=== PATIENT | female | born 1935 | race Caucasian/White ===

== ENCOUNTER 2016-11-24 22:56 | Inpatient (IN) | payer MEDICARE, MEDICAID ==
--- NOTE | 2016-11-24 23:28 | ED Physician Chart ---
Chief Complaint/HPI - Patient Information Date Seen:: 11/24/16 Time Seen:: 23:10 Chief Complaint:: agitation History of Present Illness:: reportedly yelling at staff at SNF. Allergies:: Allergies Allergy/AdvReac Type Severity Reaction Status Date / Time No Known Allergies Allergy Verified 11/24/16 23:14 Historian:: Patient Review:: Nurse's Note Reviewed Review of Systems - Review of Systems General/Constitutional: No fever, No chills Skin: No skin lesions Head: No headache Eyes: No loss of vision ENT: No earache Neck: No neck pain, No thyromegaly Cardio Vascular: No chest pain, No palpitations Pulmonary: No SOB GI: No nausea, No vomiting G/U: No dysuria Musculoskeletal: No bone or joint pain Endocrine: No polyuria, No polydipsia Psychiatric: Prior psych history Hematopoietic: No bruising Allergic/Immuno: No urticaria Neurological: No syncope Past Medical History - Past Medical History Past Medical History: HTN, Dyslipidemia, Dementia, Other (hyperlipidemia; psychosis; hearin impaired) Family History: Heart disease, HTN Social History: No Alcohol, Other (former smoker) Surgical History: other (tonsillectomy) Psychiatricy History: Dementia Medication: Reviewed Family Medical History - Family Member Mother History Unknown: Yes Physical Exam - Physical Examination General/Constitutional: Well-developed, well-nourished, Alert, No distress Other Gen/Cons comments:: know the correct month but not the correct year. Head: Atraumatic Eyes: Lids, conjuctiva normal, PERRL Skin: Nl inspection, No rash, No skin lesions, No ecchymosis ENMT: External ears, nose nl, TM canals nl, Nasal exam nl, Lips, teeth, gums nl , Oropharynx nl, Tonsils nl Neck: No nuchal rigidity Respiratory: Nl effort/Exclusion, Clear to Auscultation, No Wheeze/Rhonchi/Rales Cardio Vascular: RRR Other Cardio Vascular comments:: 4/6 systolic murmur GI: No tenderness/rebounding/guarding, No organomegaly : No CVA tenderness Extremities: Normal digits & nails Other Extremities comments:: 1/4 pretibial edema; varicose veins Neuro/Psych: No focal deficits Labs/Radiology/EKG Results - Lab Results Results: Laboratory Results - last 24 hr 11/24/16 11/24/16 11/24/16 23:29 23:29 23:29 WBC 5.9 RBC 3.84 Hgb 11.4 L Hct 33.3 L MCV 86.9 MCH 29.7 MCHC Differential 34.2 RDW 12.2 Plt Count 174 MPV 8.5 Neutrophils % 66.2 Lymphocytes % 24.4 Monocytes % 6.0 Eosinophils % 3.4 Basophils % 0.0 Sodium 136 Potassium 4.1 Chloride 111 H Carbon Dioxide 25.9 Anion Gap 3.2 L BUN 38 H Creatinine 1.0 Est GFR ( Amer) TNP Est GFR (Non-Af Amer) TNP BUN/Creatinine Ratio 38.0 Glucose 86 Calcium 9.3 Total Bilirubin 0.4 AST 14 ALT 9 Alkaline Phosphatase 59 Total Protein 6.5 Albumin 3.6 L Globulin 2.9 Albumin/Globulin Ratio 1.2 TSH 2.11 Urine Source Urine Color Urine Clarity Urine pH Ur Specific [place] Urine Protein Urine Glucose (UA) Urine Ketones Urine Blood Urine Nitrate Urine Bilirubin Urine Urobilinogen Ur Leukocyte Esterase Urine RBC Urine WBC Ur Epithelial Cells Urine Bacteria 11/24/16 23:45 WBC RBC Hgb Hct MCV MCH MCHC Differential RDW Plt Count MPV Neutrophils % Lymphocytes % Monocytes % Eosinophils % Basophils % Sodium Potassium Chloride Carbon Dioxide Anion Gap BUN Creatinine Est GFR ( Amer) Est GFR (Non-Af Amer) BUN/Creatinine Ratio Glucose Calcium Total Bilirubin AST ALT Alkaline Phosphatase Total Protein Albumin Globulin Albumin/Globulin Ratio TSH Urine Source CLEAN C Urine Color YELLOW Urine Clarity SLIGHT HAZY Urine pH 5.5 Ur Specific [place] 1.020 Urine Protein NEGATIVE Urine Glucose (UA) NEGATIVE Urine Ketones NEGATIVE Urine Blood TRACE Urine Nitrate NEGATIVE Urine Bilirubin NEGATIVE Urine Urobilinogen 0.2 Ur Leukocyte Esterase SMALL H Urine RBC 0-2 Urine WBC 10-25 H Ur Epithelial Cells FEW Urine Bacteria 1+ H - EKG Interpretations Rate & Rhythm: NSR; rate 56 [place]: normal Intervals: normal Comments:: borderline first degree AV block; old septal WI Assessment - Assessment General Assessment: oral rehydration should be sufficient. ED Septic Shock - . Is Septic Shock (SBP<90, OR Lactate>4 mmol\L) present?: No Reassessment (Disposition) - Reassessment Reassessment Condition:: Unchanged - Diagnosis Diagnosis:: anemia; dehydration; UTI; agitation - Patient Disposition Admitted to:: [facility] Admitting Medical Physician:: Ayan Hunter Admitting Psych Physician:: Gasper Jimenez Condition at Disposition:: Unchanged
[2016-11-24 23:42] LABS: % EOSINOPHILS 3.4 % (0.0-5.0); % LYMPHOCYTES 24.4 % (20.0-50.0); % NEUTROPHILS 66.2 % (40.0-80.0); HEMATOCRIT 33.3 % (35.0-45.0); HEMOGLOBIN 11.4 gm/dL (11.7-16.1); MEAN CELL VOLUME 86.9 fl (81-100); MEAN CORPUSCULAR HEMOGLOBIN 29.7 pg (27.0-31.0); MEAN CORPUSCULAR HGB CONC 34.2 pg (28.0-36.0); MEAN PLATELET VOLUME 8.5 fl; NEUTROPHILE ABSOLUTE 3.9 Th/cmm (1.8-8.0); PLATELET COUNT 174 Th/cmm (150-400); RED BLOOD COUNT 3.84 Mil/cmm (3.80-5.20); RED CELL DISTRIBUTION WIDTH 12.2 % (11.5-20.0); WHITE BLOOD COUNT 5.9 Th/cmm (4.8-10.8)
[2016-11-24 23:50] LABS: ALB/GLOB RATIO 1.2 (1.0-1.8); ALKALINE PHOSPHATASE 59 U/L (34-104); ANION GAP 3.2 (7.0-16.0); BILIRUBIN,TOTAL 0.4 mg/dL (0.3-1.0); BUN - UREA NITROGEN 38 mg/dL (7-25); CALCIUM SERUM 9.3 mg/dL (8.6-10.3); CARBON DIOXIDE 25.9 mEq/L (21.0-31.0); CHLORIDE 111 mEq/L (98-107); GLUCOSE 86 mg/dL (70-105); POTASSIUM SERUM 4.1 mEq/L (3.5-5.1); SGOT 14 U/L (13-39); SGPT/ALT 9 U/L (7-52); SODIUM SERUM 136 mEq/L (136-145)
[2016-11-25 00:05] LABS: URINE BILIRUBIN NEGATIVE (NEGATIVE); URINE BLOOD TRACE (NEGATIVE); URINE COLOR YELLOW; URINE GLUCOSE (UA) NEGATIVE (NEGATIVE); URINE KETONE NEGATIVE (NEGATIVE); URINE PH 5.5; URINE PROTEIN NEGATIVE (NEGATIVE); URINE UROBILINOGEN 0.2 E.U./dL (0.2 - 1.0)
[2016-11-25 00:06] LABS: URINE BACTERIA 1+ /hpf (NONE SEEN); URINE EPITHELIAL CELLS FEW /lpf (FEW); URINE RBC 0-2 /hpf (0-5)
[2016-11-25] MEDS ORDERED: Magnesium Hydroxide (MOM) 30 mL UDC PO PRN (01:07)
[2016-11-25] MEDS ORDERED: Acetaminophen 500 MG TAB PO PRN (01:20)
[2016-11-25 01:27] VITALS: BP 134/76
[2016-11-25] MEDS: Atorvastatin Calcium 10 MG TAB PO SCH (08:24)
[2016-11-25] MEDS: Aspirin 81mg Chewable Tab PO SCH (08:25)
[2016-11-25] MEDS: Lactobacillus Rhamnosus 10 Billion CFU Capsule PO SCH (08:25)
--- NOTE | 2016-11-25 21:38 | Admit Criteria Form ---
Admit Criteria Forms - Admit Criteria Diagnosis: PSYCHIATRIC DISORDERS Clinical Indications for Inpatient Care (Place 'X' for any and all applicable criteria): Ongoing inpatient care may be needed for ANY ONE of the following(1)(2)(3)(4)(6) (7)(8): [ ]I. Danger to self or others not manageable at lower level of care. [ ]II. Grave disability (eg, inability to perform self care necessary at lower level of care) [X]III. Agitation or inappropriate behavior interfering with care for primary condition (eg, attempting to discontinue lines or drains prematurely, unable to cooperate with respiratory care) [ ]IV. Severe disability or disorder indicated by ALL of the following: [ ]a) Severe behavioral health disorder-related symptoms or condition indicated by ANY ONE of the following: [ ]i) Severe problem with cognition, memory, judgment, or impulse control [ ]ii) Severe clinical manifestations (eg, hallucinations, delusions, other acute psychotic symptoms, brayan, extreme agitation or anxiety) [ ]b) Patient management at lower level of care is not feasible until acute intervention or modification is initiated. Extended stay beyond goal length of stay for the primary condition may be indicated when ANY ONE of the following is present: (1)(2)(3)(4): [ ]a) Patient is a danger to self or others and not manageable at lower level of care. [ ]b) Behavior crisis management, including physical or chemical restraints, is required and is not available at a lower level of care. [ ]c) Behavioral symptoms (e.g., agitation, somnolence, inappropriate behavior) are present, and are not manageable at a lower level of care. [ ]d) Patient cannot understand follow-up treatment and crisis plan. [ ]e) Provider and supports are not sufficiently available at lower level of care. [ ]f) Patient cannot participate (e.g., verify absence of plan for harm) and is in needed of monitoring. The original [facility] [employer] content created by [facility] [employer] has been revised. The portions of the content which have been revised are identified through the use of italic text or in bold, and [facility] [employer] has neither reviewed nor approved the modified material. All other unmodified content is copyright [facility] [employer]. Please see references footnoted in the original [facility] edition 2016 Admit Criteria Met?: Yes
--- NOTE | 2016-11-25 23:48 | Psychosocial Evaluation ---
FACILITY: [facility] PATIENT NAME: CASANDRA VALDEZ MR#: [id number] CLINICIAN: Gasper Jimenez M.D. DATE OF ADMISSION: 11/25/2016 DATE OF VISIT: JUSTIFICATION FOR HOSPITALIZATION: Aggressive, yelling at [facility], screaming uncontrollably, unable to be cared for at a lower level of care. CHIEF COMPLAINT: "I do not know why I am here." HISTORY OF PRESENT ILLNESS: An 81-year-old female, unclear psychiatric history, apparently was agitated at the [facility], yelling, yelling uncontrollably, screaming at nursing staff, alert and oriented to name. She knows she is in the hospital. She has no idea why she is in the hospital. She does not know the state that she is in, attesting to depression, feeling upset, overwhelmed, fair sleep, fair appetite. PAST PSYCHIATRIC HISTORY: Denies. "I do not think so." FAMILY HISTORY: Unknown. SOCIAL HISTORY: The patient born in [place], not , one son who she states lives in [place]. Denies drugs. Denies alcohol. Denies tobacco. MEDICATIONS: Reviewed. Under medical, please see full H and P by Dr. Hunter. MENTAL STATUS EXAMINATION: Stated age, fair eye contact. Speech was within normal limits. Mood clinically bad. Affect angry. Thought processes were fragmented. No SI, no HI. No overt evidence of psychosis, but she is somewhat confused as to why and how she got here. Poor insight, poor judgment, questionable impulsivity. PROVISIONAL DIAGNOSES: Mood unspecified, psychosis unspecified, anxiety unspecified. Under medical, please see full H and P. ESTIMATED LENGTH OF STAY: 7-10 days. ASSESSMENT: The patient is requiring inpatient hospitalization, yelling, screaming uncontrollably, unable to be cared for at a lower level of care, aggressive, agitated. PLAN: We will restart medications. TREATMENT PLAN: Includes group as well as milieu therapy. CONDITIONS FOR DISCHARGE: Improved mood, improved affect, cessation of any SI or HI, better control of any psychotic or mood symptoms. JOB# [id number] ASIYA
[2016-11-26] MEDS: Atorvastatin Calcium 10 MG TAB PO SCH (08:45)
[2016-11-26] MEDS: Lactobacillus Rhamnosus 10 Billion CFU Capsule PO SCH (08:45)
[2016-11-26] MEDS: Aspirin 81mg Chewable Tab PO SCH (08:45)
--- NOTE | 2016-11-27 02:32 | Progress Notes ---
SUBJECTIVE: The patient was seen, chart reviewed, and discussed with staff. The patient remains aggressive, verbally aggressive, confused, disorganized, screaming, yelling, stating, "Did you tell the staff that I'm a criminal." The patient is paranoid, stating that I am not a doctor. "___What?_ you think I 'm crazy." Very difficult to interview. Staff concerned because of her disorganized and manic appearing behaviors. ASSESSMENT: The patient remains symptomatic, paranoid, confused, screaming, yelling episodes, angry, irritable, verbally ___abusive__ towards staff. PLAN: We will continue to monitor. The patient is not safe for a lower level of care. We will increase Seroquel dosing JOB# [id number] MTDD
[2016-11-27] MEDS: Atorvastatin Calcium 10 MG TAB PO SCH ×2 (09:28→09:36)
[2016-11-27] MEDS: Lactobacillus Rhamnosus 10 Billion CFU Capsule PO SCH ×2 (09:29→09:36)
[2016-11-27] MEDS: Aspirin 81mg Chewable Tab PO SCH ×2 (09:29→09:36)
--- NOTE | 2016-11-27 23:59 | Progress Notes ---
SUBJECTIVE: The patient is seen, chart reviewed, discussed with staff. The patient remains aggressive, yelling at me, screaming at me, claiming I came into the room in a middle of the night and changed her. The patient is essentially belligerent, screaming, I am not able to get any questions in, still remains symptomatic, resistive to care. ASSESSMENT: The patient remains symptomatic, paranoid, screaming, yelling, verbally accosting staff. PLAN: We will continue to monitor. The patient is not safe for a lower level of care. We will continue to titrate Seroquel. JOB# [id number]
[2016-11-28] MEDS: Atorvastatin Calcium 10 MG TAB PO SCH (09:47)
[2016-11-28] MEDS: Aspirin 81mg Chewable Tab PO SCH (09:47)
[2016-11-28] MEDS: Lactobacillus Rhamnosus 10 Billion CFU Capsule PO SCH (09:48)
--- NOTE | 2016-11-28 17:37 | History & Physical ---
ADMIT DATE: 11/25/2016 REASON FOR CONSULTATION: Medical management. HISTORY OF PRESENT ILLNESS: This is an 81-year-old female with underlying history of hypertension, hyperlipidemia, psychiatric disorder, was admitted to [facility] by Dr. Jimenez. Dr. Jimenez requested medical H and P on this patient. The patient states she is doing fine. C/o right hip pain. No recent fall or injury. Denies any lower extremity weakness or numbness. No chest pain, no shortness of breath, dizziness, palpitations or other complaints. PAST MEDICAL HISTORY: Hypertension, hyperlipidemia. PAST SURGICAL HISTORY: No reports of any past surgery. FAMILY HISTORY: Noncontributory. SOCIAL HISTORY: Lives at nursing facility. No reported alcohol, tobacco or street drug use. CURRENT MEDICATIONS: The patient is currently on Tylenol, aspirin, atorvastatin, vitamin D3, ciprofloxacin, Celexa, Vistaril, Ativan, and Colace. ALLERGIES: No known drug allergies. REVIEW OF SYSTEMS: As per HPI, 12-point system appears negative. PHYSICAL EXAMINATION: VITAL SIGNS: Temperature 98.1, pulse 60, respirations 20, blood pressure 130/94, oxygen 96% on room air, pain 0/10. GENERAL APPEARANCE: The patient does not seem in acute distress. CARDIOVASCULAR: S1, S2 normal. LUNGS: Clear to auscultation bilaterally. ABDOMEN: Soft, nontender, no guarding and no rigidity. NEUROLOGIC: The patient is awake, but little confused. Follows commands. Neurological exam grossly nonfocal. AVAILABLE LABORATORY DATA: Reviewed ASSESSMENT: 1. Urinary tract infection, improving. 2. Right hip pain, possibly secondary to degenerative joint disease. 3. Hypertension. 4. Hyperlipidemia. 5. Generalized weakness. 6. Psychiatric disorder. PLAN: The patient will continue ciprofloxacin. NSAIDs as needed for pain. Continue Lipitor and aspirin. Monitor blood pressures. Continue Cozaar. Psych management per Dr. Jimenez. The patient's condition and plan of care discussed with nursing staff. JOB# [id number] [facility]
--- NOTE | 2016-11-29 02:23 | Progress Notes ---
DATE: 11/28/2016 SUBJECTIVE: The patient was seen, chart reviewed, and discussed with staff. The patient remains aggressive, yelling, screaming, forgetful, states she came from home, remains belligerent, symptomatic, labile, impulsive, resistive to care at times, still paranoid. She, on a positive note, is taking her medications, no side effects. Needs prompting for ADLs and prompting to eat. ASSESSMENT: The patient remains symptomatic, paranoid, still yelling, screaming, aggressive, and labile. PLAN: Continue to monitor. Continue to adjust her medications. Monitor for any overt side effects. [facility]# [id number]
--- NOTE | 2016-11-30 04:30 | Progress Notes ---
DATE: 11/29/2016 SUBJECTIVE: The patient seen, chart reviewed, and discussed with staff. The patient remains upset, still yelling, screaming episodes, rude, labile, irritable, and resistive to care. Still somewhat paranoid. However, she is taking medications. She seems somewhat calmer on exam. No side effects. Needing prompting for ADLs, prompting to eat. ASSESSMENT: The patient remains symptomatic, still yelling, screaming, aggressive, and labile. PLAN: We will continue to monitor. Continue to titrate medications. The patient is not safe for a lower level of care due to the severity of her symptoms. JOB# [id number]
[2016-11-30] MEDS: Atorvastatin Calcium 10 MG TAB PO SCH (09:39)
[2016-11-30] MEDS: Lactobacillus Rhamnosus 10 Billion CFU Capsule PO SCH (09:39)
[2016-11-30] MEDS: Aspirin 81mg Chewable Tab PO SCH (09:39)
--- NOTE | 2016-11-30 22:12 | Progress Notes ---
DATE: 11/30/2016 SUBJECTIVE: The patient seen, chart reviewed, discussed with staff. The patient still remains upset, still with some yelling episodes, screaming episodes, intrusive, demanding. At times, resistive to care; however, she does seem to be calmer, less paranoid, less suspicion, no longer making bizarre allegations, taking her medications, no side effects, seems to be tolerating medications, no EPS noted. No oversedation. Her discharge plan is unclear at this time. The patient remains symptomatic, not safe for a lower level of care. The patient is coming from [facility] ____ we are not quite certain whether she can go back there or not. The patient currently considered gravely disabled; therefore, cannot care for basic needs. ASSESSMENT: The patient is gravely disabled, unclear discharge planning, still symptomatic as noted. PLAN: Continue to monitor, encourage med compliance, we will continue to titrate medications as tolerated. [facility]# [id number]
[2016-12-01] MEDS: Aspirin 81mg Chewable Tab PO SCH (09:52)
[2016-12-01] MEDS: Atorvastatin Calcium 10 MG TAB PO SCH (09:53)
[2016-12-01] MEDS: Lactobacillus Rhamnosus 10 Billion CFU Capsule PO SCH (09:53)
--- NOTE | 2016-12-02 00:43 | Progress Notes ---
DATE: 12/01/2016 SUBJECTIVE: The patient was seen, chart reviewed, and discussed with staff. The patient is still screaming, yelling, asks for help, screams for help, and when help comes, she does not want it, bizarre, odd, demanding to leave, but unable to be cared for at a lower level of care given the severity of her current symptoms. The patient is eating fairly well and sleeping well. She is very isolative and withdrawn. No EPS noted. No overt sedation. ASSESSMENT AND PLAN: The patient remains symptomatic, yelling, screaming, still intrusive, verbally aggressive towards staff. PLAN: Continue to titrate medications. We will monitor closely for any undue side effects. The patient does have a pretty poor memory as well, claiming that she is able to live at home by herself, but she was coming from a nursing facility. JOB# [id number]
[2016-12-02] MEDS: Aspirin 81mg Chewable Tab PO SCH (09:56)
[2016-12-02] MEDS: Atorvastatin Calcium 10 MG TAB PO SCH (09:56)
[2016-12-02] MEDS: Lactobacillus Rhamnosus 10 Billion CFU Capsule PO SCH (09:56)
--- NOTE | 2016-12-02 13:10 | General Progress Note ---
Subjective - Review of Systems Service Date: 12/02/16 Subjective: patient doing ok nurse reported patient has been refusing her meds Objective - Results Result Diagrams: 11/24/16 23:29 11/24/16 23: Recent Labs: Laboratory Last Values WBC 5.9 Th/cmm (4.8-10.8) 11/24/16 23: RBC 3.84 Mil/cmm (3.80-5.20) 11/24/16 23: Hgb 11.4 gm/dL (11.7-16.1) L 11/24/16 23: Hct 33.3 % (35.0-45.0) L 11/24/16: MCV 86.9 fl (81-100) 11/24/16 23: MCH 29.7 pg (27.0-31.0) 11/24/16: MCHC Differential 34.2 pg (28.0-36.0) 11/24/16: RDW 12.2 % (11.5-20.0) 11/24/16: Plt Count 174 Th/cmm (150-400) 11/24/16 23: MPV 8.5 fl 11/24/16 23: Neutrophils % 66.2 % (40.0-80.0) 11/24/16: Lymphocytes % 24.4 % (20.0-50.0) 11/24/16: Monocytes % 6.0 % (2.0-10.0) 11/24/16: Eosinophils % 3.4 % (0.0-5.0) 11/24/16: Basophils % 0.0 % (0.0-2.0) 11/24/16 23: Sodium 136 mEq/L (136-145) 11/24/16 23: Potassium 4.1 mEq/L (3.5-5.1) 11/24/16 23: Chloride 111 mEq/L (98-107) H 11/24/16 23: Carbon Dioxide 25.9 mEq/L (21.0-31.0) 11/24/16 23: Anion Gap 3.2 (7.0-16.0) L 11/24/16 23: BUN 38 mg/dL (7-25) H 11/24/16 23:29 Creatinine 1.0 mg/dL (0.6-1.2) 11/24/16 23:29 Est GFR ( Amer) TNP 11/24/16 23:29 Est GFR (Non-Af Amer) TNP 11/24/16 23:29 BUN/Creatinine Ratio 38.0 11/24/16 23:29 Glucose 86 mg/dL (70-105) 11/24/16 23:29 Calcium 9.3 mg/dL (8.6-10.3) 11/24/16 23:29 Total Bilirubin 0.4 mg/dL (0.3-1.0) 11/24/16 23:29 AST 14 U/L (13-39) 11/24/16 23:29 ALT 9 U/L (7-52) 11/24/16 23:29 Alkaline Phosphatase 59 U/L (34-104) 11/24/16 23:29 Total Protein 6.5 gm/dL (6.0-8.3) 11/24/16 23:29 Albumin 3.6 gm/dL (3.7-5.3) L 11/24/16 23:29 Globulin 2.9 gm/dL 11/24/16 23:29 Albumin/Globulin Ratio 1.2 (1.0-1.8) 11/24/16 23: TSH 2.11 uIU/ml (0.34-5.60) 11/24/16 23:29 Urine Source CLEAN C 11/24/16 23:45 Urine Color YELLOW 11/24/16 23:45 Urine Clarity SLIGHT HAZY (CLEAR) 11/24/16 23:45 Urine pH 5.5 11/24/16 23:45 Ur Specific [place] 1.020 (1.005-1.030) 11/24/16 23:45 Urine Protein NEGATIVE mg/dL (NEGATIVE) 11/24/16 23:45 Urine Glucose (UA) NEGATIVE mg/dL (NEGATIVE) 11/24/16 23:45 Urine Ketones NEGATIVE mg/dL (NEGATIVE) 11/24/16 23:45 Urine Blood TRACE (NEGATIVE) 11/24/16 23:45 Urine Nitrate NEGATIVE (NEGATIVE) 11/24/16 23:45 Urine Bilirubin NEGATIVE (NEGATIVE) 11/24/16 23:45 Urine Urobilinogen 0.2 E.U./dL (0.2 - 1.0) 11/24/16 23:45 Ur Leukocyte Esterase SMALL (NEGATIVE) H 11/24/16 23:45 Urine RBC 0-2 /hpf (0-5) 11/24/16 23:45 Urine WBC 10-25 /hpf (0-5) H 11/24/16 23:45 Ur Epithelial Cells FEW /lpf (FEW) 11/24/16 23:45 Urine Bacteria 1+ /hpf (NONE SEEN) H 11/24/16 23:45 RPR NONREACTIVE (NONREACTIVE) 11/24/16 23:29 - Physical Exam Vitals and I&O: Vital Signs Temp 97.8 F 12/02/16 06:36 Pulse 60 12/02/16 06:36 Resp 19 12/02/16 06:36 BP 119/60 12/02/16 06:36 Pulse Ox 98 12/02/16 06:36 Intake & Output 12/01/16 12/02/16 12/02/16 18:59 06:59 18:59 Intake Total 1800 120 Balance 1800 120 Intake: Oral 1800 120 Other: # Voids 4 3 # Bowel Movements 0 Active Medications: Current Medications Acetaminophen (Tylenol Extra Strength) 1,000 mg PO Q4H PRN PRN Reason: Pain (Moderate) Stop: 01/24/17 01:19 Acetaminophen (Tylenol) 650 mg PO Q4HR PRN PRN Reason: Fever > 101 Stop: 01/24/17 01:06 Aspirin (Aspirin Chewable) 81 mg PO DAILY [facility] Stop: 01/24/17 08:59 Last Admin: 12/02/16 09:56 Dose: Not Given Atorvastatin Calcium (Lipitor) 5 mg PO DAILY [facility] PRN Reason: Protocol Stop: 01/24/17 08:59 Last Admin: 12/02/16 09:56 Dose: Not Given Cholecalciferol (Vitamin D3) 5,000 iu PO DAILY [facility] Stop: 01/24/17 08:59 Last Admin: 12/02/16 09:56 Dose: Not Given Citalopram Hydrobromide (Celexa) 20 mg PO DAILY [facility] PRN Reason: Protocol Stop: 01/24/17 08:59 Last Admin: 12/02/16 09:56 Dose: Not Given Docusate Sodium (Colace) 100 mg PO DAILY [facility] Stop: 01/24/17 08:59 Last Admin: 12/02/16 09:56 Dose: Not Given Hydroxyzine Pamoate (Vistaril) 25 mg PO DAILY PRN; Protocol PRN Reason: Anxiety Stop: 01/24/17 01:06 Lactobacillus Rhamnosus (Culturelle) 1 each PO DAILY [place] Stop: 01/24/17 08:59 Last Admin: 12/02/16 09:56 Dose: Not Given Lorazepam (Ativan) 0.5 mg PO Q4HR PRN; Protocol PRN Reason: Anxiety Stop: 12/25/16 01:02 Losartan Potassium (Cozaar) 100 mg PO DAILY [place] Stop: 01/24/17 08:59 Last Admin: 12/02/16 09:56 Dose: Not Given Magnesium Hydroxide (Milk Of Magnesia) 30 ml PO HS PRN PRN Reason: Constipation Stop: 01/24/17 01:06 Quetiapine Fumarate (Seroquel) 50 mg PO HS [place] PRN Reason: Protocol Stop: 01/25/17 06:59 Last Admin: 12/01/16 21:05 Dose: 50 mg Zolpidem Tartrate (Ambien) 5 mg PO HS PRN PRN Reason: Insomnia Stop: 01/24/17 01:02 Cardiovascular: Normal S1, Normal S2 Lungs: Clear to auscultation Assessment/Plan - Assessment Assessment: HTN HYPERLIPIDEMIA PSYCH DISORDER NON COMPLIANCE - Plan Plan: Medication compliance advised Continue current meds Psych follow up Nutritional Asmnt/Malnutr-PDOC - Dietary Evaluation Malnutrition Findings (Please click <Entered> for more info): Nutritional Asmnt/Malnutrition Start: 11/29/16 14: 07 Text: Status: Complete Freq: Document 11/29/16 14:07 [facility] (Rec: 11/29/16 14:17 [id number]) Nutritional Asmnt/Malnutrition Patient General Information Nutritional Screening Moderate Risk Screening Diagnosis UTI (improving), agitation Pertinent Medical Hx/Surgical Hx HTN, hyperlipidemia, Subjective Information 81 year old female from SNF. Pt was pleasant, sitting upright in bed eating lunch, no difficulties noted. Pt denied nutritional concerns at this time. Pt stated does not know UBW, but has not gained/ lost weight recently. Pt refused few meals, avg PO intake 75-100% of meals, meeting nutritional needs. Unable to obtain CBW via bedscale due to heavy blankets . Current Diet Order/ Nutrition Support [facility] chopped, low fat, ERIC Pertinent Medications Lipitor, Vitamin D3, Colace, MOM, Seroquel Pertinent Labs Reviewed. Nutritional Hx/Data Height 1.6 m Height (Calculated Centimeters) 160.0 Current Weight (lbs) 72.575 kg Weight (Calculated Kilograms) 72.6 Weight (Calculated Grams) 41287.8 [place] Body Weight 115 Recent Weight Change No Weight Status Overweight GI Symptoms Usual diet at home Madelaine Segura: regular, low fat, ERIC Skin Integrity/Comment: Wilman Wallis. Skin intact. Current %PO Good (75-100%) Estimated Nutritional Goals BEE in Kcals: Adj wt of IBW Calories/Kcals/Kg AdjBW 126.3lb/57.4kg Kcals Calculated 1435-1722kcal (25-30kcal/kg) Protein: Adj wt of IBW Protein Calculated 57g (1g/kg) Fluid: ml 1435-1722ml (1ml/kcal) Nutritional Problem 1. Problem Problem No nutritional problems at this time. Intervention/Recommendation Comments 1. Continue with [facility] chopped low fat ERIC diet. Avg PO intake is adequate. Encourage no skipping meals. Expected Outcomes/Goals Expected Outcomes/Goals 1. PO intake continue to meet at least 75% of estimated nutritional needs.
[2016-12-03] MEDS: Aspirin 81mg Chewable Tab PO SCH (08:55)
[2016-12-03] MEDS: Atorvastatin Calcium 10 MG TAB PO SCH (08:56)
[2016-12-03] MEDS: Lactobacillus Rhamnosus 10 Billion CFU Capsule PO SCH (08:58)
--- NOTE | 2016-12-04 00:02 | Progress Notes ---
DATE: 12/02/2016 SUBJECTIVE: The patient was seen, chart reviewed, discussed with staff. The patient is still symptomatic, still yelling with screaming episodes, still resistive to care; however, she does appear to be calmer, more engaged, more oriented, a little bit friendlier, asking about her disposition. We have found a place for her to go, but as of right now she remains resistive to care, impulsive, unpredictable, still lashing out at staff. ASSESSMENT: The patient remains symptomatic, still lashing out, verbally aggressive, still tangential at times, still forgetful. PLAN: Continue to monitor and titrate medications. Given the severity of the patient's current symptoms, she is not safe for discharge at this time, but does seem to be improving. [facility]# [id number]
--- NOTE | 2016-12-04 03:37 | Progress Notes ---
DATE: 12/03/2016 Case was discussed with staff of the patient, reviewed records. This is an 81-year-old female who was admitted on the 11/25/2016, because of agitation, aggressive behavior, yelling at the assisted, screaming uncontrollably, unable to be cared for at a lower level of care, very agitated and hard to redirect. She is oriented to name only. She knew she was in the hospital. She has no idea why she was in the hospital. She so far has been compliant with the medication with no side effects, no sedation, no nausea and has been on Seroquel 50 mg at bedtime with no side effects, no sedation and no nausea. Also, she is on Celexa 20 mg daily. We will continue to work with the patient in group therapy, milieu therapy and adjust medication as needed. JOB# [id number]
[2016-12-04] MEDS: Atorvastatin Calcium 10 MG TAB PO SCH (09:57)
[2016-12-04] MEDS: Aspirin 81mg Chewable Tab PO SCH (09:57)
[2016-12-04] MEDS: Lactobacillus Rhamnosus 10 Billion CFU Capsule PO SCH (10:00)
--- NOTE | 2016-12-05 05:07 | Progress Notes ---
DATE: 12/04/[address] Jimenez. Case was discussed with staff of the patient, reviewed records. The patient continues to have episodes of agitation, irritability, yelling at staff. At times screaming uncontrollably. Continues to be demented, confused, unable to make safe plan for self-care. She continues to have poor insight. She has been compliant with medication with no side effects, no sedation, no nausea and no extrapyramidal symptoms. We will continue to work with the patient in group therapy, milieu therapy and adjust medication as needed. JOB# [id number]
[2016-12-05] MEDS: Atorvastatin Calcium 10 MG TAB PO SCH (08:33)
[2016-12-05] MEDS: Lactobacillus Rhamnosus 10 Billion CFU Capsule PO SCH (08:34)
[2016-12-05] MEDS: Aspirin 81mg Chewable Tab PO SCH (08:34)
--- NOTE | 2016-12-06 08:06 | Progress Notes ---
DATE: 12/05/2016 SUBJECTIVE: The patient was seen, chart reviewed, and discussed with staff. The patient remains symptomatic, still escalates at times, argumentative, requiring a lot of redirection, confusion noted, difficulty with memory, decline at times, because of poor memory difficulty coping, still escalates agitates, noted to be taking her medications, more redirectable. ASSESSMENT: The patient remains symptomatic, still confused at times, still escalates, still can be dangerous. PLAN: Continue to monitor. We will titrate medications. There are continued safety concerns. JOB# [id number]
[2016-12-06] MEDS: Aspirin 81mg Chewable Tab PO SCH (08:39)
[2016-12-06] MEDS: Atorvastatin Calcium 10 MG TAB PO SCH (08:40)
[2016-12-06] MEDS: Lactobacillus Rhamnosus 10 Billion CFU Capsule PO SCH (08:42)
--- NOTE | 2016-12-07 05:39 | Progress Notes ---
DATE: 12/06/2016 SUBJECTIVE: The patient was seen, chart reviewed, and discussed with staff. The patient seems to be improving, calmer, more cooperative, taking her medications, not escalating less agitated, more redirectable, still somewhat confused, sleeping well, and eating well. No overt SI or HI. Placement confirmed. ASSESSMENT: The patient does seem to be improving, confusion noted, but more redirectable. PLAN: Continue to monitor and titrate medications. We will coordinate care with social work regarding safe discharge plan and good psychiatric followup. JOB# [id number]
[2016-12-07] MEDS: Atorvastatin Calcium 10 MG TAB PO SCH (09:04)
[2016-12-07] MEDS: Aspirin 81mg Chewable Tab PO SCH (09:05)
[2016-12-07] MEDS: Lactobacillus Rhamnosus 10 Billion CFU Capsule PO SCH (09:05)
--- NOTE | 2016-12-08 07:15 | Progress Notes ---
DATE: 12/07/2016 COVERING FOR: Dr. Jimenez. This is a well known case to me. I have seen her before covering for Dr. Jimenez. The patient was reportedly doing better. However, apparently she did not agree to take her medication today. She was supposed to have been discharged. We will try to talk to the patient to take her medications. So the patient will be need to be able to take her medications, so we can discharge her. She is going to [facility] and so far no side effects with the medication, no sedation, no nausea and we will continue to work with the patient in group therapy, milieu therapy and adjust the medication as needed. The patient will be able to go home once she starts being compliant with her medication. JOB# [id number]
[2016-12-08] MEDS: Atorvastatin Calcium 10 MG TAB PO SCH (09:08)
[2016-12-08] MEDS: Aspirin 81mg Chewable Tab PO SCH (09:09)
[2016-12-08] MEDS: Lactobacillus Rhamnosus 10 Billion CFU Capsule PO SCH (09:09)
--- NOTE | 2016-12-09 05:28 | Progress Notes ---
DATE: 12/08/2016 Case was discussed with staff of the patient, reviewed records. The patient was ____ to be discharged yesterday, but we held on her discharge because she refused to take her medications yesterday. Later on she took it with a lot of prompting. Today, she was able to take her medications, so I do have plan to discharge her tomorrow if she continues to take her medications. The patient is impulsive, unpredictable and depressed. She however will be going to a prison, so it would be a good discharge plan for her and she could be cared for at that level assuming she will continue to take her medication and no side effects with the medication, no sedation, no nausea and no extrapyramidal symptoms. We will continue to work with the patient in group therapy, milieu therapy and adjust medications. JOB# [id number]
[2016-12-09] MEDS: Lactobacillus Rhamnosus 10 Billion CFU Capsule PO SCH (09:54)
[2016-12-09] MEDS: Aspirin 81mg Chewable Tab PO SCH (09:57)
[2016-12-09] MEDS: Atorvastatin Calcium 10 MG TAB PO SCH (10:01)
--- NOTE | 2016-12-09 20:59 | Discharge Summary ---
DATE OF DISCHARGE: 12/09/[address] Jimenez. IDENTIFYING INFORMATION: The patient is an 81-year-old female. CHIEF COMPLAINT: The patient has been aggressive, yelling at the correction, screaming, uncontrolled and unable to care for at lower level of care. The patient did not know why she was here. HISTORY OF PRESENT ILLNESS: The patient has unclear psychiatric history: She was agitated at the correction, yelling uncontrollably and oriented to ____ she knows she is in the hospital. She has no idea why she is in the hospital. Does not know the state that she is ____ to depression, feeling upset, overwhelmed, sleeping well and eating well. COURSE IN THE HOSPITAL: The patient was continued on medications. She was on aspirin, atorvastatin and citalopram was added. Continue 20 mg a day and she was on losartan. Seroquel was added and the dose was increased to 75 mg at bedtime. She was also on hydroxyzine as needed and Ambien. The patient progressively got better. Dr. Jimenez recommended that the patient get discharged; however, for the day that she recommended. She refused to take medication, so I kept 2 days extra and she was taking her medications, so as she improved, she was no longer acting out. She is no longer refusing medication. She was sleeping well, eating well. No longer acting in anyway dangerous. We felt she could be going back to the correction. FINAL DIAGNOSES: AXIS I: Psychosis, NOS, dementia. The patient will be discharged today with followup with the psychiatrist, primary care physician and a therapist. The patient will be going to [facility]. EXPECTED OUTCOME: Stable if the patient complies with the above. JOB# [id number]
== END 2016-12-09 14:30 | DRG 884 ==
LOC: ER 22:56 → GERO 11-25 00:45
PROVIDERS: ADMIT Psychiatry & Neurology Psychiatry; ATTEND Psychiatry & Neurology Psychiatry
PROC: GZHZZZZ Group Psychotherapy (ICD-10-PCS; principal; 2016-11-25)
DX: F03.90 Unspecified dementia, unspecified severity, without behavioral disturbance, psychotic disturbance, mood disturbance, and anxiety (principal); E86.0 Dehydration; N39.0 Urinary tract infection, site not specified; I10 Essential (primary) hypertension; E78.5 Hyperlipidemia, unspecified; F29 Unspecified psychosis not due to a substance or known physiological condition; D64.9 Anemia, unspecified; F39 Unspecified mood [affective] disorder; F41.9 Anxiety disorder, unspecified; M25.551 Pain in right hip; R53.1 Weakness; Z91.14 Patient's other noncompliance with medication regimen; Z82.49 Family history of ischemic heart disease and other diseases of the circulatory system; Z87.891 Personal history of nicotine dependence
CPT/HCPCS: 36415-UA; 80053-TC; 81001-TC; 81003-TC; 84443-TC; 85025-TC; 86592-TC; 87086-90; 90899; 93005; 97530; G0410; Q0177; X3904; Z7610

== ENCOUNTER 2018-07-06 15:36 | Inpatient (IN) | payer MEDICARE, MEDICAID ==
[2018-07-06 16:12] LABS: % BASOPHILS 0.3 % (0.0-2.0); % EOSINOPHILS 4.2 % (0.0-5.0); % LYMPHOCYTES 14.3 % (20.0-50.0); % NEUTROPHILS 74.2 % (40.0-80.0); EOSINOPHILE ABSOLUTE 0.3 Th/cmm (0.1-0.4); HEMATOCRIT 38.1 % (41.0-60); HEMOGLOBIN 12.7 gm/dL (12-16); MEAN CELL VOLUME 87.7 fl (81-100); MEAN CORPUSCULAR HEMOGLOBIN 29.2 pg (27.0-31.0); MEAN CORPUSCULAR HGB CONC 33.3 pg (28.0-36.0); MEAN PLATELET VOLUME 8.2 fl; MONOCYTE ABSOLUTE 0.5 Th/cmm (0.3-1.0); NEUTROPHILE ABSOLUTE 4.9 Th/cmm (1.8-8.0); PLATELET COUNT 236 Th/cmm (150-400); RED BLOOD COUNT 4.34 Mil/cmm (3.80-5.20); RED CELL DISTRIBUTION WIDTH 12.5 % (11.5-20.0); WHITE BLOOD COUNT 6.7 Th/cmm (4.8-10.8)
[2018-07-06 16:15] LABS: URINE SOURCE CLEAN C
[2018-07-06 16:19] LABS: URINE BILIRUBIN NEGATIVE (NEGATIVE); URINE BLOOD TRACE (NEGATIVE); URINE GLUCOSE (UA) NEGATIVE (NEGATIVE); URINE KETONE NEGATIVE (NEGATIVE); URINE LEUKOCYTE ESTERASE NEGATIVE (NEGATIVE); URINE MICROSCOPIC INDICATED? YES; URINE NITRATE NEGATIVE (NEGATIVE); URINE PROTEIN TRACE mg/dL (NEGATIVE); URINE UROBILINOGEN 0.2 E.U./dL (0.2 - 1.0)
[2018-07-06 16:35] LABS: ALB/GLOB RATIO 1.2 (1.0-1.8); ALBUMIN 3.8 gm/dL (3.7-5.3); ALKALINE PHOSPHATASE 81 U/L (34-104); ANION GAP 13.7 (7.0-16.0); BILIRUBIN,TOTAL 0.4 mg/dL (0.3-1.0); BUN - UREA NITROGEN 26 mg/dL (7-25); CALCIUM SERUM 9.5 mg/dL (8.6-10.3); CARBON DIOXIDE 25.4 mEq/L (21.0-31.0); CHLORIDE 106 mEq/L (98-107); CREATININE - SERUM 0.8 mg/dL (0.6-1.2); GLUCOSE 104 mg/dL (70-105); PHOSPHOROUS 3.2 mg/dL (2.5-5.0); POTASSIUM SERUM 4.1 mEq/L (3.5-5.1); SGOT 17 U/L (13-39); SGPT/ALT 13 U/L (7-52); SODIUM SERUM 141 mEq/L (136-145); TOTAL PROTEIN,SERUM 7.1 gm/dL (6.0-8.3)
[2018-07-06 17:39] LABS: URINE CLARITY CLEAR (CLEAR); URINE COLOR YELLOW
[2018-07-06 17:41] LABS: URINE BACTERIA FEW /hpf (NONE SEEN); URINE EPITHELIAL CELLS FEW /lpf (FEW); URINE WBC 0-2 /hpf (0-5)
--- NOTE | 2018-07-06 18:06 | ED Physician Chart ---
ED Chief Complaint/HPI - Patient Information Date Seen:: 07/06/18 Time Seen:: 15:41 Chief Complaint:: UTI and weakness History of Present Illness:: UTI and weakness Allergies:: Allergies Allergy/AdvReac Type Severity Reaction Status Date / Time No Known Allergies Allergy Verified 11/24/16 23:14 Vitals:: Vital Signs - 8 hr 07/06/18 15:41 Temp 98.4 F HR 71 RR 18 BP 182/65 O2 Sat % 95 Historian:: Medical Records Review:: Transfer documents Reviewed ED Review of Systems - Review of Systems General/Constitutional: No fever, No chills, No weight loss, Weakness, No diaphoresis, No edema, No loss of appetite Skin: No skin lesions, No rash, No bruising Head: No headache, No light-headedness Eyes: No loss of vision, No pain, No diplopia ENT: No earache, No nasal drainage, No sore throat, No tinnitus Neck: No neck pain, No swelling, No thyromegaly, No stiffness, No mass noted Cardio Vascular: No chest pain, No palpitations, No PND, No orthopnea, No edema Pulmonary: No SOB, No cough, No sputum, No wheezing GI: No nausea, No vomiting, No diarrhea, No pain, No melena, No hematochezia, No constipation, No hematemesis G/U: No dysuria, No frequency, No hematuria Musculoskeletal: No bone or joint pain, No back pain, No muscle pain ED Past Medical History - Past Medical History Past Medical History: HTN, Dyslipidemia, Dementia Psychiatricy History: Dementia, Other (anxiety) Family Medical History - Family Member Mother History Unknown: Yes ED Physical Exam - Physical Examination General/Constitutional: Awake, Well-developed, well-nourished, Alert, No distress, Non-toxic appearing, Ambulatory Head: Atraumatic Eyes: Lids, conjuctiva normal, PERRL, EOMI Skin: Nl inspection, No rash, No skin lesions, No ecchymosis, Well hydrated, No lymphadenopathy ENMT: External ears, nose nl Neck: Nontender, No nuchal rigidity, No stridor Respiratory: Nl effort/Exclusion, Clear to Auscultation, No Wheeze/Rhonchi/Rales Cardio Vascular: RRR, No murmur, gallop, rubs, NL S1 S2 GI: No tenderness/rebounding/guarding, No organomegaly, No hernia, Normal BS's, Nondistended, No mass/bruits, No McBurney tenderness : No CVA tenderness Extremities: No tenderness or effusion, Full ROM, normal strength in all extremities Other Neuro/Psych comments:: yells out loud occasionally (very hard of hearing---reason she gave for yelling out loud). Misc: Normal back ED Labs/Radiology/EKG Results - Lab Results Results: Laboratory Tests 07/06/18 07/06/18 07/06/18 16:04 16:04 16:04 WBC 6.7 RBC 4.34 Hgb 12.7 Hct 38.1 L MCV 87.7 MCH 29.2 MCHC Differential 33.3 RDW 12.5 Plt Count 236 MPV 8.2 Neutrophils % 74.2 Lymphocytes % 14.3 L Monocytes % 7.0 Eosinophils % 4.2 Basophils % 0.3 Sodium 141 Potassium 4.1 Chloride 106 Carbon Dioxide 25.4 Anion Gap 13.7 BUN 26 H Creatinine 0.8 Est GFR ( Amer) TNP Est GFR (Non-Af Amer) TNP BUN/Creatinine Ratio 32.5 Glucose 104 Calcium 9.5 Phosphorus 3.2 Magnesium 2.0 Total Bilirubin 0.4 AST 17 ALT 13 Alkaline Phosphatase 81 Total Protein 7.1 Albumin 3.8 Globulin 3.3 Albumin/Globulin Ratio 1.2 TSH 2.23 Urine Source Urine Color Urine Clarity Urine pH Ur Specific [place] Urine Protein Urine Glucose (UA) Urine Ketones Urine Blood Urine Nitrate Urine Bilirubin Urine Urobilinogen Ur Leukocyte Esterase Urine RBC Urine WBC Ur Epithelial Cells Urine Bacteria Urine Mucus 07/06/18 16:10 WBC RBC Hgb Hct MCV MCH MCHC Differential RDW Plt Count MPV Neutrophils % Lymphocytes % Monocytes % Eosinophils % Basophils % Sodium Potassium Chloride Carbon Dioxide Anion Gap BUN Creatinine Est GFR ( Amer) Est GFR (Non-Af Amer) BUN/Creatinine Ratio Glucose Calcium Phosphorus Magnesium Total Bilirubin AST ALT Alkaline Phosphatase Total Protein Albumin Globulin Albumin/Globulin Ratio TSH Urine Source CLEAN C Urine Color YELLOW Urine Clarity CLEAR Urine pH 6.0 Ur Specific [place] 1.025 Urine Protein TRACE Urine Glucose (UA) NEGATIVE Urine Ketones NEGATIVE Urine Blood TRACE Urine Nitrate NEGATIVE Urine Bilirubin NEGATIVE Urine Urobilinogen 0.2 Ur Leukocyte Esterase NEGATIVE Urine RBC 2-5 Urine WBC 0-2 Ur Epithelial Cells FEW Urine Bacteria FEW Urine Mucus FEW ED Assessment - Assessment General Assessment: called Dr. Wilson to tell him that the UA is negative. He said that he would call us back. T.C. at [address] Wilson again on his cell phone at 7 p.m. went to voice mail which is full. Assessment/Comments:: sign out given to Dr. Allen re need to get back in touch with Dr. Wilson. ED Septic Shock - . Is Septic Shock (SBP<90, OR Lactate>4 mmol\L) present?: No - <6hrs of presentation: Vital Signs: Vital Signs - 8 hr //18 15:41 Temp 98.4 F HR 71 RR 18 BP 182/65 O2 Sat % 95 ED Reassessment (Disposition) - Reassessment Reassessment Condition:: Unchanged - Diagnosis Diagnosis:: diagnosis to be filled out on this chart by Dr. Allen. - Patient Disposition Condition at Disposition:: Stable, Unchanged
[2018-07-06] MEDS ORDERED: Haloperidol Lactate 5 mg/mL 1mL Vial IM ONE (20:17)
[2018-07-07] MEDS: D5-0.45NS 1,000 ML IV SCH (00:09)
[2018-07-07 00:50] VITALS: BP 156/84
[2018-07-07] MEDS ORDERED: Influenza Vaccine (65 yr & older) 0.5 ml Syr IM ONE (00:51)
[2018-07-07 07:01] LABS: % BASOPHILS 0.9 % (0.0-2.0); % EOSINOPHILS 6.2 % (0.0-5.0); % LYMPHOCYTES 18.5 % (20.0-50.0); % MONOCYTES 8.9 % (2.0-10.0); % NEUTROPHILS 65.5 % (40.0-80.0); BASOPHILE ABSOLUTE 0.1 Th/cumm (0-0.2); EOSINOPHILE ABSOLUTE 0.3 Th/cmm (0.1-0.4); HEMATOCRIT 35.9 % (41.0-60); HEMOGLOBIN 12.1 gm/dL (12-16); MEAN CELL VOLUME 87.3 fl (81-100); MEAN CORPUSCULAR HEMOGLOBIN 29.4 pg (27.0-31.0); MEAN CORPUSCULAR HGB CONC 33.7 pg (28.0-36.0); MEAN PLATELET VOLUME 8.1 fl; MONOCYTE ABSOLUTE 0.5 Th/cmm (0.3-1.0); NEUTROPHILE ABSOLUTE 3.7 Th/cmm (1.8-8.0); PLATELET COUNT 201 Th/cmm (150-400); RED BLOOD COUNT 4.11 Mil/cmm (3.80-5.20); RED CELL DISTRIBUTION WIDTH 12.4 % (11.5-20.0); WHITE BLOOD COUNT 5.6 Th/cmm (4.8-10.8)
[2018-07-07 07:19] LABS: ALB/GLOB RATIO 1.1 (1.0-1.8); ALBUMIN 3.3 gm/dL (3.7-5.3); ALKALINE PHOSPHATASE 66 U/L (34-104); ANION GAP 12.3 (7.0-16.0); BILIRUBIN,TOTAL 0.4 mg/dL (0.3-1.0); BUN - UREA NITROGEN 25 mg/dL (7-25); CARBON DIOXIDE 24.5 mEq/L (21.0-31.0); CHLORIDE 108 mEq/L (98-107); CREATININE - SERUM 0.7 mg/dL (0.6-1.2); GLUCOSE 89 mg/dL (70-105); POTASSIUM SERUM 3.8 mEq/L (3.5-5.1); SGOT 15 U/L (13-39); SGPT/ALT 12 U/L (7-52); SODIUM SERUM 141 mEq/L (136-145); TOTAL PROTEIN,SERUM 6.3 gm/dL (6.0-8.3)
[2018-07-07] MEDS ORDERED: Magnesium Hydroxide (MOM) 30 mL UDC PO PRN (09:19)
[2018-07-07] MEDS ORDERED: AL HYDROX PO PRN (09:19)
[2018-07-07] MEDS ORDERED: MAG HYDROX PO PRN (09:19)
[2018-07-07] MEDS ORDERED: SIMETH PO PRN (09:19)
[2018-07-07] MEDS ORDERED: Acetaminophen 500 MG TAB PO PRN (09:19)
[2018-07-07] MEDS ORDERED: [UNRECOGNIZED DRUG - OTHER] PO SCH (09:30)
[2018-07-07] MEDS ORDERED: CHOLECALCIFEROL 50000 UNIT PO SCH (09:30)
[2018-07-07] MEDS ORDERED: Non-Formulary Item 1 EA (Multivitamin [Multivitamins] 1 CAP) PO SCH (09:30)
[2018-07-07] MEDS ORDERED: PSYLLIUM HUSK 3.4 GM PO SCH (09:30)
[2018-07-07] MEDS ORDERED: Maalox 30 mL Cup PO PRN (09:35)
[2018-07-07] MEDS: Aspirin 81mg Chewable Tab PO SCH (09:58)
[2018-07-07] MEDS: Atorvastatin Calcium 10 MG TAB PO SCH (20:52)
--- NOTE | 2018-07-07 23:52 | Consultation ---
DATE OF CONSULTATION: 07/07/2018 IDENTIFYING INFORMATION: The patient is an 82-year-old female. CHIEF COMPLAINT: "I don't know." HISTORY OF PRESENT ILLNESS: The patient was admitted here because of agitation, dizziness, generalized weakness. The patient was a poor historian, diagnosed with UTI and weakness. The patient herself did not know why she was here, she said she needs to do some tests; however, she was smiling when I was talking to her, did not appear to be in any distress or depression. The patient also apparently was to altered level of consciousness. However, she was alert when I talked to her. She has been supposed to be on Lexapro [address] Wilson gave her Haldol once because apparently she was agitated upon admission. She also is on Namenda 10 mg twice a day because of psychosis, Seroquel 125 mg at bedtime. PAST PSYCHIATRIC HISTORY: Unclear, the patient does not believe she has been on any psychotic condition. She was in good mood when I talked to her, she denies prior suicide attempt; however, she is a poor historian, ____. PAST MEDICAL HISTORY AND ALLERGIES: No known drug allergy and admitted with altered level of consciousness, UTI, weakness. FAMILY AND SOCIAL HISTORY: The patient is unable to participate in meaningful conversation, hard of hearing. She denies family psychotic disorder. MENTAL STATUS EXAMINATION: The patient is appropriately dressed, not very well groomed. She was in bed. She was alert, unable to tell me her age. She says she was born in 1936 and ____ out, unable to tell me the date, where she is, why she is here. Long-term memory is poor, cannot tell me her age. Recent memory is poor, does not know exactly why she is here. She denies any auditory, hallucinations, or paranoia. Denies any intent to harm herself or anybody. She reported that she sleeps well, eats well. However, she is a poor historian. Insight and judgment is impaired. IMPRESSION: AXIS I: Major depression with psychosis, dementia. MEDICAL DIAGNOSES: As per medical doctor recommend to continue her medication. The patient needs follow up with the psychiatrist upon discharge. However, if she is agitated, may need to go to [facility]. Thank you very much for allowing me to participate in the care of this patient. BÁRBARA: 07/07/2018 13:43 JOB# [id number]
--- NOTE | 2018-07-08 09:58 | Diagnostic Imaging Report ---
Bilateral carotid Doppler ultrasound exam HISTORY: Stroke, CVA Sonographic sector images obtained through the carotid bifurcation regions bilaterally. Associated Doppler data obtained. The exam is is limited due to patient combativeness and motion. The exam of the right side demonstrates severe atherosclerotic plaque within the common carotid artery and carotid bulb region resulting in greater than 80% narrowing. Additional mild to moderate atherosclerotic changes seen through the right internal and external carotid artery regions. Elevated velocity noted within the internal carotid artery. Marked increase in velocity noted within the right external carotid artery. Mildly elevated velocity seen within the common carotid artery region on the right side. The ICA/CCA flow ratio equals 1.6. The left side also demonstrates severe atherosclerotic plaque particularly within the carotid bulb and internal carotid artery region resulting in greater than 80% narrowing. Elevated velocities noted through these areas. The ICA/CCA flow ratio equals 1.8. Antegrade vertebral artery flow. IMPRESSION: 1. Limited exam due to patient motion 2. Severe (greater than 80%) narrowing within the carotid bulb region on the right side. Severe narrowing within the left carotid bulb region and left internal carotid artery regions (greater than 80%). A CT angiographic study would provide additional detail. Radiology notified of the abnormal findings on 07/08/2018 (9:56 AM).
[2018-07-08] MEDS: Aspirin 81mg Chewable Tab PO SCH ×2 (10:06→12:14)
[2018-07-08] MEDS: Multivitamin Tab PO SCH (10:07)
--- NOTE | 2018-07-08 10:11 | Diagnostic Imaging Report ---
CT scan of the brain without intravenous contrast HISTORY: Stroke, CVA Total DLP equals 640 CTDI equals 37.2 Axial sections were obtained from the base of the skull to the vertex. There is enlargement of the ventricular system along with enlargement of cerebral sulci and subarachnoid cisterns reflecting cerebral atrophy. More pronounced dilatation of the left occipital horn is seen with volume loss. Adjacent hypodensity noted through the left occipital area. 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 No acute parenchymal abnormalities noted. No acute cerebral hemorrhage. Generalized hypodensity noted throughout the supratentorial white matter regions. The findings may be associated with chronic small vessel ischemic disease. No extra-axial masses or abnormal fluid collections. Atherosclerotic calcification seen in the region of the vertebral and basilar arteries at the base of the skull. IMPRESSION: 1. 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 Marked generalized cerebral atrophy 3. Extensive supratentorial white matter changes. The findings may be associated with chronic small vessel ischemic disease 4. Atherosclerotic vascular changes 5. No definite acute abnormalities
[2018-07-08] MEDS: Enoxaparin 40 mg/0.4 mL 0.4mL Syr SUBQ SCH (12:15)
--- NOTE | 2018-07-08 13:49 | General Progress Note ---
Subjective - Review of Systems Service Date: 07/08/18 Objective - Results Result Diagrams: 07/07/18 06:19 07/07/18 06:19 Recent Labs: Laboratory Last Values WBC 5.6 Th/cmm (4.8-10.8) 07/07/18 06:19 RBC 4.11 Mil/cmm (3.80-5.20) 07/07/18 06:19 Hgb 12.1 gm/dL (12-16) 07/07/18 06:19 Hct 35.9 % (41.0-60) L 07/07/18 06:19 MCV 87.3 fl (81-100) 07/07/18 06:19 MCH 29.4 pg (27.0-31.0) 07/07/18 06:19 MCHC Differential 33.7 pg (28.0-36.0) 07/07/18 06:19 RDW 12.4 % (11.5-20.0) 07/07/18 06:19 Plt Count 201 Th/cmm (150-400) 07/07/18 06:19 MPV 8.1 fl 07/07/18 06:19 Neutrophils % 65.5 % (40.0-80.0) 07/07/18 06:19 Lymphocytes % 18.5 % (20.0-50.0) L 07/07/18 06:19 Monocytes % 8.9 % (2.0-10.0) 07/07/18 06:19 Eosinophils % 6.2 % (0.0-5.0) H 07/07/18 06:19 Basophils % 0.9 % (0.0-2.0) 07/07/18 06:19 Sodium 141 mEq/L (136-145) 07/07/18 06:19 Potassium 3.8 mEq/L (3.5-5.1) 07/07/18 06:19 Chloride 108 mEq/L (98-107) H 07/07/18 06:19 Carbon Dioxide 24.5 mEq/L (21.0-31.0) 07/07/18 06:19 Anion Gap 12.3 (7.0-16.0) 07/07/18 06:19 BUN 25 mg/dL (7-25) 07/07/18 06:19 Creatinine 0.7 mg/dL (0.6-1.2) 07/07/18 06:19 Est GFR ( Amer) TNP 07/07/18 06:19 Est GFR (Non-Af Amer) TNP 07/07/18 06:19 BUN/Creatinine Ratio 35.7 07/07/18 06:19 Glucose 89 mg/dL (70-105) 07/07/18 06:19 Calcium 9.0 mg/dL (8.6-10.3) 07/07/18 06:19 Phosphorus 3.2 mg/dL (2.5-5.0) 07/06/18 16:04 Magnesium 2.0 mg/dL (1.9-2.7) 07/06/18 16:04 Total Bilirubin 0.4 mg/dL (0.3-1.0) 07/07/18 06:19 AST 15 U/L (13-39) 07/07/18 06:19 ALT 12 U/L (7-52) 07/07/18 06:19 Alkaline Phosphatase 66 U/L (34-104) 07/07/18 06:19 Total Protein 6.3 gm/dL (6.0-8.3) 07/07/18 06:19 Albumin 3.3 gm/dL (3.7-5.3) L 07/07/18 06:19 Globulin 3.0 gm/dL 07/07/18 06:19 Albumin/Globulin Ratio 1.1 (1.0-1.8) 07/07/18 06:19 TSH 3.66 uIU/ml (0.34-5.60) 07/07/18 06:19 Urine Source CLEAN C 07/06/18 16:10 Urine Color YELLOW 07/06/18 16:10 Urine Clarity CLEAR (CLEAR) 07/06/18 16:10 Urine pH 6.0 (4.6 - 8.0) 07/06/18 16:10 Ur Specific [place] 1.025 (1.005-1.030) 07/06/18 16:10 Urine Protein TRACE mg/dL (NEGATIVE) 07/06/18 16:10 Urine Glucose (UA) NEGATIVE mg/dL (NEGATIVE) 07/06/18 16:10 Urine Ketones NEGATIVE mg/dL (NEGATIVE) 07/06/18 16:10 Urine Blood TRACE (NEGATIVE) 07/06/18 16:10 Urine Nitrate NEGATIVE (NEGATIVE) 07/06/18 16:10 Urine Bilirubin NEGATIVE (NEGATIVE) 07/06/18 16:10 Urine Urobilinogen 0.2 E.U./dL (0.2 - 1.0) 07/06/18 16:10 Ur Leukocyte Esterase NEGATIVE (NEGATIVE) 07/06/18 16:10 Urine RBC 2-5 /hpf (0-5) 07/06/18 16:10 Urine WBC 0-2 /hpf (0-5) 07/06/18 16:10 Ur Epithelial Cells FEW /lpf (FEW) 07/06/18 16:10 Urine Bacteria FEW /hpf (NONE SEEN) 07/06/18 16:10 Urine Mucus FEW /lpf (FEW) 07/06/18 16:10 - Physical Exam Vitals and I&O: Vital Signs Temp 97.9 F 07/08/18 04:00 Pulse 73 07/08/18 04:00 Resp 18 07/08/18 08:00 BP 182/90 07/08/18 04:00 Pulse Ox 97 07/08/18 04:00 Intake & Output 07/07/18 07/08/18 07/08/18 18:59 06:59 18:59 Intake Total 700 120 Balance 700 120 Weight (lbs) 76.657 kg 81.193 kg Intake: Oral 700 120 Other: # Voids 3 3 # Bowel Movements 1 Weight Source Bedscale Bedscale Active Medications: Current Medications Acetaminophen (Tylenol) 650 mg PO Q4HR PRN PRN Reason: Fever > 101 OR MILD PAIN Stop: 09/05/18 09:25 Al Hydrox/Mg Hydrox/Simethicone (Maalox) 30 ml PO Q4HR PRN PRN Reason: GI DISTRESS Stop: 09/05/18 09:34 Aspirin (Aspirin Chewable) 81 mg PO DAILY [facility] Stop: 09/05/18 09:29 Last Admin: 07/08/18 12:14 Dose: 81 mg Atorvastatin Calcium (Lipitor) 10 mg PO HS [facility]; Protocol Stop: 09/05/18 20:59 Last Admin: 07/07/18 20:52 Dose: 10 mg Calcium Carbonate (Os-Vern) 500 mg PO DAILY [facility] Stop: 09/05/18 09:29 Last Admin: 07/08/18 10:06 Dose: Not Given Citalopram Hydrobromide (Celexa) 20 mg PO HS [facility]; Protocol Stop: 09/05/18 20:59 Docusate Sodium (Colace) 250 mg PO DAILY [facility] Stop: 09/05/18 09:29 Last Admin: 07/08/18 10:07 Dose: Not Given Enoxaparin Sodium (Lovenox) 40 mg SUBQ Q12H [facility] Stop: 09/06/18 12:14 Last Admin: 07/08/18 12:15 Dose: 40 mg Ergocalciferol (Vitamin D2) 50,000 iu PO QSUN [facility] Stop: 09/06/18 08:59 Last Admin: 07/08/18 10:07 Dose: Not Given Dextrose/Sodium Chloride (D5-0.45ns) 1,000 mls @ 50 mls/hr IV .Q20H [facility] Stop: 09/04/18 23:29 Last Admin: 07/07/18 00:09 Dose: 50 mls/hr Lorazepam (Ativan) 1 mg IVP Q4HR PRN; Protocol PRN Reason: Agitation Stop: 09/05/18 18:12 Magnesium Hydroxide (Milk Of Magnesia) 30 ml PO HS PRN PRN Reason: Constipation Stop: 09/05/18 09:18 Memantine (Namenda) 10 mg PO BID [facility] Stop: 09/05/18 09:29 Last Admin: 07/08/18 12:15 Dose: 10 mg Multivitamins/Vitamin C (Theragran) 1 tab PO DAILY [facility] Stop: 09/06/18 08:59 Last Admin: 07/08/18 10:07 Dose: Not Given Quetiapine Fumarate (Seroquel) 25 mg PO HS [facility]; Protocol Stop: 09/05/18 20:59 - Procedures Procedures: Procedures Procedure Code Date GROUP PSYCHOTHERAPY [id number] 11/25/16 Assessment/Plan - Problem List Patient Problems: All Active Problems DYSURIA WITH FEVER AND WEAKNESS (Acute)
[2018-07-08] MEDS: D5-0.45NS 1,000 ML IV SCH (16:18)
--- NOTE | 2018-07-08 21:27 | Progress Notes ---
DATE: 07/08/2018 FOLLOWUP CONSULT NOTE SUBJECTIVE: Case was discussed with staff of the patient, reviewed records. The patient is demented and confused. She continues to be unable to make safe plan for self-care. She continues to be inappropriate. She is a poor historian, unable to tell me her age, date, where she is, and why she is here; however, she seems to be a little bit calmer today. She has been compliant with the medication with no side effects, no sedation, no nausea, and no extrapyramidal symptoms. She is on Celexa 20 mg at bedtime, Namenda 10 mg twice a day, and Seroquel 25 mg at bedtime with no side effects. The patient needs follow up with the psychiatrist upon discharge. Thank you very much for allowing me to participate in the care of this most interesting lady. JOB# [id number]
[2018-07-08] MEDS: Atorvastatin Calcium 10 MG TAB PO SCH (21:35)
[2018-07-09] MEDS: Enoxaparin 40 mg/0.4 mL 0.4mL Syr SUBQ SCH ×2 (02:00→19:22)
--- NOTE | 2018-07-09 08:36 | General Progress Note ---
Subjective - Review of Systems Service Date: 07/09/18 Events since last encounter: only information available is from chart, patient unable to give good history has severe stenosis bilateral carotids BUN/creatinine ok for CTA awaiting consent from conservator to proceed Objective - Results Result Diagrams: 07/07/18 06:19 07/07/18 06:19 Recent Labs: Laboratory Last Values WBC 5.6 Th/cmm (4.8-10.8) 07/07/18 06:19 RBC 4.11 Mil/cmm (3.80-5.20) 07/07/18 06:19 Hgb 12.1 gm/dL (12-16) 07/07/18 06:19 Hct 35.9 % (41.0-60) L 07/07/18 06:19 MCV 87.3 fl (81-100) 07/07/18 06:19 MCH 29.4 pg (27.0-31.0) 07/07/18 06:19 MCHC Differential 33.7 pg (28.0-36.0) 07/07/18 06:19 RDW 12.4 % (11.5-20.0) 07/07/18 06:19 Plt Count 201 Th/cmm (150-400) 07/07/18 06:19 MPV 8.1 fl 07/07/18 06:19 Neutrophils % 65.5 % (40.0-80.0) 07/07/18 06:19 Lymphocytes % 18.5 % (20.0-50.0) L 07/07/18 06:19 Monocytes % 8.9 % (2.0-10.0) 07/07/18 06:19 Eosinophils % 6.2 % (0.0-5.0) H 07/07/18 06:19 Basophils % 0.9 % (0.0-2.0) 07/07/18 06:19 Sodium 141 mEq/L (136-145) 07/07/18 06:19 Potassium 3.8 mEq/L (3.5-5.1) 07/07/18 06:19 Chloride 108 mEq/L (98-107) H 07/07/18 06:19 Carbon Dioxide 24.5 mEq/L (21.0-31.0) 07/07/18 06:19 Anion Gap 12.3 (7.0-16.0) 07/07/18 06:19 BUN 25 mg/dL (7-25) 07/07/18 06:19 Creatinine 0.7 mg/dL (0.6-1.2) 07/07/18 06:19 Est GFR ( Amer) TNP 07/07/18 06:19 Est GFR (Non-Af Amer) TNP 07/07/18 06:19 BUN/Creatinine Ratio 35.7 07/07/18 06:19 Glucose 89 mg/dL (70-105) 07/07/18 06:19 Calcium 9.0 mg/dL (8.6-10.3) 07/07/18 06:19 Phosphorus 3.2 mg/dL (2.5-5.0) 07/06/18 16:04 Magnesium 2.0 mg/dL (1.9-2.7) 07/06/18 16:04 Total Bilirubin 0.4 mg/dL (0.3-1.0) 07/07/18 06:19 AST 15 U/L (13-39) 07/07/18 06:19 ALT 12 U/L (7-52) 07/07/18 06:19 Alkaline Phosphatase 66 U/L (34-104) 07/07/18 06:19 Total Protein 6.3 gm/dL (6.0-8.3) 07/07/18 06:19 Albumin 3.3 gm/dL (3.7-5.3) L 07/07/18 06:19 Globulin 3.0 gm/dL 07/07/18 06:19 Albumin/Globulin Ratio 1.1 (1.0-1.8) 07/07/18 06:19 TSH 3.66 uIU/ml (0.34-5.60) 07/07/18 06:19 Urine Source CLEAN C 07/06/18 16:10 Urine Color YELLOW 07/06/18 16:10 Urine Clarity CLEAR (CLEAR) 07/06/18 16:10 Urine pH 6.0 (4.6 - 8.0) 07/06/18 16:10 Ur Specific [place] 1.025 (1.005-1.030) 07/06/18 16:10 Urine Protein TRACE mg/dL (NEGATIVE) 07/06/18 16:10 Urine Glucose (UA) NEGATIVE mg/dL (NEGATIVE) 07/06/18 16:10 Urine Ketones NEGATIVE mg/dL (NEGATIVE) 07/06/18 16:10 Urine Blood TRACE (NEGATIVE) 07/06/18 16:10 Urine Nitrate NEGATIVE (NEGATIVE) 07/06/18 16:10 Urine Bilirubin NEGATIVE (NEGATIVE) 07/06/18 16:10 Urine Urobilinogen 0.2 E.U./dL (0.2 - 1.0) 07/06/18 16:10 Ur Leukocyte Esterase NEGATIVE (NEGATIVE) 07/06/18 16:10 Urine RBC 2-5 /hpf (0-5) 07/06/18 16:10 Urine WBC 0-2 /hpf (0-5) 07/06/18 16:10 Ur Epithelial Cells FEW /lpf (FEW) 07/06/18 16:10 Urine Bacteria FEW /hpf (NONE SEEN) 07/06/18 16:10 Urine Mucus FEW /lpf (FEW) 07/06/18 16:10 - Physical Exam Vitals and I&O: Vital Signs Temp 97.9 F 07/09/18 00:00 Pulse 83 07/09/18 00:00 Resp 18 07/09/18 00:00 BP 160/70 07/09/18 00:00 Pulse Ox 94 07/09/18 00:00 Intake & Output 07/08/18 07/09/18 07/09/18 18:59 06:59 18:59 Intake Total 750 250 Balance 750 250 Weight (lbs) 81.193 kg 81.193 kg Intake: Oral 750 250 Other: # Voids 4 2 Weight Source Bedscale Bedscale Active Medications: Current Medications Acetaminophen (Tylenol) 650 mg PO Q4HR PRN PRN Reason: Fever > 101 OR MILD PAIN Stop: 09/05/18 09:25 Al Hydrox/Mg Hydrox/Simethicone (Maalox) 30 ml PO Q4HR PRN PRN Reason: GI DISTRESS Stop: 09/05/18 09:34 Aspirin (Aspirin Chewable) 81 mg PO DAILY [facility] Stop: 09/05/18 09:29 Last Admin: 07/08/18 12:14 Dose: 81 mg Atorvastatin Calcium (Lipitor) 10 mg PO HS [facility]; Protocol Stop: 09/05/18 20:59 Last Admin: 07/08/18 21:35 Dose: 10 mg Calcium Carbonate (Os-Vern) 500 mg PO DAILY [facility] Stop: 09/05/18 09:29 Last Admin: 07/08/18 10:06 Dose: Not Given Citalopram Hydrobromide (Celexa) 20 mg PO [facility]; Protocol Stop: 09/05/18 20:59 Last Admin: 07/08/18 21:35 Dose: 20 mg Docusate Sodium (Colace) 250 mg PO DAILY [facility] Stop: 09/05/18 09:29 Last Admin: 07/08/18 10:07 Dose: Not Given Enoxaparin Sodium (Lovenox) 40 mg SUBQ Q12H [facility] Stop: 09/06/18 12:14 Last Admin: 07/09/18 02:00 Dose: Not Given Ergocalciferol (Vitamin D2) 50,000 iu PO QSUN [facility] Stop: 09/06/18 08:59 Last Admin: 07/08/18 10:07 Dose: Not Given Dextrose/Sodium Chloride (D5-0.45ns) 1,000 mls @ 50 mls/hr IV .Q20H [facility] Stop: 09/04/18 23:29 Last Admin: 07/08/18 16:18 Dose: 50 mls/hr Lorazepam (Ativan) 1 mg IVP Q4HR PRN; Protocol PRN Reason: Agitation Stop: 09/05/18 18:12 Last Admin: 07/08/18 14:54 Dose: 1 mg Magnesium Hydroxide (Milk Of Magnesia) 30 ml PO HS PRN PRN Reason: Constipation Stop: 09/05/18 09:18 Memantine (Namenda) 10 mg PO BID [facility] Stop: 09/05/18 09:29 Last Admin: 07/08/18 16:18 Dose: 10 mg Multivitamins/Vitamin C (Theragran) 1 tab PO DAILY [facility] Stop: 09/06/18 08:59 Last Admin: 07/08/18 10:07 Dose: Not Given Mupirocin (Bactroban Oint) 1 appl NS BID [facility] Stop: 07/13/18 09:01 Last Admin: 07/08/18 16:18 Dose: 1 appl Quetiapine Fumarate (Seroquel) 25 mg PO HS [facility]; Protocol Stop: 09/05/18 20:59 Last Admin: 07/08/18 21:35 Dose: 25 mg - Procedures Procedures: Procedures Procedure Code Date GROUP PSYCHOTHERAPY GZHZZZZ 11/25/16 Assessment/Plan - Problem List Patient Problems: All Active Problems DYSURIA WITH FEVER AND WEAKNESS (Acute)
[2018-07-09] MEDS: Multivitamin Tab PO SCH (10:22)
[2018-07-09] MEDS: Aspirin 81mg Chewable Tab PO SCH (10:23)
--- NOTE | 2018-07-09 10:36 | Internal Medicine Prog Note ---
Internal Medicine Subjective - Subjective Patient seen and examined:: chart reviewed Patient is:: awake, confused, other (patient is weak) Internal Medicine Objective - Results Result Diagrams: 07/07/18 06:19 07/07/18 06:19 Recent Labs: Laboratory Last Values WBC 5.6 Th/cmm (4.8-10.8) 07/07/18 06:19 RBC 4.11 Mil/cmm (3.80-5.20) 07/07/18 06:19 Hgb 12.1 gm/dL (12-16) 07/07/18 06:19 Hct 35.9 % (41.0-60) L 07/07/18 06:19 MCV 87.3 fl (81-100) 07/07/18 06:19 MCH 29.4 pg (27.0-31.0) 07/07/18 06:19 MCHC Differential 33.7 pg (28.0-36.0) 07/07/18 06:19 RDW 12.4 % (11.5-20.0) 07/07/18 06:19 Plt Count 201 Th/cmm (150-400) 07/07/18 06:19 MPV 8.1 fl 07/07/18 06:19 Neutrophils % 65.5 % (40.0-80.0) 07/07/18 06:19 Lymphocytes % 18.5 % (20.0-50.0) L 07/07/18 06:19 Monocytes % 8.9 % (2.0-10.0) 07/07/18 06:19 Eosinophils % 6.2 % (0.0-5.0) H 07/07/18 06:19 Basophils % 0.9 % (0.0-2.0) 07/07/18 06:19 Sodium 141 mEq/L (136-145) 07/07/18 06:19 Potassium 3.8 mEq/L (3.5-5.1) 07/07/18 06:19 Chloride 108 mEq/L (98-107) H 07/07/18 06:19 Carbon Dioxide 24.5 mEq/L (21.0-31.0) 07/07/18 06:19 Anion Gap 12.3 (7.0-16.0) 07/07/18 06:19 BUN 25 mg/dL (7-25) 07/07/18 06:19 Creatinine 0.7 mg/dL (0.6-1.2) 07/07/18 06:19 Est GFR ( Amer) TNP 07/07/18 06:19 Est GFR (Non-Af Amer) TNP 07/07/18 06:19 BUN/Creatinine Ratio 35.7 07/07/18 06:19 Glucose 89 mg/dL (70-105) 07/07/18 06:19 Calcium 9.0 mg/dL (8.6-10.3) 07/07/18 06:19 Phosphorus 3.2 mg/dL (2.5-5.0) 07/06/18 16:04 Magnesium 2.0 mg/dL (1.9-2.7) 07/06/18 16:04 Total Bilirubin 0.4 mg/dL (0.3-1.0) 07/07/18 06:19 AST 15 U/L (13-39) 07/07/18 06:19 ALT 12 U/L (7-52) 07/07/18 06:19 Alkaline Phosphatase 66 U/L (34-104) 07/07/18 06:19 Total Protein 6.3 gm/dL (6.0-8.3) 07/07/18 06:19 Albumin 3.3 gm/dL (3.7-5.3) L 07/07/18 06:19 Globulin 3.0 gm/dL 07/07/18 06:19 Albumin/Globulin Ratio 1.1 (1.0-1.8) 07/07/18 06:19 TSH 3.66 uIU/ml (0.34-5.60) 07/07/18 06:19 Urine Source CLEAN C 07/06/18 16:10 Urine Color YELLOW 07/06/18 16:10 Urine Clarity CLEAR (CLEAR) 07/06/18 16:10 Urine pH 6.0 (4.6 - 8.0) 07/06/18 16:10 Ur Specific [place] 1.025 (1.005-1.030) 07/06/18 16:10 Urine Protein TRACE mg/dL (NEGATIVE) 07/06/18 16:10 Urine Glucose (UA) NEGATIVE mg/dL (NEGATIVE) 07/06/18 16:10 Urine Ketones NEGATIVE mg/dL (NEGATIVE) 07/06/18 16:10 Urine Blood TRACE (NEGATIVE) 07/06/18 16:10 Urine Nitrate NEGATIVE (NEGATIVE) 07/06/18 16:10 Urine Bilirubin NEGATIVE (NEGATIVE) 07/06/18 16:10 Urine Urobilinogen 0.2 E.U./dL (0.2 - 1.0) 07/06/18 16:10 Ur Leukocyte Esterase NEGATIVE (NEGATIVE) 07/06/18 16:10 Urine RBC 2-5 /hpf (0-5) 07/06/18 16:10 Urine WBC 0-2 /hpf (0-5) 07/06/18 16:10 Ur Epithelial Cells FEW /lpf (FEW) 07/06/18 16:10 Urine Bacteria FEW /hpf (NONE SEEN) 07/06/18 16:10 Urine Mucus FEW /lpf (FEW) 07/06/18 16:10 - Physical Exam Vitals and I&O: Vital Signs Temp 97.6 F 07/09/18 08:00 Pulse 72 07/09/18 08:00 Resp 18 07/09/18 08:00 BP 162/81 07/09/18 08:00 Pulse Ox 96 07/09/18 08:00 Intake & Output 07/08/18 07/09/18 07/09/18 18:59 06:59 18:59 Intake Total 750 250 Balance 750 250 Weight (lbs) 81.193 kg 81.193 kg Intake: Oral 750 250 Other: # Voids 4 2 Weight Source Bedscale Bedscale Active Medications: Current Medications Acetaminophen (Tylenol) 650 mg PO Q4HR PRN PRN Reason: Fever > 101 OR MILD PAIN Stop: 09/05/18 09:25 Al Hydrox/Mg Hydrox/Simethicone (Maalox) 30 ml PO Q4HR PRN PRN Reason: GI DISTRESS Stop: 09/05/18 09:34 Aspirin (Aspirin Chewable) 81 mg PO DAILY [facility] Stop: 09/05/18 09:29 Last Admin: 07/09/18 10:23 Dose: Not Given Atorvastatin Calcium (Lipitor) 10 mg PO HS [facility]; Protocol Stop: 09/05/18 20:59 Last Admin: 07/08/18 21:35 Dose: 10 mg Calcium Carbonate (Os-Vern) 500 mg PO DAILY [facility] Stop: 09/05/18 09:29 Last Admin: 07/09/18 10:22 Dose: Not Given Citalopram Hydrobromide (Celexa) 20 mg PO HS [facility]; Protocol Stop: 09/05/18 20:59 Last Admin: 07/08/18 21:35 Dose: 20 mg Docusate Sodium (Colace) 250 mg PO DAILY [facility] Stop: 09/05/18 09:29 Last Admin: 07/09/18 10:22 Dose: Not Given Enoxaparin Sodium (Lovenox) 40 mg SUBQ Q12H [facility] Stop: 09/06/18 12:14 Last Admin: 07/09/18 02:00 Dose: Not Given Ergocalciferol (Vitamin D2) 50,000 iu PO QSUN [facility] Stop: 09/06/18 08:59 Last Admin: 07/08/18 10:07 Dose: Not Given Dextrose/Sodium Chloride (D5-0.45ns) 1,000 mls @ 50 mls/hr IV .Q20H [facility] Stop: 09/04/18 23:29 Last Admin: 07/08/18 16:18 Dose: 50 mls/hr Lorazepam (Ativan) 1 mg IVP Q4HR PRN; Protocol PRN Reason: Agitation Stop: 09/05/18 18:12 Last Admin: 07/08/18 14:54 Dose: 1 mg Magnesium Hydroxide (Milk Of Magnesia) 30 ml PO HS PRN PRN Reason: Constipation Stop: 09/05/18 09:18 Memantine (Namenda) 10 mg PO BID [facility] Stop: 09/05/18 09:29 Last Admin: 07/09/18 10:22 Dose: Not Given Multivitamins/Vitamin C (Theragran) 1 tab PO DAILY [facility] Stop: 09/06/18 08:59 Last Admin: 07/09/18 10:22 Dose: Not Given Mupirocin (Bactroban Oint) 1 appl NS BID [facility] Stop: 07/13/18 09:01 Last Admin: 07/09/18 10:23 Dose: 1 appl Quetiapine Fumarate (Seroquel) 25 mg PO HS [facility]; Protocol Stop: 09/05/18 20:59 Last Admin: 07/08/18 21:35 Dose: 25 mg General: weak HEENT: NC/AT Neck: Supple Lungs: CTAB Cardiovascular: Normal S1, Normal S2 Abdomen: soft Extremities: clear Neurological: muscle weakness - Procedures Procedures: Procedures Procedure Code Date GROUP PSYCHOTHERAPY GZHZZZZ 11/25/16 Internal Medicine Assmt/Plan - Assessment Assessment: dysuria fever gen weakness acute - Plan Plan: as per order sheet
--- NOTE | 2018-07-09 10:49 | History & Physical ---
ADMIT DATE: 07/07/2018 HISTORY OF PRESENT ILLNESS: This patient was admitted on 07/06/2018. The patient essentially came in for severe weakness, dizziness, history of fall, history of dementia, history of hypertension, also possible urinary infection. The patient was seen in the Emergency Room, was admitted. REVIEW OF SYSTEMS: Basically complains of dizziness, history of fall and history of severe weakness and slight shortness of breath, no chest pain, and no abdominal pain. System review is otherwise negative. PAST MEDICAL HISTORY: As noted above. The patient has a history of psychosis. PHYSICAL EXAMINATION: GENERAL: The patient is alert, oriented female. VITAL SIGNS: As noted in chart. HEENT: Head: Normal. ENT: Normal. NECK: Supple, nontender. LUNGS: Bilateral rales. CARDIOVASCULAR SYSTEM: S1, S2 heard. ABDOMEN: Soft. Bowel sounds are heard. CENTRAL NERVOUS SYSTEM: Decreased sensorium. Confusion. DIAGNOSES: History of fall, rule out transient ischemic attack, severe weakness, history of psychosis, hypertension, hyperlipidemia, dementia, transient ischemic attack. PLAN: The patient is being admitted and I am going to go ahead and do the neurological workup including carotid artery ultrasound and CAT scan of the head and also Neurology consultation and I will follow along. JOB# [id number]
--- NOTE | 2018-07-09 10:57 | General Progress Note ---
Subjective - Review of Systems Service Date: 07/09/18 Events since last encounter: consent discussed with instrument maintenance supervisor in absence of conservator to proceed with carotid surgery pending CTA results today Objective - Results Result Diagrams: 07/07/18 06:19 07/07/18 06:19 Recent Labs: Laboratory Last Values WBC 5.6 Th/cmm (4.8-10.8) 07/07/18 06:19 RBC 4.11 Mil/cmm (3.80-5.20) 07/07/18 06:19 Hgb 12.1 gm/dL (12-16) 07/07/18 06:19 Hct 35.9 % (41.0-60) L 07/07/18 06:19 MCV 87.3 fl (81-100) 07/07/18 06:19 MCH 29.4 pg (27.0-31.0) 07/07/18 06:19 MCHC Differential 33.7 pg (28.0-36.0) 07/07/18 06:19 RDW 12.4 % (11.5-20.0) 07/07/18 06:19 Plt Count 201 Th/cmm (150-400) 07/07/18 06:19 MPV 8.1 fl 07/07/18 06:19 Neutrophils % 65.5 % (40.0-80.0) 07/07/18 06:19 Lymphocytes % 18.5 % (20.0-50.0) L 07/07/18 06:19 Monocytes % 8.9 % (2.0-10.0) 07/07/18 06:19 Eosinophils % 6.2 % (0.0-5.0) H 07/07/18 06:19 Basophils % 0.9 % (0.0-2.0) 07/07/18 06:19 Sodium 141 mEq/L (136-145) 07/07/18 06:19 Potassium 3.8 mEq/L (3.5-5.1) 07/07/18 06:19 Chloride 108 mEq/L (98-107) H 07/07/18 06:19 Carbon Dioxide 24.5 mEq/L (21.0-31.0) 07/07/18 06:19 Anion Gap 12.3 (7.0-16.0) 11/17/18 06:19 BUN 25 mg/dL (7-25) 07/07/18 06:19 Creatinine 0.7 mg/dL (0.6-1.2) 07/07/18 06:19 Est GFR ( Amer) TNP 07/07/18 06:19 Est GFR (Non-Af Amer) TNP 07/07/18 06:19 BUN/Creatinine Ratio 35.7 07/07/18 06:19 Glucose 89 mg/dL (70-105) 07/07/18 06:19 Calcium 9.0 mg/dL (8.6-10.3) 07/07/18 06:19 Phosphorus 3.2 mg/dL (2.5-5.0) 07/06/18 16:04 Magnesium 2.0 mg/dL (1.9-2.7) 07/06/18 16:04 Total Bilirubin 0.4 mg/dL (0.3-1.0) 07/07/18 06:19 AST 15 U/L (13-39) 07/07/18 06:19 ALT 12 U/L (7-52) 07/07/18 06:19 Alkaline Phosphatase 66 U/L (34-104) 07/07/18 06:19 Total Protein 6.3 gm/dL (6.0-8.3) 07/07/18 06:19 Albumin 3.3 gm/dL (3.7-5.3) L 07/07/18 06:19 Globulin 3.0 gm/dL 07/07/18 06:19 Albumin/Globulin Ratio 1.1 (1.0-1.8) 07/07/18 06:19 TSH 3.66 uIU/ml (0.34-5.60) 07/07/18 06:19 Urine Source CLEAN C 07/06/18 16:10 Urine Color YELLOW 07/06/18 16:10 Urine Clarity CLEAR (CLEAR) 07/06/18 16:10 Urine pH 6.0 (4.6 - 8.0) 07/06/18 16:10 Ur Specific [place] 1.025 (1.005-1.030) 07/06/18 16:10 Urine Protein TRACE mg/dL (NEGATIVE) 07/06/18 16:10 Urine Glucose (UA) NEGATIVE mg/dL (NEGATIVE) 07/06/18 16:10 Urine Ketones NEGATIVE mg/dL (NEGATIVE) 07/06/18 16:10 Urine Blood TRACE (NEGATIVE) 07/06/18 16:10 Urine Nitrate NEGATIVE (NEGATIVE) 07/06/18 16:10 Urine Bilirubin NEGATIVE (NEGATIVE) 07/06/18 16:10 Urine Urobilinogen 0.2 E.U./dL (0.2 - 1.0) 07/06/18 16:10 Ur Leukocyte Esterase NEGATIVE (NEGATIVE) 07/06/18 16:10 Urine RBC 2-5 /hpf (0-5) 07/06/18 16:10 Urine WBC 0-2 /hpf (0-5) 07/06/18 16:10 Ur Epithelial Cells FEW /lpf (FEW) 07/06/18 16:10 Urine Bacteria FEW /hpf (NONE SEEN) 07/06/18 16:10 Urine Mucus FEW /lpf (FEW) 07/06/18 16:10 - Physical Exam Vitals and I&O: Vital Signs Temp 97.6 F 07/09/18 08:00 Pulse 72 07/09/18 08:00 Resp 18 07/09/18 08:00 BP 162/81 07/09/18 08:00 Pulse Ox 96 07/09/18 08:00 Intake & Output 07/08/18 07/09/18 07/09/18 18:59 06:59 18:59 Intake Total 750 250 Balance 750 250 Weight (lbs) 81.193 kg 81.193 kg Intake: Oral 750 250 Other: # Voids 4 2 Weight Source Bedscale Bedscale Active Medications: Current Medications Acetaminophen (Tylenol) 650 mg PO Q4HR PRN PRN Reason: Fever > 101 OR MILD PAIN Stop: 09/05/18 09:25 Al Hydrox/Mg Hydrox/Simethicone (Maalox) 30 ml PO Q4HR PRN PRN Reason: GI DISTRESS Stop: 09/05/18 09:34 Aspirin (Aspirin Chewable) 81 mg PO DAILY [facility] Stop: 09/05/18 09:29 Last Admin: 07/09/18 10:23 Dose: Not Given Atorvastatin Calcium (Lipitor) 10 mg PO HS [facility]; Protocol Stop: 09/05/18 20:59 Last Admin: 07/08/18 21:35 Dose: 10 mg Calcium Carbonate (Os-Vern) 500 mg PO DAILY [facility] Stop: 09/05/18 09:29 Last Admin: 07/09/18 10:22 Dose: Not Given Citalopram Hydrobromide (Celexa) 20 mg PO HS [facility]; Protocol Stop: 09/05/18 20:59 Last Admin: 07/08/18 21:35 Dose: 20 mg Docusate Sodium (Colace) 250 mg PO DAILY [facility] Stop: 09/05/18 09:29 Last Admin: 07/09/18 10:22 Dose: Not Given Enoxaparin Sodium (Lovenox) 40 mg SUBQ Q12H [facility] Stop: 09/06/18 12:14 Last Admin: 07/09/18 02:00 Dose: Not Given Ergocalciferol (Vitamin D2) 50,000 iu PO QSUN [facility] Stop: 09/06/18 08:59 Last Admin: 07/08/18 10:07 Dose: Not Given Dextrose/Sodium Chloride (D5-0.45ns) 1,000 mls @ 50 mls/hr IV .Q20H [facility] Stop: 09/04/18 23:29 Last Admin: 07/08/18 16:18 Dose: 50 mls/hr Lorazepam (Ativan) 1 mg IVP Q4HR PRN; Protocol PRN Reason: Agitation Stop: 09/05/18 18:12 Last Admin: 07/08/18 14:54 Dose: 1 mg Magnesium Hydroxide (Milk Of Magnesia) 30 ml PO HS PRN PRN Reason: Constipation Stop: 09/05/18 09:18 Memantine (Namenda) 10 mg PO BID [facility] Stop: 09/05/18 09:29 Last Admin: 07/09/18 10:22 Dose: Not Given Multivitamins/Vitamin C (Theragran) 1 tab PO DAILY [facility] Stop: 09/06/18 08:59 Last Admin: 07/09/18 10:22 Dose: Not Given Mupirocin (Bactroban Oint) 1 appl NS BID [facility] Stop: 07/13/18 09:01 Last Admin: 07/09/18 10:23 Dose: 1 appl Quetiapine Fumarate (Seroquel) 25 mg PO HS [facility]; Protocol Stop: 09/05/18 20:59 Last Admin: 07/08/18 21:35 Dose: 25 mg - Procedures Procedures: Procedures Procedure Code Date GROUP PSYCHOTHERAPY GZHZZZZ 04/07/17 Assessment/Plan - Problem List Patient Problems: All Active Problems DYSURIA WITH FEVER AND WEAKNESS (Acute)
[2018-07-09] MEDS ORDERED: IOHEXOL 350mgI/mL 150mL IV ONE (11:17)
[2018-07-09] MEDS ORDERED: IOHEXOL 350mgI/mL 100mL Bottle IVP ONE (14:13)
[2018-07-09] MEDS ORDERED: Haloperidol Lactate 5 mg/mL 1mL Vial IM ONE (16:35)
[2018-07-09] MEDS ORDERED: Haloperidol Lactate 5 mg/mL 1mL Vial ONE (16:38)
[2018-07-09] MEDS: Atorvastatin Calcium 10 MG TAB PO SCH (21:36)
--- NOTE | 2018-07-09 22:58 | Consultation ---
DATE OF CONSULTATION: 07/09/2018 NEUROLOGY CONSULT The patient is an 82-year-old. The patient admitted with complaints of feeling weak. Did notice that the patient was somewhat unsteady. Limping. In addition, the patient complained of urinary incontinence. Also, increased dysuria. The patient at the moment is awake and alert, will answer questions. PAST MEDICAL HISTORY: 1. Anxiety disorder. 2. Hyperlipidemia. 3. Depression. 4. Hypertension. 5. Arthritis. 6. Dementia. MEDICATIONS: Per reconciliation. REVIEW OF SYSTEMS: Twelve point negative except for above. PHYSICAL EXAMINATION: VITAL SIGNS: Temperature 98.3, blood pressure 150/72, pulse is around 76. NECK: Supple, no bruits. HEART: Sounds S1, S2. LUNGS: Clear. NEUROLOGIC: The patient is awake. Reduced hearing. Pupils react to light. The patient gives me her name, her age. She did not know what day it is. She does not know what month it is. She is able to name simple objects such as glasses and pen. CRANIAL: Reactive to light. MOTOR: The patient lifts both arms up, I get the feeling slightly less on the right. Legs, right is definitely weaker than the left. Some increased tone. Reflex about 1, difficult to get at the ankles. INVESTIGATIONS: CT scan of the head shows old stroke, left temporal occipital regions. A lot of atrophy, white matter changes. The patient had a carotid Doppler study done, which shows significant stenosis in the carotid artery. On the right side, 80% in the carotid bulb. On the left side, again greater than 80%. Vascular Surgery consult pending. LABORATORY DATA: WBC 5.4, hemoglobin 12.1, platelets 201. Sodium 141. UA: WBC 0-2. ASSESSMENT: 1. General weakness. 2. History of previous stroke with right-sided residual. 3. The patient has carotid stenosis bilaterally. Vascular Surgery consulted. 4. Dementia. PLAN: Continue with Vascular Surgery consult. Outpatient followup with neurology. JOB# [id number]
--- NOTE | 2018-07-09 23:01 | Progress Notes ---
DATE: 07/09/2018 Case was discussed with staff of the patient, reviewed records. The patient is n.p.o. today. She apparently had an angiogram today. The patient continues to have poor insight. Unable to make safe plan for self-care. She is demented, confused, unable to ____ meaningful conversation. She is on Celexa 20 mg at bedtime and Namenda 10 mg twice a day and Seroquel 25 mg at bedtime with no side effects. I recommend to continue treatment and thank you very much for allowing me to participate in the care of this most interesting lady. JOB# [id number]
[2018-07-10] MEDS: Enoxaparin 40 mg/0.4 mL 0.4mL Syr SUBQ SCH ×2 (01:53→12:51)
[2018-07-10] MEDS ORDERED: IOHEXOL 350mgI/mL 150mL IV ONE (05:59)
[2018-07-10 06:53] LABS: % BASOPHILS 1.2 % (0.0-2.0); % EOSINOPHILS 6.8 % (0.0-5.0); % LYMPHOCYTES 17.7 % (20.0-50.0); % MONOCYTES 8.9 % (2.0-10.0); % NEUTROPHILS 65.4 % (40.0-80.0); BASOPHILE ABSOLUTE 0.1 Th/cumm (0-0.2); EOSINOPHILE ABSOLUTE 0.4 Th/cmm (0.1-0.4); HEMATOCRIT 37.8 % (41.0-60); HEMOGLOBIN 12.7 gm/dL (12-16); MEAN CELL VOLUME 87.6 fl (81-100); MEAN CORPUSCULAR HEMOGLOBIN 29.5 pg (27.0-31.0); MEAN CORPUSCULAR HGB CONC 33.6 pg (28.0-36.0); MONOCYTE ABSOLUTE 0.5 Th/cmm (0.3-1.0); NEUTROPHILE ABSOLUTE 3.8 Th/cmm (1.8-8.0); PLATELET COUNT 225 Th/cmm (150-400); RED BLOOD COUNT 4.31 Mil/cmm (3.80-5.20); RED CELL DISTRIBUTION WIDTH 12.1 % (11.5-20.0); WHITE BLOOD COUNT 5.8 Th/cmm (4.8-10.8)
[2018-07-10 07:01] LABS: INR 0.95 (0.5-1.4); PROTHROMBIN TIME (TEST) 9.9 SECONDS (9.5-11.5)
[2018-07-10 07:10] LABS: ANION GAP 12.4 (7.0-16.0); BUN - UREA NITROGEN 29 mg/dL (7-25); CALCIUM SERUM 9.3 mg/dL (8.6-10.3); CARBON DIOXIDE 26.6 mEq/L (21.0-31.0); CHLORIDE 107 mEq/L (98-107); CREATININE - SERUM 0.9 mg/dL (0.6-1.2); GLUCOSE 74 mg/dL (70-105); SODIUM SERUM 142 mEq/L (136-145)
[2018-07-10] MEDS ORDERED: Thrombin, Bovine 5,000 IU Vial TP ONE (07:10)
[2018-07-10] MEDS ORDERED: Gelatin Sponge 100cm Spg TP ONE (07:11)
[2018-07-10] MEDS ORDERED: Dextrose 50% 50 mL Abboject IVP ONE (07:44)
[2018-07-10] MEDS ORDERED: Nitroglycerin 50mg/D5W Premix 50 MG/250 ML INFUS..BTL IV ONE (07:45)
[2018-07-10] MEDS ORDERED: DOPamine 400 MG/250 ML BAG IV ONE (07:45)
[2018-07-10] MEDS ORDERED: fentaNYL Citrate 100 mcg/2mL Vial ONE (08:20)
[2018-07-10] MEDS: Multivitamin Tab PO SCH (08:25)
[2018-07-10] MEDS: Aspirin 81mg Chewable Tab PO SCH (08:25)
--- NOTE | 2018-07-10 08:25 | Diagnostic Imaging Report ---
CHEST X-RAY: AP view INDICATION: pain COMPARISON: None FINDINGS: Suboptimal lung volumes are seen with mild congestive changes. No effusions. Cardiomegaly is noted with atherosclerosis. Degenerative changes of spine are noted with scoliosis. IMPRESSION: Suboptimal lung volume and mild congestive changes. Underlying interstitial infiltrates cannot be excluded. Cardiomegaly and atherosclerotic vascular disease.
--- NOTE | 2018-07-10 08:55 | Diagnostic Imaging Report ---
CT angiogram neck History: Carotid atherosclerotic vascular disease Comparison: Carotid ultrasound performed on 07/07/2018 Technique: Axial images were obtained from the skull base to the thoracic inlet following administration of IV contrast, angiogram protocol. Multiplanar reconstructions were made. Total DLP 305, CTD I 35 Findings: The visualized paranasal sinuses are clear. Dental hardware is noted. The parotid and submandibular glands are grossly unremarkable. Nonenlarged jugular chain lymph nodes are noted. Mildly heterogeneous thyroid gland is noted. Hypoventilatory changes of the lungs are seen with mild groundglass opacities noted. Advanced degenerative changes of the spine are noted. Vasculature: Diffuse atherosclerotic plaque including calcified and soft plaque formation of the aortic arch and branches are noted. There is also mild atherosclerotic vascular disease along the origin of the left brachiocephalic artery and right common carotid artery. There is heavy atherosclerotic vascular disease of the left carotid bulb with estimated 70-80% vessel narrowing along the left carotid bulb and origin of the left internal carotid artery. There is also heavy atherosclerotic vascular disease along the right carotid bulb internal carotid artery with estimated up to 75% vessel narrowing. There is moderate atherosclerosis along the origin of bilateral vertebral arteries. No evidence of an aneurysm or dissection. IMPRESSION: Extensive atherosclerotic vascular disease with estimated 80-85 % narrowing along the left carotid bulb and origin of the left internal carotid artery. There is also estimated 75-80 % narrowing along the right carotid bulb and origin of the right internal carotid artery. Moderate atherosclerosis suspected along the origins of bilateral vertebral arteries. No evidence of an aneurysm or dissection. Groundglass opacity in the lung apices. Changes associated with congestion or infiltrates cannot be excluded. Please correlate clinically. Results relayed to Dr. Hernandez on 07/10/2018 at 8:50 AM.
--- NOTE | 2018-07-10 09:03 | History & Physical ---
ADMIT DATE: 07/08/2018 VASCULAR CONSULT REFERRING PHYSICIAN: Jacky Wilson MD REASON FOR CONSULTATION: Carotid stenosis. Thank you for referring this patient to me. HISTORY OF PRESENT ILLNESS: This is an 82-year-old female with history of fall, dizziness and weakness who came into the Emergency Room, was admitted. PAST MEDICAL HISTORY: Includes TIA, psychosis, hypertension, hyperlipidemia, dementia and TIA. Carotid Doppler study was done and this showed severe bilateral carotid stenosis. LABORATORY STUDIES: Showed the CBC to be essentially normal, chemistry likewise. A neurological consult was done by Dr. Zurita and studies were recommended. PHYSICAL EXAMINATION: Now, the patient is awake, but unable to give any useful information. Psych evaluation has been done. The patient has no family and denies any pain at this point. The examination on the neck area shows bilateral carotid bruit. The rest of the examination was essentially unremarkable. IMPRESSION: 1. Bilateral carotid stenosis. 2. Possible transient ischemic attack. 3. Dementia. PLAN: The patient is to undergo carotid angiogram as the BUN and creatinine are within normal limits. The conservator was called about the possibility of carotid surgery if the CT angiogram confirms the degree of stenosis as read on the ultrasound study. JOB# [id number]
[2018-07-10] MEDS ORDERED: Propofol **SURGERY USE ONLY** 20 ML IV ONE (09:05)
[2018-07-10] MEDS ORDERED: Neostigmine 10mg/10mL Vial ONE (09:09)
[2018-07-10] MEDS: Nitroglycerin 50mg/D5W Premix 50 MG/250 ML INFUS..BTL IV PRN ×2 (11:20→23:28)
--- NOTE | 2018-07-10 11:20 | Operative Report ---
DATE OF SURGERY: 07/10/2018 PREOPERATIVE DIAGNOSES: 1. Transient ischemic attack. 2. Bilateral carotid stenosis, worse on the left. 3. Dementia. 4. Hyperlipidemia. 5. Hypertension. POSTOPERATIVE DIAGNOSES: 1. Transient ischemic attack. 2. Bilateral carotid stenosis, worse on the left. 3. Dementia. 4. Hyperlipidemia. 5. Hypertension. OPERATION DONE: Left carotid patch graft angioplasty. SURGEON: Dr. Hernandez. MCAT TUTOR: Dr. Bustamante ANESTHESIA: General. ANESTHESIOLOGIST: Dr. Lake ESTIMATED BLOOD LOSS: 50 mL. INDICATIONS FOR SURGERY: The patient came in for history of falls and weakness showing greater than 80% stenosis of the left common carotid artery and a lesser one on the right side. OPERATIVE FINDINGS: Approximately 70% stenosis of the left common carotid artery extending into the internal. A patch graft was done with Hemashield. The bifurcation was very high in the neck. DESCRIPTION OF PROCEDURE: The patient was given general anesthesia. The neck was hyperextended, prepped with Betadine and draped in appropriate manner. IV antibiotic was given by Anesthesiology. The incision was done along the anterior border of the sternocleidomastoid muscle. The carotid artery was found to be heavily calcified but pulsatile. The external carotid artery was found to be very high. This was dissected and isolated as well as the internal carotid artery. 5000 units of heparin was given intravenously. Clamps were applied on the exposed vessels and an arteriotomy was made in the common carotid artery and a Perez-Inahara shunt was applied. Occlusion time 4 minutes. Because of the moderate amount of calcification, no endarterectomy was done, especially as the carotid bifurcation was extremely high extending close to the mandible. A patch graft with Hemashield was sutured in place utilizing running suture of 5-0 Prolene. The shunt was removed and the rest of the sutures were placed. Following release of all clamps, there was no bleeding at the anastomotic site. Occlusion time 3 minutes. A Gelfoam soaked in thrombin was applied over the patch graft. Hemostasis was satisfactory and 15 mg of protamine sulfate was injected. Incision was closed with a Kait drain and the subcutaneous tissues were approximated with running suture of 3-0 Vicryl and the with the same material. The patient will be sent to ICU and monitor the vital signs closely and blood pressure for better control. [facility]# [id number]
[2018-07-10] MEDS: Meperidine 25 mg/mL 1mL Syr IVP PRN ×3 (11:48→12:19)
[2018-07-10] MEDS: D5-0.45NS 1,000 ML IV SCH (12:38)
[2018-07-10] MEDS: Morphine Sulfate 2 mg/mL 1mL Syr IVP PRN (19:56)
--- NOTE | 2018-07-10 20:36 | Internal Medicine Prog Note ---
Internal Medicine Subjective - Subjective Service Date: 07/10/18 Patient is:: awake, confused, other (patient is weak) Internal Medicine Objective - Results Result Diagrams: 07/10/18 05:55 07/10/18 05:55 Recent Labs: Laboratory Last Values WBC 5.8 Th/cmm (4.8-10.8) 07/10/18 05:55 RBC 4.31 Mil/cmm (3.80-5.20) 07/10/18 05:55 Hgb 12.7 gm/dL (12-16) 07/10/18 05:55 Hct 37.8 % (41.0-60) L 07/10/18 05:55 MCV 87.6 fl (81-100) 07/10/18 05:55 MCH 29.5 pg (27.0-31.0) 07/10/18 05:55 MCHC Differential 33.6 pg (28.0-36.0) 07/10/18 05:55 RDW 12.1 % (11.5-20.0) 07/10/18 05:55 Plt Count 225 Th/cmm (150-400) 07/10/18 05:55 MPV 8.0 fl 07/10/18 05:55 Neutrophils % 65.4 % (40.0-80.0) 07/10/18 05:55 Lymphocytes % 17.7 % (20.0-50.0) L 07/10/18 05:55 Monocytes % 8.9 % (2.0-10.0) 07/10/18 05:55 Eosinophils % 6.8 % (0.0-5.0) H 07/10/18 05:55 Basophils % 1.2 % (0.0-2.0) 07/10/18 05:55 PT 9.9 SECONDS (9.5-11.5) 07/10/18 05:55 INR 0.95 (0.5-1.4) 07/10/18 05:55 PTT (Actin FS) 26.0 SECONDS (26.0-38.0) 07/10/18 05:55 Sodium 142 mEq/L (136-145) 07/10/18 05:55 Potassium 4.0 mEq/L (3.5-5.1) 07/10/18 05:55 Chloride 107 mEq/L (98-107) 07/10/18 05:55 Carbon Dioxide 26.6 mEq/L (21.0-31.0) 07/10/18 05:55 Anion Gap 12.4 (7.0-16.0) 07/10/18 05:55 BUN 29 mg/dL (7-25) H 07/10/18 05:55 Creatinine 0.9 mg/dL (0.6-1.2) 07/10/18 05:55 Est GFR ( Amer) TNP 07/10/18 05:55 Est GFR (Non-Af Amer) TNP 07/10/18 05:55 BUN/Creatinine Ratio 32.2 07/10/18 05:55 Glucose 74 mg/dL (70-105) 07/10/18 05:55 POC Glucose 59 MG/DL (70 - 105) L 07/10/18 07:39 Calcium 9.3 mg/dL (8.6-10.3) 07/10/18 05:55 Phosphorus 3.2 mg/dL (2.5-5.0) 07/06/18 16:04 Magnesium 2.0 mg/dL (1.9-2.7) 07/06/18 16:04 Total Bilirubin 0.4 mg/dL (0.3-1.0) 07/07/18 06:19 AST 15 U/L (13-39) 07/07/18 06:19 ALT 12 U/L (7-52) 07/07/18 06:19 Alkaline Phosphatase 66 U/L (34-104) 07/07/18 06:19 Total Protein 6.3 gm/dL (6.0-8.3) 07/07/18 06:19 Albumin 3.3 gm/dL (3.7-5.3) L 07/07/18 06:19 Globulin 3.0 gm/dL 07/07/18 06:19 Albumin/Globulin Ratio 1.1 (1.0-1.8) 07/07/18 06:19 Carcinoembryonic Ag 4.1 ng/mL (0.0-4.7) 07/07/18 06:19 TSH 3.66 uIU/ml (0.34-5.60) 07/07/18 06:19 Urine Source CLEAN C 07/06/18 16:10 Urine Color YELLOW 07/06/18 16:10 Urine Clarity CLEAR (CLEAR) 07/06/18 16:10 Urine pH 6.0 (4.6 - 8.0) 07/06/18 16:10 Ur Specific [place] 1.025 (1.005-1.030) 07/06/18 16:10 Urine Protein TRACE mg/dL (NEGATIVE) 07/06/18 16:10 Urine Glucose (UA) NEGATIVE mg/dL (NEGATIVE) 07/06/18 16:10 Urine Ketones NEGATIVE mg/dL (NEGATIVE) 07/06/18 16:10 Urine Blood TRACE (NEGATIVE) 07/06/18 16:10 Urine Nitrate NEGATIVE (NEGATIVE) 07/06/18 16:10 Urine Bilirubin NEGATIVE (NEGATIVE) 07/06/18 16:10 Urine Urobilinogen 0.2 E.U./dL (0.2 - 1.0) 07/06/18 16:10 Ur Leukocyte Esterase NEGATIVE (NEGATIVE) 07/06/18 16:10 Urine RBC 2-5 /hpf (0-5) 07/06/18 16:10 Urine WBC 0-2 /hpf (0-5) 07/06/18 16:10 Ur Epithelial Cells FEW /lpf (FEW) 07/06/18 16:10 Urine Bacteria FEW /hpf (NONE SEEN) 07/06/18 16:10 Urine Mucus FEW /lpf (FEW) 07/06/18 16:10 - Physical Exam Vitals and I&O: Vital Signs Temp 96.2 F 07/10/18 11:20 Pulse 95 07/10/18 20:15 Resp 15 07/10/18 18:44 BP 147/80 07/10/18 20:15 Pulse Ox 97 07/10/18 18:44 Intake & Output 07/10/18 07/10/18 07/11/18 06:59 18:59 06:59 Intake Total 1087.00 11.9 Output Total 400 Balance 687.00 11.9 Weight (lbs) 79.56 kg 79.379 kg Intake: Intake, IV Amount 1087.00 11.9 D5-0.45NS 1,000 ml @ 50 1000 mls/hr IV .Q20H [facility] Rx#: [id number] Nitroglycerin 50mg/D5W 87.00 11.9 Premix 50 mg In 250 ml @ Titrate IV TITR PRN Rx#: [id number] Oral 0 Output: Urine 400 Other: # Voids 2 2 # Bowel Movements 1 0 Weight Source Bedscale Patient stated Active Medications: Current Medications Acetaminophen (Tylenol) 650 mg PO Q4HR PRN PRN Reason: Fever > 101 OR MILD PAIN Stop: 09/05/18 09:25 Al Hydrox/Mg Hydrox/Simethicone (Maalox) 30 ml PO Q4HR PRN PRN Reason: GI DISTRESS Stop: 09/05/18 09:34 Aspirin (Aspirin Chewable) 81 mg PO DAILY [facility] Stop: 09/05/18 09:29 Last Admin: 07/10/18 08:25 Dose: Not Given Atorvastatin Calcium (Lipitor) 10 mg PO HS [facility]; Protocol Stop: 09/05/18 20:59 Last Admin: 07/09/18 21:36 Dose: 10 mg Calcium Carbonate (Os-Vern) 500 mg PO DAILY [place] Stop: 09/05/18 09:29 Last Admin: 07/10/18 08:25 Dose: Not Given Citalopram Hydrobromide (Celexa) 20 mg PO HS [facility]; Protocol Stop: 09/05/18 20:59 Last Admin: 07/09/18 21:37 Dose: 20 mg Docusate Sodium (Colace) 250 mg PO DAILY [facility] Stop: 09/05/18 09:29 Last Admin: 07/10/18 08:25 Dose: Not Given Enoxaparin Sodium (Lovenox) 40 mg SUBQ Q12H [facility] Stop: 09/06/18 12:14 Last Admin: 07/10/18 12:51 Dose: 40 mg Ergocalciferol (Vitamin D2) 50,000 iu PO QSUN [facility] Stop: 09/06/18 08:59 Last Admin: 07/08/18 10:07 Dose: Not Given Dextrose/Sodium Chloride (D5-0.45ns) 1,000 mls @ 50 mls/hr IV .Q20H [facility] Stop: 09/04/18 23:29 Last Admin: 07/10/18 12:38 Dose: 50 mls/hr Nitroglycerin/Dextrose (Nitroglycerin 50mg/Dextrose 5% Premix) 50 mg in 250 mls @ 0 mls/hr IV TITR PRN; Protocol PRN Reason: BP MAINTENANCE Stop: 09/08/18 14:32 Last Titration: 07/10/18 19:04 Dose: 80 mcg/min, 24 mls/hr Lorazepam (Ativan) 1 mg IVP Q4HR PRN; Protocol PRN Reason: Agitation Stop: 09/05/18 18:12 Last Admin: 07/10/18 16:17 Dose: 1 mg Magnesium Hydroxide (Milk Of Magnesia) 30 ml PO HS PRN PRN Reason: Constipation Stop: 09/05/18 09:18 Memantine (Namenda) 10 mg PO BID [place] Stop: 09/05/18 09:29 Last Admin: 07/10/18 16:05 Dose: Not Given Meperidine HCl (Demerol) 25 mg IVP NOW PRN PRN Reason: post-op Stop: 09/08/18 11:33 Last Admin: 07/10/18 12:19 Dose: 25 mg Morphine Sulfate (Morphine) 1 mg IVP Q4HR PRN PRN Reason: Pain (Moderate) 4-7 Stop: 09/08/18 19:41 Last Admin: 07/10/18 19:56 Dose: 1 mg Multivitamins/Vitamin C (Theragran) 1 tab PO DAILY [facility] Stop: 09/06/18 08:59 Last Admin: 07/10/18 08:25 Dose: Not Given Mupirocin (Bactroban Oint) 1 appl NS BID [facility] Stop: 07/13/18 09:01 Last Admin: 07/10/18 16:20 Dose: 1 appl Quetiapine Fumarate (Seroquel) 25 mg PO HS [facility]; Protocol Stop: 09/05/18 20:59 Last Admin: 07/09/18 21:37 Dose: 25 mg General: weak HEENT: NC/AT Neck: Supple Lungs: CTAB Cardiovascular: Normal S1, Normal S2 Abdomen: soft Extremities: clear Neurological: muscle weakness - Procedures Procedures: Procedures Procedure Code Date GROUP PSYCHOTHERAPY GZHZZZZ 11/25/16 SUPPLEMENT L COM CAROTID WITH SYNTH SUB, OPEN APPROACH [id number] 07/06/18 Internal Medicine Assmt/Plan - Assessment Assessment: s/p left graft angioplasty dysuria fever gen weakness acute - Plan Plan: icu monitoring pain mgmt cpm
[2018-07-10] MEDS: Atorvastatin Calcium 10 MG TAB PO SCH (21:31)
--- NOTE | 2018-07-10 23:32 | Progress Notes ---
DATE: 07/10/2018 FOLLOWUP PROGRESS NOTE SUBJECTIVE: Case was discussed with staff of the patient, reviewed records. The patient was transferred to ICU. She has surgery because of ___ carotid arteries. She is scheduled to have episodes of agitation, irritability, but in general, she is recovering smoothly. The patient may continue on her medication. Thank you very much for allowing me to participate in the care of this most consistent. [facility]# [id number]
[2018-07-11] MEDS: Enoxaparin 40 mg/0.4 mL 0.4mL Syr SUBQ SCH ×2 (00:31→11:59)
[2018-07-11] MEDS: Morphine Sulfate 2 mg/mL 1mL Syr IVP PRN ×4 (03:23→20:04)
--- NOTE | 2018-07-11 04:01 | Progress Notes ---
DATE: 07/10/2018 SUBJECTIVE: The patient lying in bed in ICU. The patient had a left carotid endarterectomy. The patient is somewhat drowsy. Staff tells me that blood pressure was high, they gave medication. The patient is on IV and also given some Ativan. The patient is somewhat drowsy, but still will respond. The patient has no seizures. OBJECTIVE: VITAL SIGNS: 98.8, blood pressure 180/94, pulse is 70. NECK: Supple, no bruits. CARDIOVASCULAR: Heart sounds S1, S2. RESPIRATORY: Lungs clear. NEUROLOGIC: The patient will lift but weaker somewhat on the right as before. The patient withdrawal both upper extremities. ASSESSMENT: 1. The patient with a previous stroke. 2. The patient with a carotid stenosis. 3. The patient postop left carotid endarterectomy. 4. Dementia. 5. General weakness. JOB# [id number]
[2018-07-11 05:10] LABS: % BASOPHILS 0.3 % (0.0-2.0); % EOSINOPHILS 0.5 % (0.0-5.0); % LYMPHOCYTES 5.9 % (20.0-50.0); % MONOCYTES 7.9 % (2.0-10.0); % NEUTROPHILS 85.4 % (40.0-80.0); EOSINOPHILE ABSOLUTE 0.1 Th/cmm (0.1-0.4); HEMOGLOBIN 10.2 gm/dL (12-16); LYMPHOCYTE ABSOLUTE 0.6 Th/cmm (1.5-3.0); MEAN CELL VOLUME 86.5 fl (81-100); MEAN CORPUSCULAR HEMOGLOBIN 29.5 pg (27.0-31.0); MEAN CORPUSCULAR HGB CONC 34.1 pg (28.0-36.0); MEAN PLATELET VOLUME 7.8 fl; MONOCYTE ABSOLUTE 0.8 Th/cmm (0.3-1.0); NEUTROPHILE ABSOLUTE 9.1 Th/cmm (1.8-8.0); PLATELET COUNT 228 Th/cmm (150-400); RED BLOOD COUNT 3.47 Mil/cmm (3.80-5.20); RED CELL DISTRIBUTION WIDTH 12.2 % (11.5-20.0)
[2018-07-11 05:29] LABS: ALB/GLOB RATIO 1.2 (1.0-1.8); ALBUMIN 3.2 gm/dL (3.7-5.3); ALKALINE PHOSPHATASE 51 U/L (34-104); ANION GAP 11.7 (7.0-16.0); BILIRUBIN,TOTAL 0.6 mg/dL (0.3-1.0); BUN - UREA NITROGEN 28 mg/dL (7-25); CALCIUM SERUM 8.5 mg/dL (8.6-10.3); CARBON DIOXIDE 24.3 mEq/L (21.0-31.0); CHLORIDE 106 mEq/L (98-107); CREATININE - SERUM 0.9 mg/dL (0.6-1.2); SGOT 17 U/L (13-39); SGPT/ALT 12 U/L (7-52); SODIUM SERUM 138 mEq/L (136-145); TOTAL PROTEIN,SERUM 5.8 gm/dL (6.0-8.3)
[2018-07-11 05:31] LABS: WHITE BLOOD COUNT 10.6 Th/cmm (4.8-10.8)
[2018-07-11 05:35] LABS: GLUCOSE 168 mg/dL (70-105)
[2018-07-11 05:58] LABS: BAND NEUTROPHILE 3 % (0-10); LYMPHOCYTE 8 % (20-50); MONOCYTE 6 % (2-10); NEUTROPHILS 83 % (40-80); PLATELET ESTIMATE ADEQUATE (NORMAL)
[2018-07-11] MEDS: D5-0.45NS 1,000 ML IV SCH (08:40)
[2018-07-11] MEDS: Multivitamin Tab PO SCH (09:31)
[2018-07-11] MEDS: Aspirin 81mg Chewable Tab PO SCH (09:31)
[2018-07-11] MEDS: Nitroglycerin 50mg/D5W Premix 50 MG/250 ML INFUS..BTL IV PRN ×2 (11:21→21:50)
--- NOTE | 2018-07-11 12:28 | Internal Medicine Prog Note ---
Internal Medicine Subjective - Subjective Patient seen and examined:: chart reviewed Patient is:: awake, confused, other (dtill confused ) Internal Medicine Objective - Results Result Diagrams: 07/11/18 04:55 07/11/18 04:55 Recent Labs: Laboratory Last Values WBC 10.6 Th/cmm (4.8-10.8) D 07/11/18 04:55 RBC 3.47 Mil/cmm (3.80-5.20) L 07/11/18 04:55 Hgb 10.2 gm/dL (12-16) L 07/11/18 04:55 Hct 30.0 % (41.0-60) L D 07/11/18 04:55 MCV 86.5 fl (81-100) 07/11/18 04:55 MCH 29.5 pg (27.0-31.0) 07/11/18 04:55 MCHC Differential 34.1 pg (28.0-36.0) 07/11/18 04:55 RDW 12.2 % (11.5-20.0) 07/11/18 04:55 Plt Count 228 Th/cmm (150-400) 07/11/18 04:55 MPV 7.8 fl 07/11/18 04:55 Neutrophils % 85.4 % (40.0-80.0) H 07/11/18 04:55 Band Neutrophils % 3 % (0-10) 07/11/18 04:55 Lymphocytes % 5.9 % (20.0-50.0) L 07/11/18 04:55 Monocytes % 7.9 % (2.0-10.0) 07/11/18 04:55 Eosinophils % 0.5 % (0.0-5.0) 07/11/18 04:55 Basophils % 0.3 % (0.0-2.0) 07/11/18 04:55 Neutrophils (Manual) 83 % (40-80) H 07/11/18 04:55 Lymphocytes 8 % (20-50) L 07/11/18 04:55 Monocytes 6 % (2-10) 07/11/18 04:55 Platelet Estimate ADEQUATE (NORMAL) 07/11/18 04:55 PT 9.9 SECONDS (9.5-11.5) 07/10/18 05:55 INR 0.95 (0.5-1.4) 07/10/18 05:55 PTT (Actin FS) 26.0 SECONDS (26.0-38.0) 07/10/18 05:55 Sodium 138 mEq/L (136-145) 07/11/18 04:55 Potassium 4.0 mEq/L (3.5-5.1) 07/11/18 04:55 Chloride 106 mEq/L (98-107) 07/11/18 04:55 Carbon Dioxide 24.3 mEq/L (21.0-31.0) 07/11/18 04:55 Anion Gap 11.7 (7.0-16.0) 07/11/18 04:55 BUN 28 mg/dL (7-25) H 07/11/18 04:55 Creatinine 0.9 mg/dL (0.6-1.2) 07/11/18 04:55 Est GFR ( Amer) TNP 07/11/18 04:55 Est GFR (Non-Af Amer) TNP 07/11/18 04:55 BUN/Creatinine Ratio 31.1 07/11/18 04:55 Glucose 168 mg/dL (70-105) H D 07/11/18 04:55 POC Glucose 59 MG/DL (70 - 105) L 07/10/18 07:39 Calcium 8.5 mg/dL (8.6-10.3) L 07/11/18 04:55 Phosphorus 3.2 mg/dL (2.5-5.0) 07/06/18 16:04 Magnesium 2.0 mg/dL (1.9-2.7) 07/11/18 04:55 Total Bilirubin 0.6 mg/dL (0.3-1.0) 07/11/18 04:55 AST 17 U/L (13-39) 07/11/18 04:55 ALT 12 U/L (7-52) 07/11/18 04:55 Alkaline Phosphatase 51 U/L (34-104) 07/11/18 04:55 Total Protein 5.8 gm/dL (6.0-8.3) L 07/11/18 04:55 Albumin 3.2 gm/dL (3.7-5.3) L 07/11/18 04:55 Globulin 2.6 gm/dL 07/11/18 04:55 Albumin/Globulin Ratio 1.2 (1.0-1.8) 07/11/18 04:55 Carcinoembryonic Ag 4.1 ng/mL (0.0-4.7) 07/07/18 06:19 TSH 3.66 uIU/ml (0.34-5.60) 07/07/18 06:19 Urine Source CLEAN C 07/06/18 16:10 Urine Color YELLOW 07/06/18 16:10 Urine Clarity CLEAR (CLEAR) 07/06/18 16:10 Urine pH 6.0 (4.6 - 8.0) 07/06/18 16:10 Ur Specific [place] 1.025 (1.005-1.030) 07/06/18 16:10 Urine Protein TRACE mg/dL (NEGATIVE) 07/06/18 16:10 Urine Glucose (UA) NEGATIVE mg/dL (NEGATIVE) 07/06/18 16:10 Urine Ketones NEGATIVE mg/dL (NEGATIVE) 07/06/18 16:10 Urine Blood TRACE (NEGATIVE) 07/06/18 16:10 Urine Nitrate NEGATIVE (NEGATIVE) 07/06/18 16:10 Urine Bilirubin NEGATIVE (NEGATIVE) 07/06/18 16:10 Urine Urobilinogen 0.2 E.U./dL (0.2 - 1.0) 07/06/18 16:10 Ur Leukocyte Esterase NEGATIVE (NEGATIVE) 07/06/18 16:10 Urine RBC 2-5 /hpf (0-5) 07/06/18 16:10 Urine WBC 0-2 /hpf (0-5) 07/06/18 16:10 Ur Epithelial Cells FEW /lpf (FEW) 07/06/18 16:10 Urine Bacteria FEW /hpf (NONE SEEN) 07/06/18 16:10 Urine Mucus FEW /lpf (FEW) 07/06/18 16:10 - Physical Exam Vitals and I&O: Vital Signs Temp 98.9 F 07/11/18 12:00 Pulse 99 07/11/18 12:15 Resp 16 07/11/18 12:00 BP 158/62 07/11/18 12:15 Pulse Ox 97 07/11/18 12:00 Intake & Output 07/10/18 07/11/18 07/11/18 18:59 06:59 18:59 Intake Total 1087.00 1183.625 185.0 Output Total 400 375 Balance 687.00 808.625 185.0 Weight (lbs) 79.379 kg 80.15 kg Intake: Intake, IV Amount 1087.00 1183.625 185.0 D5-0.45NS 1,000 ml @ 50 1000 895 105 mls/hr IV .Q20H [facility] Rx#: [id number] Nitroglycerin 50mg/D5W 87.00 288.625 80.0 Premix 50 mg In 250 ml @ Titrate IV TITR PRN Rx#: [id number] Oral 0 Output: Urine 400 375 Other: # Voids 2 # Bowel Movements 0 0 Weight Source Patient stated Bedscale Active Medications: Current Medications Acetaminophen (Tylenol) 650 mg PO Q4HR PRN PRN Reason: Fever > 101 OR MILD PAIN Stop: 09/05/18 09:25 Al Hydrox/Mg Hydrox/Simethicone (Maalox) 30 ml PO Q4HR PRN PRN Reason: GI DISTRESS Stop: 09/05/18 09:34 Aspirin (Aspirin Chewable) 81 mg PO DAILY [facility] Stop: 09/05/18 09:29 Last Admin: 07/11/18 09:31 Dose: Not Given Atorvastatin Calcium (Lipitor) 10 mg PO [facility]; Protocol Stop: 09/05/18 20:59 Last Admin: 07/10/18 21:31 Dose: Not Given Calcium Carbonate (Os-Vern) 500 mg PO DAILY [facility] Stop: 09/05/18 09:29 Last Admin: 07/11/18 09:31 Dose: Not Given Citalopram Hydrobromide (Celexa) 20 mg PO HS [facility]; Protocol Stop: 09/05/18 20:59 Last Admin: 18 21:31 Dose: Not Given Docusate Sodium (Colace) 250 mg PO DAILY [facility] Stop: 09/05/18 09:29 Last Admin: 07/11/18 09:31 Dose: Not Given Enoxaparin Sodium (Lovenox) 40 mg SUBQ Q12H [facility] Stop: 09/06/18 12:14 Last Admin: 07/11/18 11:59 Dose: 40 mg Ergocalciferol (Vitamin D2) 50,000 iu PO QSUN [facility] Stop: 09/06/18 08:59 Last Admin: 07/08/18 10:07 Dose: Not Given Dextrose/Sodium Chloride (D5-0.45ns) 1,000 mls @ 50 mls/hr IV .Q20H [facility] Stop: 09/04/18 23:29 Last Admin: 07/11/18 08:40 Dose: 50 mls/hr Nitroglycerin/Dextrose (Nitroglycerin 50mg/Dextrose 5% Premix) 50 mg in 250 mls @ 0 mls/hr IV TITR PRN; Protocol PRN Reason: BP MAINTENANCE Stop: 09/08/18 14:32 Last Admin: 07/11/18 11:21 Dose: 60 mcg/min, 18 mls/hr Lorazepam (Ativan) 1 mg IVP Q4HR PRN; Protocol PRN Reason: Agitation Stop: 09/05/18 18:12 Last Admin: 07/11/18 09:27 Dose: 1 mg Magnesium Hydroxide (Milk Of Magnesia) 30 ml PO HS PRN PRN Reason: Constipation Stop: 09/05/18 09:18 Memantine (Namenda) 10 mg PO BID [facility] Stop: 09/05/18 09:29 Last Admin: 07/11/18 09:31 Dose: Not Given Meperidine HCl (Demerol) 25 mg IVP NOW PRN PRN Reason: post-op Stop: 09/08/18 11:33 Last Admin: 07/10/18 12:19 Dose: 25 mg Morphine Sulfate (Morphine) 1 mg IVP Q4HR PRN PRN Reason: Pain (Moderate) 4-7 Stop: 09/08/18 19:41 Last Admin: 07/11/18 11:58 Dose: 1 mg Multivitamins/Vitamin C (Theragran) 1 tab PO DAILY [facility] Stop: 09/06/18 08:59 Last Admin: 07/11/18 09:31 Dose: Not Given Mupirocin (Bactroban Oint) 1 appl NS BID [facility] Stop: 07/13/18 09:01 Last Admin: 07/11/18 09:27 Dose: 1 appl Quetiapine Fumarate (Seroquel) 25 mg PO HS [facility]; Protocol Stop: 09/05/18 20:59 Last Admin: 07/10/18 21:31 Dose: Not Given General: weak HEENT: NC/AT Neck: Supple Lungs: CTAB Cardiovascular: Normal S1, Normal S2 Abdomen: soft Extremities: clear Neurological: muscle weakness - Procedures Procedures: Procedures Procedure Code Date GROUP PSYCHOTHERAPY GZHZZZZ 11/25/16 SUPPLEMENT L COM CAROTID WITH SYNTH SUB, OPEN APPROACH [id number] 07/06/18 Internal Medicine Assmt/Plan - Assessment Assessment: s/p left graft angioplasty dysuria fever gen weakness acute - Plan Plan: icu monitoring pain mgmt cpm
--- NOTE | 2018-07-11 19:50 | Progress Notes ---
DATE: 07/11/2018 FOLLOWUP PROGRESS NOTE Case was discussed with staff of the patient, reviewed records. The patient is still in ICU and she has been having episodes of agitation, irritability, was given Ativan. She is recovering from carotid artery surgery and endarterectomy. She is demented, confused, compliant with the medication with no side effects. The patient will be transferred to the medical floor. She is on Seroquel and some very small dose 25 mg at bedtime and Celexa 20 mg at bedtime with no side effects and I would recommend the patient continue her medication and I will not be available in the next few days. Dr. Hargrove is actually the consulting psychiatrist on her, but I was covering for him, but you may contact him, if anything is needed till next week as he will be available, who covers him and Dr. Jimenez. Thank you very much for allowing me to participate in the care of this most interesting lady. JOB# [id number]
--- NOTE | 2018-07-11 20:33 | Progress Notes ---
DATE: 07/11/2018 SUBJECTIVE: The patient in ICU postop left carotid endarterectomy. Staff tells me she will interact, confused. Moving extremities, a little bit less on the right as before. MEDICATIONS: The patient is on nitroglycerin for blood pressure control. Still at times high. Lovenox 40 mg subcutaneous every 12 hours, Lorazepam, memantine. OBJECTIVE: VITAL SIGNS: 98.4, blood pressure 135/58, pulse is 86. NECK: Supple, no bruits. CARDIOVASCULAR: Heart sounds S1, S2. RESPIRATORY: Lungs clear. NEUROLOGIC: The patient is in bed. Follows instruction, but confused. Will move right and left, less on the right. ASSESSMENT: 1. History of stroke. 2. Carotid stenosis. 3. Post left carotid endarterectomy. 4. Dementia. 5. Weakness. JOB# [id number]
[2018-07-11] MEDS: Atorvastatin Calcium 10 MG TAB PO SCH (22:07)
--- NOTE | 2018-07-11 22:08 | Consultation ---
DATE OF CONSULTATION: 07/11/2018 HISTORY OF PRESENT ILLNESS: This 82-year-old female was admitted here with dizziness, weakness, history of fall. The patient does have a history of hypertension, history of dementia. She was also there is a question of a possible urinary tract infection. There was no chest pain, no shortness of breath, no history of seizures, no history of cough, fever, or hemoptysis. No history of abdominal pain. No history of nausea or vomiting. No history of hematemesis. No history of melena. No history of bleeding per rectum. There is no history available from the patient, information from the chart. Apparently, she was seen here by a neurologist and had a procedure done left carotid patch graft angioplasty by Dr. Hernandez following which the patient is in ICU, has been on IV nitroglycerin drip to control the blood pressure because the patient has been n.p.o. so far. I should mention here, there is no history available from the patient. All this information was obtained from the chart. PAST MEDICAL HISTORY: According to the chart as mentioned above. Also, history of psychosis and dementia. According to the nurses before the surgery, the patient has been confused. PHYSICAL EXAMINATION: VITAL SIGNS: Heart rate is 80, blood pressure of the right is 120/70. SKIN: Normal. HEAD: Normocephalic. Eyes are dark pink. There is no icterus in the eyes. Pupils reactive to light. NECK: There was no increased jugular venous distention, no thyromegaly, no lymphadenopathy. Carotids equal both sides. CHEST: Bilaterally symmetrical, moved well with respiration. Respiratory movements equal both sides. Trachea is central. There is note to percussion. Breath sound with scattered rales mostly at the bases. CARDIOVASCULAR SYSTEM: PMI not well localized. There is no pulsatile thrill. No parasternal heave. S1 normal, S2 physiologic. There were no S3, no rub. ABDOMEN: Soft, no tenderness, no rigidity, no guarding, no organomegaly. Bowel sounds normal. EXTREMITIES: There is no edema, no calf tenderness. On looking. LABORATORY DATA: WBC was 10.6, hemoglobin 10.2, hematocrit 30, MCV 86.5, MCH 29.5, MCHC 34.1, platelet count is 228, bands of 3. Sodium 138, potassium 4.0, chloride 106, CO2 of 24.3, glucose 186, BUN 28, creatinine 0.9, calcium 8.5, total protein is 5.8, albumin 3.2, bilirubin total 0.6, SGOT 17, SGPT 12, alkaline phosphatase 51. Magnesium 2.0. CEA was 4.1. TSH 3.66. Chest x-ray showed suboptimal lung volume and mild congestive changes, underlying interstitial infiltrates cannot be excluded. CT Carotid angiogram showed extensive atherosclerotic vascular disease with estimated 80-85% narrowing along with the left carotid bulb and origin of the left internal carotid artery. There is also estimated 75-80% narrowing along the right carotid bulb and origin of the right internal carotid artery, moderate atherosclerosis suspected along origin of the bilateral vertebral artery, ground glass opacity in the lung apices changes associated with congestion or infiltrate could not be excluded. EKG showed sinus rhythm at PACs, left axis deviation, possible old septal injury. IMPRESSION: Status post left carotid patch graft angioplasty; carotid artery disease; hypertension, uncontrolled; history of falls; history of transient ischemic attack; history of psychosis; hypertension; hyperlipidemia; dementia; and transient ischemic attack. PLAN: At present, the patient is on IV nitroglycerin. Suggest to continue the same to controlled the hypertension. When the patient is able to take p.o., we will restart on ARBs and possibly a beta anahi to control blood pressure. Also patient should be on some statins and aspirin. In the meantime, we will get echocardiogram if not done and lipid profile, BMP, and BNP. We will follow with you as needed. JOB# [id number]
[2018-07-12] MEDS: Enoxaparin 40 mg/0.4 mL 0.4mL Syr SUBQ SCH ×2 (01:24→11:48)
[2018-07-12] MEDS: Morphine Sulfate 2 mg/mL 1mL Syr IVP PRN ×3 (02:03→20:02)
[2018-07-12] MEDS: D5-0.45NS 1,000 ML IV SCH ×2 (04:46→12:41)
[2018-07-12] MEDS: Nitroglycerin 50mg/D5W Premix 50 MG/250 ML INFUS..BTL IV PRN (06:39)
[2018-07-12 06:53] LABS: HEMATOCRIT 28.8 % (41.0-60); HEMOGLOBIN 9.7 gm/dL (12-16); MEAN CELL VOLUME 87.2 fl (81-100); MEAN CORPUSCULAR HEMOGLOBIN 29.4 pg (27.0-31.0); MEAN CORPUSCULAR HGB CONC 33.7 pg (28.0-36.0); MEAN PLATELET VOLUME 8.3 fl; PLATELET COUNT 165 Th/cmm (150-400); RED CELL DISTRIBUTION WIDTH 11.9 % (11.5-20.0); WHITE BLOOD COUNT 8.3 Th/cmm (4.8-10.8)
[2018-07-12 07:04] LABS: ANION GAP 8.6 (7.0-16.0); BUN - UREA NITROGEN 15 mg/dL (7-25); CALCIUM SERUM 8.5 mg/dL (8.6-10.3); CARBON DIOXIDE 25.8 mEq/L (21.0-31.0); CHLORIDE 103 mEq/L (98-107); CHOLESTEROL 132 mg/dL (<200); CREATININE - SERUM 0.6 mg/dL (0.6-1.2); GLUCOSE 133 mg/dL (70-105); HDL -HIGH DENSITY LIPOPROTEIN 37 mg/dL (23-92); POTASSIUM SERUM 3.4 mEq/L (3.5-5.1); SODIUM SERUM 134 mEq/L (136-145); TRIGLYCERIDES 64 mg/dL (<150)
[2018-07-12] MEDS: Multivitamin Tab PO SCH (09:24)
[2018-07-12] MEDS: Aspirin 81mg Chewable Tab PO SCH (09:24)
--- NOTE | 2018-07-12 10:01 | General Progress Note ---
Subjective - Review of Systems Events since last encounter: 07/12/18 BP better drain out, redressed no neuro deficit Objective - Results Result Diagrams: 07/12/18 06:20 07/12/18 06:20 Recent Labs: Laboratory Last Values WBC 8.3 Th/cmm (4.8-10.8) 07/12/18 06:20 RBC 3.30 Mil/cmm (3.80-5.20) L 07/12/18 06:20 Hgb 9.7 gm/dL (12-16) L 07/12/18 06:20 Hct 28.8 % (41.0-60) L 07/12/18 06:20 MCV 87.2 fl (81-100) 07/12/18 06:20 MCH 29.4 pg (27.0-31.0) 07/12/18 06:20 MCHC Differential 33.7 pg (28.0-36.0) 07/12/18 06:20 RDW 11.9 % (11.5-20.0) 07/12/18 06:20 Plt Count 165 Th/cmm (150-400) 07/12/18 06:20 MPV 8.3 fl 07/12/18 06:20 Neutrophils % 79.6 % (40.0-80.0) 07/12/18 06:20 Band Neutrophils % 3 % (0-10) 07/11/18 04:55 Lymphocytes % 6.6 % (20.0-50.0) L 07/12/18 06:20 Monocytes % 12.0 % (2.0-10.0) H 07/12/18 06:20 Eosinophils % 1.0 % (0.0-5.0) 07/12/18 06:20 Basophils % 0.8 % (0.0-2.0) 07/12/18 06:20 Neutrophils (Manual) 83 % (40-80) H 07/11/18 04:55 Lymphocytes 8 % (20-50) L 07/11/18 04:55 Monocytes 6 % (2-10) 07/11/18 04:55 Platelet Estimate ADEQUATE (NORMAL) 07/11/18 04:55 PT 9.9 SECONDS (9.5-11.5) 07/10/18 05:55 INR 0.95 (0.5-1.4) 07/10/18 05:55 PTT (Actin FS) 26.0 SECONDS (26.0-38.0) 07/10/18 05:55 Sodium 134 mEq/L (136-145) L 07/12/18 06:20 Potassium 3.4 mEq/L (3.5-5.1) L 07/12/18 06:20 Chloride 103 mEq/L (98-107) 07/12/18 06:20 Carbon Dioxide 25.8 mEq/L (21.0-31.0) 07/12/18 06:20 Anion Gap 8.6 (7.0-16.0) 07/12/18 06:20 BUN 15 mg/dL (7-25) 07/12/18 06:20 Creatinine 0.6 mg/dL (0.6-1.2) 07/12/18 06:20 Est GFR ( Amer) TNP 07/12/18 06:20 Est GFR (Non-Af Amer) TNP 07/12/18 06:20 BUN/Creatinine Ratio 25.0 07/12/18 06:20 Glucose 133 mg/dL (70-105) H 07/12/18 06:20 POC Glucose 59 MG/DL (70 - 105) L 07/10/18 07:39 Calcium 8.5 mg/dL (8.6-10.3) L 07/12/18 06:20 Phosphorus 3.2 mg/dL (2.5-5.0) 07/06/18 16:04 Magnesium 2.0 mg/dL (1.9-2.7) 07/11/18 04:55 Total Bilirubin 0.6 mg/dL (0.3-1.0) 07/11/18 04:55 AST 17 U/L (13-39) 07/11/18 04:55 ALT 12 U/L (7-52) 07/11/18 04:55 Alkaline Phosphatase 51 U/L (34-104) 07/11/18 04:55 B-Natriuretic Peptide 190.0 pg/mL (5.0-100.0) H 07/12/18 06:20 Total Protein 5.8 gm/dL (6.0-8.3) L 07/11/18 04:55 Albumin 3.2 gm/dL (3.7-5.3) L 07/11/18 04:55 Globulin 2.6 gm/dL 07/11/18 04:55 Albumin/Globulin Ratio 1.2 (1.0-1.8) 07/11/18 04:55 Triglycerides 64 mg/dL (<150) 07/12/18 06:20 Cholesterol 132 mg/dL (<200) 07/12/18 06:20 LDL Cholesterol Direct 92 mg/dL (75-193) 07/12/18 06:20 HDL Cholesterol 37 mg/dL (23-92) 07/12/18 06:20 Carcinoembryonic Ag 4.1 ng/mL (0.0-4.7) 07/07/18 06:19 TSH 3.66 uIU/ml (0.34-5.60) 07/07/18 06:19 Urine Source CLEAN C 07/06/18 16:10 Urine Color YELLOW 07/06/18 16:10 Urine Clarity CLEAR (CLEAR) 07/06/18 16:10 Urine pH 6.0 (4.6 - 8.0) 07/06/18 16:10 Ur Specific [place] 1.025 (1.005-1.030) 07/06/18 16:10 Urine Protein TRACE mg/dL (NEGATIVE) 07/06/18 16:10 Urine Glucose (UA) NEGATIVE mg/dL (NEGATIVE) 07/06/18 16:10 Urine Ketones NEGATIVE mg/dL (NEGATIVE) 07/06/18 16:10 Urine Blood TRACE (NEGATIVE) 07/06/18 16:10 Urine Nitrate NEGATIVE (NEGATIVE) 07/06/18 16:10 Urine Bilirubin NEGATIVE (NEGATIVE) 07/06/18 16:10 Urine Urobilinogen 0.2 E.U./dL (0.2 - 1.0) 07/06/18 16:10 Ur Leukocyte Esterase NEGATIVE (NEGATIVE) 07/06/18 16:10 Urine RBC 2-5 /hpf (0-5) 07/06/18 16:10 Urine WBC 0-2 /hpf (0-5) 07/06/18 16:10 Ur Epithelial Cells FEW /lpf (FEW) 07/06/18 16:10 Urine Bacteria FEW /hpf (NONE SEEN) 07/06/18 16:10 Urine Mucus FEW /lpf (FEW) 07/06/18 16:10 - Physical Exam Vitals and I&O: Vital Signs Temp 98.2 F 07/12/18 09:00 Pulse 92 07/12/18 09:45 Resp 19 07/12/18 09:00 BP 157/90 07/12/18 09:45 Pulse Ox 97 07/12/18 09:00 Intake & Output 07/11/18 07/12/18 07/12/18 18:59 06:59 18:59 Intake Total 325.7 1437.817 48.333 Output Total 450 Balance 325.7 1437.817 -401.667 Weight (lbs) 80.059 kg Intake: Intake, IV Amount 325.7 1437.817 48.333 D5-0.45NS 1,000 ml @ 50 105 1091.667 48.333 mls/hr IV .Q20H [facility] Rx#: [id number] Nitroglycerin 50mg/D5W 220.7 346.15 Premix 50 mg In 250 ml @ Titrate IV TITR PRN Rx#: [id number] Output: Urine 450 Other: # Bowel Movements 0 Weight Source Bedscale Active Medications: Current Medications Acetaminophen (Tylenol) 650 mg PO Q4HR PRN PRN Reason: Fever > 101 OR MILD PAIN Stop: 09/05/18 09:25 Al Hydrox/Mg Hydrox/Simethicone (Maalox) 30 ml PO Q4HR PRN PRN Reason: GI DISTRESS Stop: 09/05/18 09:34 Aspirin (Aspirin Chewable) 81 mg PO DAILY [facility] Stop: 09/05/18 09:29 Last Admin: 07/12/18 09:24 Dose: Not Given Atorvastatin Calcium (Lipitor) 10 mg PO [facility]; Protocol Stop: 09/05/18 20:59 Last Admin: 07/11/18 22:07 Dose: Not Given Calcium Carbonate (Os-Kelechi) 500 mg PO DAILY [facility] Stop: 09/05/18 09:29 Last Admin: 07/12/18 09:24 Dose: Not Given Citalopram Hydrobromide (Celexa) 20 mg PO [facility]; Protocol Stop: 09/05/18 20:59 Last Admin: 07/11/18 22:07 Dose: Not Given Docusate Sodium (Colace) 250 mg PO DAILY [facility] Stop: 09/05/18 09:29 Last Admin: 07/12/18 09:24 Dose: Not Given Enoxaparin Sodium (Lovenox) 40 mg SUBQ Q12H [facility] Stop: 09/06/18 12:14 Last Admin: 07/12/18 01:24 Dose: 40 mg Ergocalciferol (Vitamin D2) 50,000 iu PO QSUN [facility] Stop: 09/06/18 08:59 Last Admin: 07/08/18 10:07 Dose: Not Given Dextrose/Sodium Chloride (D5-0.45ns) 1,000 mls @ 50 mls/hr IV .Q20H [facility] Stop: 09/04/18 23:29 Last Infusion: 07/12/18 07:34 Dose: 50 mls/hr Nitroglycerin/Dextrose (Nitroglycerin 50mg/Dextrose 5% Premix) 50 mg in 250 mls @ 0 mls/hr IV TITR PRN; Protocol PRN Reason: BP MAINTENANCE Stop: 09/08/18 14:32 Last Admin: 07/12/18 06:39 Dose: 60 mcg/min, 18 mls/hr Lorazepam (Ativan) 1 mg IVP Q4HR PRN; Protocol PRN Reason: Agitation Stop: 09/05/18 18:12 Last Admin: 07/12/18 09:27 Dose: 1 mg Magnesium Hydroxide (Milk Of Magnesia) 30 ml PO HS PRN PRN Reason: Constipation Stop: 09/05/18 09:18 Memantine (Namenda) 10 mg PO BID [facility] Stop: 09/05/18 09:29 Last Admin: 07/12/18 09:24 Dose: Not Given Meperidine HCl (Demerol) 25 mg IVP NOW PRN PRN Reason: post-op Stop: 09/08/18 11:33 Last Admin: 07/10/18 12:19 Dose: 25 mg Morphine Sulfate (Morphine) 1 mg IVP Q4HR PRN PRN Reason: Pain (Moderate) 4-7 Stop: 09/08/18 19:41 Last Admin: 07/12/18 02:03 Dose: 1 mg Multivitamins/Vitamin C (Theragran) 1 tab PO DAILY [facility] Stop: 09/06/18 08:59 Last Admin: 07/12/18 09:24 Dose: Not Given Mupirocin (Bactroban Oint) 1 appl NS BID [facility] Stop: 07/13/18 09:01 Last Admin: 07/12/18 09:31 Dose: 1 appl Quetiapine Fumarate (Seroquel) 25 mg PO HS [facility]; Protocol Stop: 09/05/18 20:59 Last Admin: 07/11/18 22:07 Dose: Not Given - Procedures Procedures: Procedures Procedure Code Date GROUP PSYCHOTHERAPY GZHZZZZ 11/25/16 SUPPLEMENT L COM CAROTID WITH SYNTH SUB, OPEN APPROACH [id number] 07/06/18 Assessment/Plan - Problem List Patient Problems: All Active Problems DYSURIA WITH FEVER AND WEAKNESS (Acute) Nutritional Asmnt/Malnutr-PDOC - Dietary Evaluation Malnutrition Findings (Please click <Entered> for more info): Nutritional Asmnt/Malnutrition Start: 07/11/18 15: 16 Text: Status: Complete Freq: Protocol: Document 07/11/18 15:16 LCHENG (Rec: 07/11/18 15:39 [email or web address] [email or web address]) Nutritional Asmnt/Malnutrition Patient General Information Nutritional Screening Moderate Risk Diagnosis general wekness, dizziness, fall Pertinent Medical Hx/Surgical Hx HTN, dyslipidemia, dementia, anxiety Subjective Information Pt seen resting in bed at time of visit, s/p left carotid patch graft angioplasty surgery day 1. Clear liquid diet started from lunch today. Pt was on regular diet before surgery, PO intake was 75-100 %. Current Diet Order/ Nutrition Support clear liquid Pertinent Medications os-kelechi, D5-0.45ns, colace, vit D2, theragran Pertinent Labs 07/11 BUN 28, Glucose 168, Ca 8.5, alb 3.2 07/10 BUN 29, Glucose 74, Ca 9 .3 Nutritional Hx/Data Height 1.6 m Height (Calculated Centimeters) 160.0 Current Weight (lbs) 80.286 kg Weight (Calculated Kilograms) 80.3 Weight (Calculated Grams) 90531.8 [place] Body Weight 115 Body Mass Index (BMI) 31.3 Weight Status Obese GI Symptoms GI Symptoms None Last BM 07/10 Difficult in: None Skin Integrity/Comment: intact Estimated Nutritional Goals BEE in Kcals: Adj wt of IBW Calories/Kcals/Kg 27-32 adj wt 59kg Kcals Calculated 9910-6645 Protein: Adj wt of IBW Protein g/k.2 Protein Calculated 70 Fluid: ml 1593-1888ml (1ml/kcal) Nutritional Problem 1. Problem Problem inadequate food intake Etiology increased nutrition needs Signs/Symptoms: s/p surgery, pt on clear liquid diet Malnutrition Alert Is there a minimum of two criteria No selected? Query Text:Check all the applicable criteria. A minimum of two criteria are recommended for diagnosis of either severe or non-severe malnutrition. Malnutrition Related to Morbid Obesity Malnutrition related to morbid obesity No Intervention/Recommendation Comments 1. Continue with clear liquid diet as ordered. Add Ensure clear for extra kcal/protein per protocol. MD to advance diet as tolerated. 2. Monitor PO intake, wt, labs and skin integrity 3. F/U as high risk in 2-3 days, 07/13-07/14 Expected Outcomes/Goals Expected Outcomes/Goals 1. PO intake >90% with supplement TID. Diet advanced in 2-3 days when medically appropriate. 2. Wt stability, skin to remain intact, labs to approach WNL.
[2018-07-12 11:42] LABS: BASOPHIL 1 % (0-3); EOSINOPHIL 2 % (0-5); LYMPHOCYTE 5 % (20-50); MONOCYTE 11 % (2-10); NEUTROPHILS 81 % (40-80); PLATELET ESTIMATE ADEQUATE (NORMAL)
[2018-07-12] MEDS: Atorvastatin Calcium 10 MG TAB PO SCH (21:38)
[2018-07-13] MEDS: Enoxaparin 40 mg/0.4 mL 0.4mL Syr SUBQ SCH ×2 (01:06→12:42)
[2018-07-13] MEDS: D5-0.45NS 1,000 ML IV SCH (01:07)
[2018-07-13 04:41] LABS: % BASOPHILS 0.8 % (0.0-2.0); % EOSINOPHILS 1.3 % (0.0-5.0); % LYMPHOCYTES 6.3 % (20.0-50.0); % MONOCYTES 12.5 % (2.0-10.0); % NEUTROPHILS 79.1 % (40.0-80.0); BASOPHILE ABSOLUTE 0.1 Th/cumm (0-0.2); EOSINOPHILE ABSOLUTE 0.1 Th/cmm (0.1-0.4); HEMATOCRIT 29.2 % (41.0-60); HEMOGLOBIN 9.9 gm/dL (12-16); LYMPHOCYTE ABSOLUTE 0.5 Th/cmm (1.5-3.0); MEAN CELL VOLUME 87.2 fl (81-100); MEAN CORPUSCULAR HEMOGLOBIN 29.6 pg (27.0-31.0); MEAN CORPUSCULAR HGB CONC 33.9 pg (28.0-36.0); MEAN PLATELET VOLUME 8.5 fl; NEUTROPHILE ABSOLUTE 6.4 Th/cmm (1.8-8.0); PLATELET COUNT 169 Th/cmm (150-400); RED BLOOD COUNT 3.35 Mil/cmm (3.80-5.20); RED CELL DISTRIBUTION WIDTH 12.1 % (11.5-20.0); WHITE BLOOD COUNT 8.1 Th/cmm (4.8-10.8)
[2018-07-13] MEDS: Morphine Sulfate 2 mg/mL 1mL Syr IVP PRN (05:08)
[2018-07-13 05:27] LABS: ANION GAP 10.9 (7.0-16.0); BUN - UREA NITROGEN 11 mg/dL (7-25); CALCIUM SERUM 8.9 mg/dL (8.6-10.3); CARBON DIOXIDE 26.4 mEq/L (21.0-31.0); CHLORIDE 105 mEq/L (98-107); CREATININE - SERUM 0.6 mg/dL (0.6-1.2); GLUCOSE 136 mg/dL (70-105); POTASSIUM SERUM 3.3 mEq/L (3.5-5.1); SODIUM SERUM 139 mEq/L (136-145)
[2018-07-13 06:26] LABS: BAND NEUTROPHILE 3 % (0-10); EOSINOPHIL 4 % (0-5); LYMPHOCYTE 3 % (20-50); MONOCYTE 10 % (2-10); NEUTROPHILS 80 % (40-80)
[2018-07-13 06:27] LABS: PLATELET ESTIMATE ADEQUATE (NORMAL)
[2018-07-13] MEDS ORDERED: KCL 20mEq/100mL Premix 20 MEQ/100 ML PIGGYBACK IV ONE ×2 (06:40→08:03)
--- NOTE | 2018-07-13 08:37 | Internal Medicine Prog Note ---
Internal Medicine Subjective - Subjective Patient seen and examined:: chart reviewed Patient is:: awake, confused, other (doing better ) Internal Medicine Objective - Results Result Diagrams: 07/13/18 04:10 07/13/18 04:10 Recent Labs: Laboratory Last Values WBC 8.1 Th/cmm (4.8-10.8) 07/13/18 04:10 RBC 3.35 Mil/cmm (3.80-5.20) L 07/13/18 04:10 Hgb 9.9 gm/dL (12-16) L 07/13/18 04:10 Hct 29.2 % (41.0-60) L 07/13/18 04:10 MCV 87.2 fl (81-100) 07/13/18 04:10 MCH 29.6 pg (27.0-31.0) 07/13/18 04:10 MCHC Differential 33.9 pg (28.0-36.0) 07/13/18 04:10 RDW 12.1 % (11.5-20.0) 07/13/18 04:10 Plt Count 169 Th/cmm (150-400) 07/13/18 04:10 MPV 8.5 fl 07/13/18 04:10 Add Manual Diff YES 07/12/18 06:20 Neutrophils % 79.1 % (40.0-80.0) 07/13/18 04:10 Band Neutrophils % 3 % (0-10) 07/13/18 04:10 Lymphocytes % 6.3 % (20.0-50.0) L 07/13/18 04:10 Monocytes % 12.5 % (2.0-10.0) H 07/13/18 04:10 Eosinophils % 1.3 % (0.0-5.0) 07/13/18 04:10 Basophils % 0.8 % (0.0-2.0) 07/13/18 04:10 Neutrophils (Manual) 80 % (40-80) 07/13/18 04:10 Lymphocytes 3 % (20-50) L 07/13/18 04:10 Monocytes 10 % (2-10) 07/13/18 04:10 Eosinophils 4 % (0-5) 07/13/18 04:10 Basophils 1 % (0-3) 07/12/18 06:20 Platelet Estimate ADEQUATE (NORMAL) 07/13/18 04:10 PT 9.9 SECONDS (9.5-11.5) 07/10/18 05:55 INR 0.95 (0.5-1.4) 07/10/18 05:55 PTT (Actin FS) 26.0 SECONDS (26.0-38.0) 07/10/18 05:55 Sodium 139 mEq/L (136-145) 07/13/18 04:10 Potassium 3.3 mEq/L (3.5-5.1) L 07/13/18 04:10 Chloride 105 mEq/L (98-107) 07/13/18 04:10 Carbon Dioxide 26.4 mEq/L (21.0-31.0) 07/13/18 04:10 Anion Gap 10.9 (7.0-16.0) 07/13/18 04:10 BUN 11 mg/dL (7-25) 07/13/18 04:10 Creatinine 0.6 mg/dL (0.6-1.2) 07/13/18 04:10 Est GFR ( Amer) TNP 07/13/18 04:10 Est GFR (Non-Af Amer) TNP 07/13/18 04:10 BUN/Creatinine Ratio 18.3 07/13/18 04:10 Glucose 136 mg/dL (70-105) H 07/13/18 04:10 POC Glucose 59 MG/DL (70 - 105) L 07/10/18 07:39 Calcium 8.9 mg/dL (8.6-10.3) 07/13/18 04:10 Phosphorus 3.2 mg/dL (2.5-5.0) 07/06/18 16:04 Magnesium 2.0 mg/dL (1.9-2.7) 07/11/18 04:55 Total Bilirubin 0.6 mg/dL (0.3-1.0) 07/11/18 04:55 AST 17 U/L (13-39) 07/11/18 04:55 ALT 12 U/L (7-52) 07/11/18 04:55 Alkaline Phosphatase 51 U/L (34-104) 07/11/18 04:55 B-Natriuretic Peptide 190.0 pg/mL (5.0-100.0) H 07/12/18 06:20 Total Protein 5.8 gm/dL (6.0-8.3) L 07/11/18 04:55 Albumin 3.2 gm/dL (3.7-5.3) L 07/11/18 04:55 Globulin 2.6 gm/dL 07/11/18 04:55 Albumin/Globulin Ratio 1.2 (1.0-1.8) 07/11/18 04:55 Triglycerides 64 mg/dL (<150) 07/12/18 06:20 Cholesterol 132 mg/dL (<200) 07/12/18 06:20 LDL Cholesterol Direct 92 mg/dL (75-193) 07/12/18 06:20 HDL Cholesterol 37 mg/dL (23-92) 07/12/18 06:20 Carcinoembryonic Ag 4.1 ng/mL (0.0-4.7) 07/07/18 06:19 TSH 3.66 uIU/ml (0.34-5.60) 07/07/18 06:19 Urine Source CLEAN C 07/06/18 16:10 Urine Color YELLOW 07/06/18 16:10 Urine Clarity CLEAR (CLEAR) 07/06/18 16:10 Urine pH 6.0 (4.6 - 8.0) 07/06/18 16:10 Ur Specific [place] 1.025 (1.005-1.030) 07/06/18 16:10 Urine Protein TRACE mg/dL (NEGATIVE) 07/06/18 16:10 Urine Glucose (UA) NEGATIVE mg/dL (NEGATIVE) 07/06/18 16:10 Urine Ketones NEGATIVE mg/dL (NEGATIVE) 07/06/18 16:10 Urine Blood TRACE (NEGATIVE) 07/06/18 16:10 Urine Nitrate NEGATIVE (NEGATIVE) 07/06/18 16:10 Urine Bilirubin NEGATIVE (NEGATIVE) 07/06/18 16:10 Urine Urobilinogen 0.2 E.U./dL (0.2 - 1.0) 07/06/18 16:10 Ur Leukocyte Esterase NEGATIVE (NEGATIVE) 07/06/18 16:10 Urine RBC 2-5 /hpf (0-5) 07/06/18 16:10 Urine WBC 0-2 /hpf (0-5) 07/06/18 16:10 Ur Epithelial Cells FEW /lpf (FEW) 07/06/18 16:10 Urine Bacteria FEW /hpf (NONE SEEN) 07/06/18 16:10 Urine Mucus FEW /lpf (FEW) 07/06/18 16:10 - Physical Exam Vitals and I&O: Vital Signs Temp 98.7 F 07/13/18 06:00 Pulse 99 07/13/18 06:50 Resp 18 07/13/18 06:50 BP 106/57 07/13/18 06:45 Pulse Ox 99 07/13/18 06:50 Intake & Output 07/12/18 07/13/18 07/13/18 18:59 06:59 18:59 Intake Total 879.423 6564.759 5.25 Output Total 450 1400 600 Balance -55.684 -373.241 -594.75 Weight (lbs) 80.059 kg 79.832 kg 81.193 kg Intake: Intake, IV Amount 440.109 9379.759 5.25 D5-0.45NS 1,000 ml @ 50 304.166 900.834 mls/hr IV .Q20H [facility] Rx#: [id number] Nitroglycerin 50mg/D5W 90.15 125.925 5.25 Premix 50 mg In 250 ml @ Titrate IV TITR PRN Rx#: [id number] Output: Urine 450 1400 600 Other: # Bowel Movements 0 0 Weight Source Bedscale Bedscale Bedscale Active Medications: Current Medications Acetaminophen (Tylenol) 650 mg PO Q4HR PRN PRN Reason: Fever > 101 OR MILD PAIN Stop: 09/05/18 09:25 Al Hydrox/Mg Hydrox/Simethicone (Maalox) 30 ml PO Q4HR PRN PRN Reason: GI DISTRESS Stop: 09/05/18 09:34 Aspirin (Aspirin Chewable) 81 mg PO DAILY [facility] Stop: 09/05/18 09:29 Last Admin: 07/12/18 09:24 Dose: Not Given Atorvastatin Calcium (Lipitor) 10 mg PO HS [facility]; Protocol Stop: 09/05/18 20:59 Last Admin: 07/12/18 21:38 Dose: Not Given Calcium Carbonate (Os-Kelechi) 500 mg PO DAILY [facility] Stop: 09/05/18 09:29 Last Admin: 07/12/18 09:24 Dose: Not Given Citalopram Hydrobromide (Celexa) 20 mg PO HS [facility]; Protocol Stop: 09/05/18 20:59 Last Admin: 07/12/18 21:38 Dose: Not Given Docusate Sodium (Colace) 250 mg PO DAILY [facility] Stop: 09/05/18 09:29 Last Admin: 07/12/18 09:24 Dose: Not Given Enalaprilat (Vasotec) 1.25 mg IVP Q6HR PRN PRN Reason: BP MAINTENANCE (PER PROTOCOL) Stop: 09/11/18 05:59 Enoxaparin Sodium (Lovenox) 40 mg SUBQ Q12H [facility] Stop: 09/06/18 12:14 Last Admin: 07/13/18 01:06 Dose: 40 mg Ergocalciferol (Vitamin D2) 50,000 iu PO QSUN [facility] Stop: 09/06/18 08:59 Last Admin: 07/08/18 10:07 Dose: Not Given Hydralazine HCl (Apresoline 20 Mg/Ml) 10 mg IV Q6HR PRN PRN Reason: BP MAINTENANCE (PER PROTOCOL) Stop: 09/11/18 00:45 Dextrose/Sodium Chloride (D5-0.45ns) 1,000 mls @ 50 mls/hr IV .Q20H [facility] Stop: 09/04/18 23:29 Last Infusion: 07/13/18 06:42 Dose: 50 mls/hr Nitroglycerin/Dextrose (Nitroglycerin 50mg/Dextrose 5% Premix) 50 mg in 250 mls @ 0 mls/hr IV TITR PRN; Protocol PRN Reason: BP MAINTENANCE Stop: 09/08/18 14:32 Last Titration: 07/13/18 07:52 Dose: 0 mcg/min, 0 mls/hr Potassium Chloride (Potassium Chloride) 20 meq in 100 mls @ 50 mls/hr IV X1 ONE Stop: 07/13/18 08:39 Lorazepam (Ativan) 1 mg IVP Q4HR PRN; Protocol PRN Reason: Agitation Stop: 09/05/18 18:12 Last Admin: 07/13/18 02:49 Dose: 1 mg Magnesium Hydroxide (Milk Of Magnesia) 30 ml PO HS PRN PRN Reason: Constipation Stop: 09/05/18 09:18 Memantine (Namenda) 10 mg PO BID [facility] Stop: 09/05/18 09:29 Last Admin: 07/12/18 17:54 Dose: Not Given Meperidine HCl (Demerol) 25 mg IVP NOW PRN PRN Reason: post-op Stop: 09/08/18 11:33 Last Admin: 07/10/18 12:19 Dose: 25 mg Morphine Sulfate (Morphine) 1 mg IVP Q4HR PRN PRN Reason: Pain (Moderate) 4-7 Stop: 09/08/18 19:41 Last Admin: 07/13/18 05:08 Dose: 1 mg Multivitamins/Vitamin C (Theragran) 1 tab PO DAILY [facility] Stop: 09/06/18 08:59 Last Admin: 07/12/18 09:24 Dose: Not Given Mupirocin (Bactroban Oint) 1 appl NS BID [facility] Stop: 07/13/18 09:01 Last Admin: 07/12/18 17:53 Dose: 1 appl Quetiapine Fumarate (Seroquel) 25 mg PO HS [facility]; Protocol Stop: 09/05/18 20:59 Last Admin: 07/12/18 21:38 Dose: Not Given General: weak HEENT: NC/AT Neck: Supple Lungs: CTAB Cardiovascular: Normal S1, Normal S2 Abdomen: soft Extremities: clear Neurological: muscle weakness - Procedures Procedures: Procedures Procedure Code Date GROUP PSYCHOTHERAPY GZHZZZZ 11/25/16 SUPPLEMENT L COM CAROTID WITH SYNTH SUB, OPEN APPROACH [id number] 07/06/18 Internal Medicine Assmt/Plan - Assessment Assessment: s/p left graft angioplasty dysuria fever gen weakness acute - Plan Plan: icu monitoring pain mgmt cpm Nutritional Asmnt/Malnutr-PDOC - Dietary Evaluation Malnutrition Findings (Please click <Entered> for more info): Nutritional Asmnt/Malnutrition Start: 07/11/18 15: 16 Text: Status: Complete Freq: Protocol: Document 07/11/18 15:16 LCHENG (Rec: 07/11/18 15:39 [email or web address]) Nutritional Asmnt/Malnutrition Patient General Information Nutritional Screening Moderate Risk Diagnosis general wekness, dizziness, fall Pertinent Medical Hx/Surgical Hx HTN, dyslipidemia, dementia, anxiety Subjective Information Pt seen resting in bed at time of visit, s/p left carotid patch graft angioplasty surgery day 1. Clear liquid diet started from lunch today. Pt was on regular diet before surgery, PO intake was 75-100 %. Current Diet Order/ Nutrition Support clear liquid Pertinent Medications os-kelechi, D5-0.45ns, colace, vit D2, theragran Pertinent Labs 07/11 BUN 28, Glucose 168, Ca 8.5, alb 3.2 07/10 BUN 29, Glucose 74, Ca 9 .3 Nutritional Hx/Data Height 1.6 m Height (Calculated Centimeters) 160.0 Current Weight (lbs) 80.286 kg Weight (Calculated Kilograms) 80.3 Weight (Calculated Grams) 34826.8 [place] Body Weight 115 Body Mass Index (BMI) 31.3 Weight Status Obese GI Symptoms GI Symptoms None Last BM 07/10 Difficult in: None Skin Integrity/Comment: intact Estimated Nutritional Goals BEE in Kcals: Adj wt of IBW Calories/Kcals/Kg 27-32 adj wt 59kg Kcals Calculated 1296-1635 Protein: Adj wt of IBW Protein g/k.2 Protein Calculated 70 Fluid: ml 1593-1888ml (1ml/kcal) Nutritional Problem 1. Problem Problem inadequate food intake Etiology increased nutrition needs Signs/Symptoms: s/p surgery, pt on clear liquid diet Malnutrition Alert Is there a minimum of two criteria No selected? Query Text:Check all the applicable criteria. A minimum of two criteria are recommended for diagnosis of either severe or non-severe malnutrition. Malnutrition Related to Morbid Obesity Malnutrition related to morbid obesity No Intervention/Recommendation Comments 1. Continue with clear liquid diet as ordered. Add Ensure clear for extra kcal/protein per protocol. MD to advance diet as tolerated. 2. Monitor PO intake, wt, labs and skin integrity 3. F/U as high risk in 2-3 days, 07/13-07/14 Expected Outcomes/Goals Expected Outcomes/Goals 1. PO intake >90% with supplement TID. Diet advanced in 2-3 days when medically appropriate. 2. Wt stability, skin to remain intact, labs to approach WNL.
[2018-07-13] MEDS: Nitroglycerin 50mg/D5W Premix 50 MG/250 ML INFUS..BTL IV PRN (09:21)
--- NOTE | 2018-07-13 09:45 | Diagnostic Imaging Report ---
CHEST X-RAY: AP view INDICATION: NG tube placement COMPARISON: 07/10/2018 FINDINGS: NG tube is in the stomach. Slight decrease in interstitial lung markings are noted. Cardiomegaly is noted. IMPRESSION: NG tube in the stomach. Slight decrease in interstitial lung markings.
[2018-07-13] MEDS: Aspirin 81mg Chewable Tab PO SCH (10:26)
[2018-07-13] MEDS: Multivitamin Tab PO SCH (10:26)
--- NOTE | 2018-07-13 10:29 | General Progress Note ---
Subjective - Review of Systems Service Date: 07/13/18 Events since last encounter: 07/13/18 BP remains high, NGT introduced for oral BP meds patient not getting now still on Nitro drip no neuro deficit Objective - Results Result Diagrams: 07/13/18 04:10 07/13/18 04:10 Recent Labs: Laboratory Last Values WBC 8.1 Th/cmm (4.8-10.8) 07/13/18 04:10 RBC 3.35 Mil/cmm (3.80-5.20) L 07/13/18 04:10 Hgb 9.9 gm/dL (12-16) L 07/13/18 04:10 Hct 29.2 % (41.0-60) L 07/13/18 04:10 MCV 87.2 fl (81-100) 07/13/18 04:10 MCH 29.6 pg (27.0-31.0) 07/13/18 04:10 MCHC Differential 33.9 pg (28.0-36.0) 07/13/18 04:10 RDW 12.1 % (11.5-20.0) 07/13/18 04:10 Plt Count 169 Th/cmm (150-400) 07/13/18 04:10 MPV 8.5 fl 07/13/18 04:10 Add Manual Diff YES 07/12/18 06:20 Neutrophils % 79.1 % (40.0-80.0) 07/13/18 04:10 Band Neutrophils % 3 % (0-10) 07/13/18 04:10 Lymphocytes % 6.3 % (20.0-50.0) L 07/13/18 04:10 Monocytes % 12.5 % (2.0-10.0) H 07/13/18 04:10 Eosinophils % 1.3 % (0.0-5.0) 07/13/18 04:10 Basophils % 0.8 % (0.0-2.0) 07/13/18 04:10 Neutrophils (Manual) 80 % (40-80) 07/13/18 04:10 Lymphocytes 3 % (20-50) L 07/13/18 04:10 Monocytes 10 % (2-10) 07/13/18 04:10 Eosinophils 4 % (0-5) 07/13/18 04:10 Basophils 1 % (0-3) 07/12/18 06:20 Platelet Estimate ADEQUATE (NORMAL) 07/13/18 04:10 PT 9.9 SECONDS (9.5-11.5) 07/10/18 05:55 INR 0.95 (0.5-1.4) 07/10/18 05:55 PTT (Actin FS) 26.0 SECONDS (26.0-38.0) 07/10/18 05:55 Sodium 139 mEq/L (136-145) 07/13/18 04:10 Potassium 3.3 mEq/L (3.5-5.1) L 07/13/18 04:10 Chloride 105 mEq/L (98-107) 07/13/18 04:10 Carbon Dioxide 26.4 mEq/L (21.0-31.0) 07/13/18 04:10 Anion Gap 10.9 (7.0-16.0) 07/13/18 04:10 BUN 11 mg/dL (7-25) 07/13/18 04:10 Creatinine 0.6 mg/dL (0.6-1.2) 07/13/18 04:10 Est GFR ( Amer) TNP 07/13/18 04:10 Est GFR (Non-Af Amer) TNP 07/13/18 04:10 BUN/Creatinine Ratio 18.3 07/13/18 04:10 Glucose 136 mg/dL (70-105) H 07/13/18 04:10 POC Glucose 59 MG/DL (70 - 105) L 07/10/18 07:39 Calcium 8.9 mg/dL (8.6-10.3) 07/13/18 04:10 Phosphorus 3.2 mg/dL (2.5-5.0) 07/06/18 16:04 Magnesium 2.0 mg/dL (1.9-2.7) 07/11/18 04:55 Total Bilirubin 0.6 mg/dL (0.3-1.0) 07/11/18 04:55 AST 17 U/L (13-39) 07/11/18 04:55 ALT 12 U/L (7-52) 07/11/18 04:55 Alkaline Phosphatase 51 U/L (34-104) 07/11/18 04:55 B-Natriuretic Peptide 190.0 pg/mL (5.0-100.0) H 07/12/18 06:20 Total Protein 5.8 gm/dL (6.0-8.3) L 07/11/18 04:55 Albumin 3.2 gm/dL (3.7-5.3) L 07/11/18 04:55 Globulin 2.6 gm/dL 07/11/18 04:55 Albumin/Globulin Ratio 1.2 (1.0-1.8) 07/11/18 04:55 Triglycerides 64 mg/dL (<150) 07/12/18 06:20 Cholesterol 132 mg/dL (<200) 07/12/18 06:20 LDL Cholesterol Direct 92 mg/dL (75-193) 07/12/18 06:20 HDL Cholesterol 37 mg/dL (23-92) 07/12/18 06:20 Carcinoembryonic Ag 4.1 ng/mL (0.0-4.7) 07/07/18 06:19 TSH 3.66 uIU/ml (0.34-5.60) 07/07/18 06:19 Urine Source CLEAN C 07/06/18 16:10 Urine Color YELLOW 07/06/18 16:10 Urine Clarity CLEAR (CLEAR) 07/06/18 16:10 Urine pH 6.0 (4.6 - 8.0) 07/06/18 16:10 Ur Specific [place] 1.025 (1.005-1.030) 07/06/18 16:10 Urine Protein TRACE mg/dL (NEGATIVE) 07/06/18 16:10 Urine Glucose (UA) NEGATIVE mg/dL (NEGATIVE) 07/06/18 16:10 Urine Ketones NEGATIVE mg/dL (NEGATIVE) 07/06/18 16:10 Urine Blood TRACE (NEGATIVE) 07/06/18 16:10 Urine Nitrate NEGATIVE (NEGATIVE) 07/06/18 16:10 Urine Bilirubin NEGATIVE (NEGATIVE) 07/06/18 16:10 Urine Urobilinogen 0.2 E.U./dL (0.2 - 1.0) 07/06/18 16:10 Ur Leukocyte Esterase NEGATIVE (NEGATIVE) 07/06/18 16:10 Urine RBC 2-5 /hpf (0-5) 07/06/18 16:10 Urine WBC 0-2 /hpf (0-5) 07/06/18 16:10 Ur Epithelial Cells FEW /lpf (FEW) 07/06/18 16:10 Urine Bacteria FEW /hpf (NONE SEEN) 07/06/18 16:10 Urine Mucus FEW /lpf (FEW) 07/06/18 16:10 - Physical Exam Vitals and I&O: Vital Signs Temp 98.7 F 07/13/18 06:00 Pulse 99 07/13/18 06:50 Resp 18 07/13/18 06:50 BP 106/57 07/13/18 06:45 Pulse Ox 99 07/13/18 06:50 Intake & Output 07/12/18 07/13/18 07/13/18 18:59 06:59 18:59 Intake Total 963.949 5543.759 15.55 Output Total 450 1400 600 Balance -55.684 -373.241 -584.45 Weight (lbs) 80.059 kg 79.832 kg 81.193 kg Intake: Intake, IV Amount 821.221 0668.759 15.55 D5-0.45NS 1,000 ml @ 50 304.166 900.834 mls/hr IV .Q20H [facility] Rx#: [id number] Nitroglycerin 50mg/D5W 90.15 125.925 15.55 Premix 50 mg In 250 ml @ Titrate IV TITR PRN Rx#: [id number] Output: Urine 450 1400 600 Other: # Bowel Movements 0 0 Weight Source Bedscale Bedscale Bedscale Active Medications: Current Medications Acetaminophen (Tylenol) 650 mg PO Q4HR PRN PRN Reason: Fever > 101 OR MILD PAIN Stop: 09/05/18 09:25 Al Hydrox/Mg Hydrox/Simethicone (Maalox) 30 ml PO Q4HR PRN PRN Reason: GI DISTRESS Stop: 09/05/18 09:34 Aspirin (Aspirin Chewable) 81 mg PO DAILY [facility] Stop: 09/05/18 09:29 Last Admin: 07/12/18 09:24 Dose: Not Given Atorvastatin Calcium (Lipitor) 10 mg PO HS [facility]; Protocol Stop: 09/05/18 20:59 Last Admin: 07/12/18 21:38 Dose: Not Given Calcium Carbonate (Os-Vern) 500 mg PO DAILY [facility] Stop: 09/05/18 09:29 Last Admin: 07/12/18 09:24 Dose: Not Given Citalopram Hydrobromide (Celexa) 20 mg PO HS [facility]; Protocol Stop: 09/05/18 20:59 Last Admin: 07/12/18 21:38 Dose: Not Given Docusate Sodium (Colace) 250 mg PO DAILY [facility] Stop: 09/05/18 09:29 Last Admin: 07/12/18 09:24 Dose: Not Given Enalaprilat (Vasotec) 1.25 mg IVP Q6HR PRN PRN Reason: BP MAINTENANCE (PER PROTOCOL) Stop: 09/11/18 05:59 Enoxaparin Sodium (Lovenox) 40 mg SUBQ Q12H [facility] Stop: 09/06/18 12:14 Last Admin: 07/13/18 01:06 Dose: 40 mg Ergocalciferol (Vitamin D2) 50,000 iu PO QSUN [facility] Stop: 09/06/18 08:59 Last Admin: 07/08/18 10:07 Dose: Not Given Hydralazine HCl (Apresoline 20 Mg/Ml) 10 mg IV Q6HR PRN PRN Reason: BP MAINTENANCE (PER PROTOCOL) Stop: 09/11/18 00:45 Dextrose/Sodium Chloride (D5-0.45ns) 1,000 mls @ 50 mls/hr IV .Q20H [facility] Stop: 09/04/18 23:29 Last Infusion: 07/13/18 06:42 Dose: 50 mls/hr Nitroglycerin/Dextrose (Nitroglycerin 50mg/Dextrose 5% Premix) 50 mg in 250 mls @ 0 mls/hr IV TITR PRN; Protocol PRN Reason: BP MAINTENANCE Stop: 09/08/18 14:32 Last Titration: 07/13/18 10:13 Dose: 80 mcg/min, 24 mls/hr Lorazepam (Ativan) 1 mg IVP Q4HR PRN; Protocol PRN Reason: Agitation Stop: 09/05/18 18:12 Last Admin: 07/13/18 08:53 Dose: 1 mg Magnesium Hydroxide (Milk Of Magnesia) 30 ml PO HS PRN PRN Reason: Constipation Stop: 09/05/18 09:18 Memantine (Namenda) 10 mg PO BID [facility] Stop: 09/05/18 09:29 Last Admin: 07/12/18 17:54 Dose: Not Given Meperidine HCl (Demerol) 25 mg IVP NOW PRN PRN Reason: post-op Stop: 09/08/18 11:33 Last Admin: 07/10/18 12:19 Dose: 25 mg Morphine Sulfate (Morphine) 1 mg IVP Q4HR PRN PRN Reason: Pain (Moderate) 4-7 Stop: 09/08/18 19:41 Last Admin: 07/13/18 05:08 Dose: 1 mg Multivitamins/Vitamin C (Theragran) 1 tab PO DAILY [facility] Stop: 09/06/18 08:59 Last Admin: 07/12/18 09:24 Dose: Not Given Quetiapine Fumarate (Seroquel) 25 mg PO HS [facility]; Protocol Stop: 09/05/18 20:59 Last Admin: 07/12/18 21:38 Dose: Not Given - Procedures Procedures: Procedures Procedure Code Date GROUP PSYCHOTHERAPY GZHZZZZ 11/25/16 SUPPLEMENT L COM CAROTID WITH SYNTH SUB, OPEN APPROACH [id number] 07/06/18 Assessment/Plan - Problem List Patient Problems: All Active Problems DYSURIA WITH FEVER AND WEAKNESS (Acute) Nutritional Asmnt/Malnutr-PDOC - Dietary Evaluation Malnutrition Findings (Please click <Entered> for more info): Nutritional Asmnt/Malnutrition Start: 07/11/18 15: 16 Text: Status: Complete Freq: Protocol: Document 07/11/18 15:16 LCHENG (Rec: 07/11/18 15:39 LCHENG [email or web address]) Nutritional Asmnt/Malnutrition Patient General Information Nutritional Screening Moderate Risk Diagnosis general wekness, dizziness, fall Pertinent Medical Hx/Surgical Hx HTN, dyslipidemia, dementia, anxiety Subjective Information Pt seen resting in bed at time of visit, s/p left carotid patch graft angioplasty surgery day 1. Clear liquid diet started from lunch today. Pt was on regular diet before surgery, PO intake was 75-100 %. Current Diet Order/ Nutrition Support clear liquid Pertinent Medications os-vern, D5-0.45ns, colace, vit D2, theragran Pertinent Labs 07/11 BUN 28, Glucose 168, Ca 8.5, alb 3.2 07/10 BUN 29, Glucose 74, Ca 9 .3 Nutritional Hx/Data Height 1.6 m Height (Calculated Centimeters) 160.0 Current Weight (lbs) 80.286 kg Weight (Calculated Kilograms) 80.3 Weight (Calculated Grams) 85892.8 [place] Body Weight 115 Body Mass Index (BMI) 31.3 Weight Status Obese GI Symptoms GI Symptoms None Last BM 07/10 Difficult in: None Skin Integrity/Comment: intact Estimated Nutritional Goals BEE in Kcals: Adj wt of IBW Calories/Kcals/Kg 27-32 adj wt 59kg Kcals Calculated 0762-2324 Protein: Adj wt of IBW Protein g/k.2 Protein Calculated 70 Fluid: ml 1593-1888ml (1ml/kcal) Nutritional Problem 1. Problem Problem inadequate food intake Etiology increased nutrition needs Signs/Symptoms: s/p surgery, pt on clear liquid diet Malnutrition Alert Is there a minimum of two criteria No selected? Query Text:Check all the applicable criteria. A minimum of two criteria are recommended for diagnosis of either severe or non-severe malnutrition. Malnutrition Related to Morbid Obesity Malnutrition related to morbid obesity No Intervention/Recommendation Comments 1. Continue with clear liquid diet as ordered. Add Ensure clear for extra kcal/protein per protocol. MD to advance diet as tolerated. 2. Monitor PO intake, wt, labs and skin integrity 3. F/U as high risk in 2-3 days, 07/13-07/14 Expected Outcomes/Goals Expected Outcomes/Goals 1. PO intake >90% with supplement TID. Diet advanced in 2-3 days when medically appropriate. 2. Wt stability, skin to remain intact, labs to approach WNL.
[2018-07-13] MEDS: Atorvastatin Calcium 10 MG TAB PO SCH (21:14)
[2018-07-14] MEDS ORDERED: Norepinephrine 4 mg/4mL Vial IV ONE (00:43)
[2018-07-14] MEDS: Enoxaparin 40 mg/0.4 mL 0.4mL Syr SUBQ SCH ×2 (00:45→12:28)
[2018-07-14] MEDS: Multivitamin Tab PO SCH (08:06)
[2018-07-14] MEDS: Aspirin 81mg Chewable Tab PO SCH (08:06)
--- NOTE | 2018-07-14 10:36 | General Progress Note ---
Subjective - Review of Systems Events since last encounter: 07/14/18 off Nitro start clear liquids more alert Objective - Results Result Diagrams: 07/13/18 04:10 07/13/18 04:10 Recent Labs: Laboratory Last Values WBC 8.1 Th/cmm (4.8-10.8) 07/13/18 04:10 RBC 3.35 Mil/cmm (3.80-5.20) L 07/13/18 04:10 Hgb 9.9 gm/dL (12-16) L 07/13/18 04:10 Hct 29.2 % (41.0-60) L 07/13/18 04:10 MCV 87.2 fl (81-100) 07/13/18 04:10 MCH 29.6 pg (27.0-31.0) 07/13/18 04:10 MCHC Differential 33.9 pg (28.0-36.0) 07/13/18 04:10 RDW 12.1 % (11.5-20.0) 07/13/18 04:10 Plt Count 169 Th/cmm (150-400) 07/13/18 04:10 MPV 8.5 fl 07/13/18 04:10 Add Manual Diff YES 07/12/18 06:20 Neutrophils % 79.1 % (40.0-80.0) 07/13/18 04:10 Band Neutrophils % 3 % (0-10) 07/13/18 04:10 Lymphocytes % 6.3 % (20.0-50.0) L 07/13/18 04:10 Monocytes % 12.5 % (2.0-10.0) H 07/13/18 04:10 Eosinophils % 1.3 % (0.0-5.0) 07/13/18 04:10 Basophils % 0.8 % (0.0-2.0) 07/13/18 04:10 Neutrophils (Manual) 80 % (40-80) 07/13/18 04:10 Lymphocytes 3 % (20-50) L 07/13/18 04:10 Monocytes 10 % (2-10) 07/13/18 04:10 Eosinophils 4 % (0-5) 07/13/18 04:10 Basophils 1 % (0-3) 07/12/18 06:20 Platelet Estimate ADEQUATE (NORMAL) 07/13/18 04:10 PT 9.9 SECONDS (9.5-11.5) 07/10/18 05:55 INR 0.95 (0.5-1.4) 07/10/18 05:55 PTT (Actin FS) 26.0 SECONDS (26.0-38.0) 07/10/18 05:55 Sodium 139 mEq/L (136-145) 07/13/18 04:10 Potassium 3.3 mEq/L (3.5-5.1) L 07/13/18 04:10 Chloride 105 mEq/L (98-107) 07/13/18 04:10 Carbon Dioxide 26.4 mEq/L (21.0-31.0) 07/13/18 04:10 Anion Gap 10.9 (7.0-16.0) 07/13/18 04:10 BUN 11 mg/dL (7-25) 07/13/18 04:10 Creatinine 0.6 mg/dL (0.6-1.2) 07/13/18 04:10 Est GFR ( Amer) TNP 07/13/18 04:10 Est GFR (Non-Af Amer) TNP 07/13/18 04:10 BUN/Creatinine Ratio 18.3 07/13/18 04:10 Glucose 136 mg/dL (70-105) H 07/13/18 04:10 POC Glucose 59 MG/DL (70 - 105) L 07/10/18 07:39 Calcium 8.9 mg/dL (8.6-10.3) 07/13/18 04:10 Phosphorus 3.2 mg/dL (2.5-5.0) 07/06/18 16:04 Magnesium 2.0 mg/dL (1.9-2.7) 07/11/18 04:55 Total Bilirubin 0.6 mg/dL (0.3-1.0) 07/11/18 04:55 AST 17 U/L (13-39) 07/11/18 04:55 ALT 12 U/L (7-52) 07/11/18 04:55 Alkaline Phosphatase 51 U/L (34-104) 07/11/18 04:55 B-Natriuretic Peptide 190.0 pg/mL (5.0-100.0) H 07/12/18 06:20 Total Protein 5.8 gm/dL (6.0-8.3) L 07/11/18 04:55 Albumin 3.2 gm/dL (3.7-5.3) L 07/11/18 04:55 Globulin 2.6 gm/dL 07/11/18 04:55 Albumin/Globulin Ratio 1.2 (1.0-1.8) 07/11/18 04:55 Triglycerides 64 mg/dL (<150) 07/12/18 06:20 Cholesterol 132 mg/dL (<200) 07/12/18 06:20 LDL Cholesterol Direct 92 mg/dL (75-193) 07/12/18 06:20 HDL Cholesterol 37 mg/dL (23-92) 07/12/18 06:20 Carcinoembryonic Ag 4.1 ng/mL (0.0-4.7) 07/07/18 06:19 TSH 3.66 uIU/ml (0.34-5.60) 07/07/18 06:19 Urine Source CLEAN C 07/06/18 16:10 Urine Color YELLOW 07/06/18 16:10 Urine Clarity CLEAR (CLEAR) 07/06/18 16:10 Urine pH 6.0 (4.6 - 8.0) 07/06/18 16:10 Ur Specific [place] 1.025 (1.005-1.030) 07/06/18 16:10 Urine Protein TRACE mg/dL (NEGATIVE) 07/06/18 16:10 Urine Glucose (UA) NEGATIVE mg/dL (NEGATIVE) 07/06/18 16:10 Urine Ketones NEGATIVE mg/dL (NEGATIVE) 07/06/18 16:10 Urine Blood TRACE (NEGATIVE) 07/06/18 16:10 Urine Nitrate NEGATIVE (NEGATIVE) 07/06/18 16:10 Urine Bilirubin NEGATIVE (NEGATIVE) 07/06/18 16:10 Urine Urobilinogen 0.2 E.U./dL (0.2 - 1.0) 07/06/18 16:10 Ur Leukocyte Esterase NEGATIVE (NEGATIVE) 07/06/18 16:10 Urine RBC 2-5 /hpf (0-5) 07/06/18 16:10 Urine WBC 0-2 /hpf (0-5) 07/06/18 16:10 Ur Epithelial Cells FEW /lpf (FEW) 07/06/18 16:10 Urine Bacteria FEW /hpf (NONE SEEN) 07/06/18 16:10 Urine Mucus FEW /lpf (FEW) 07/06/18 16:10 - Physical Exam Vitals and I&O: Vital Signs Temp 98.2 F 07/14/18 05:00 Pulse 84 07/14/18 06:00 Resp 18 07/14/18 06:00 BP 133/61 07/14/18 06:00 Pulse Ox 97 07/14/18 06:00 Intake & Output 07/13/18 07/14/18 07/14/18 18:59 06:59 18:59 Intake Total 276.55 720.833 200 Output Total 1300 900 Balance -1023.45 720.833 -700 Weight (lbs) 81.193 kg 81.193 kg Intake: Intake, IV Amount 86.55 720.833 D5-0.45NS 1,000 ml @ 50 720.833 mls/hr IV .Q20H [facility] Rx#: [id number] Nitroglycerin 50mg/D5W 86.55 Premix 50 mg In 250 ml @ Titrate IV TITR PRN Rx#: [id number] Tube Feeding 90 Other 100 200 Output: Urine 1300 900 Other: # Bowel Movements 0 0 Weight Source Bedscale Bedscale Active Medications: Current Medications Acetaminophen (Tylenol) 650 mg PO Q4HR PRN PRN Reason: Fever > 101 OR MILD PAIN Stop: 09/05/18 09:25 Last Admin: 07/13/18 21:51 Dose: 650 mg Al Hydrox/Mg Hydrox/Simethicone (Maalox) 30 ml PO Q4HR PRN PRN Reason: GI DISTRESS Stop: 09/05/18 09:34 Aspirin (Aspirin Chewable) 81 mg PO DAILY [facility] Stop: 09/05/18 09:29 Last Admin: 07/14/18 08:06 Dose: 81 mg Atorvastatin Calcium (Lipitor) 10 mg PO HS [facility]; Protocol Stop: 09/05/18 20:59 Last Admin: 07/13/18 21:14 Dose: 10 mg Calcium Carbonate (Os-Kelechi) 500 mg PO DAILY [facility] Stop: 09/05/18 09:29 Last Admin: 07/14/18 08:07 Dose: 500 mg Citalopram Hydrobromide (Celexa) 20 mg PO HS [facility]; Protocol Stop: 09/05/18 20:59 Last Admin: 07/13/18 21:14 Dose: 20 mg Docusate Sodium (Colace) 250 mg PO DAILY [facility] Stop: 09/05/18 09:29 Last Admin: 07/14/18 08:07 Dose: 250 mg Enoxaparin Sodium (Lovenox) 40 mg SUBQ Q12H [facility] Stop: 09/06/18 12:14 Last Admin: 07/14/18 00:45 Dose: 40 mg Ergocalciferol (Vitamin D2) 50,000 iu PO QSUN [facility] Stop: 09/06/18 08:59 Last Admin: 07/08/18 10:07 Dose: Not Given Hydralazine HCl (Apresoline 20 Mg/Ml) 10 mg IV Q6HR PRN PRN Reason: BP MAINTENANCE (PER PROTOCOL) Stop: 09/11/18 00:45 Last Admin: 07/13/18 16:04 Dose: 10 mg Dextrose/Sodium Chloride (D5-0.45ns) 1,000 mls @ 50 mls/hr IV .Q20H [facility] Stop: 09/04/18 23:29 Last Infusion: 07/13/18 21:15 Dose: Infused Nitroglycerin/Dextrose (Nitroglycerin 50mg/Dextrose 5% Premix) 50 mg in 250 mls @ 0 mls/hr IV TITR PRN; Protocol PRN Reason: BP MAINTENANCE Stop: 09/08/18 14:32 Last Titration: 07/13/18 13:41 Dose: 0 mcg/min, 0 mls/hr Norepinephrine Bitartrate 4 mg (/ Dextrose) 254 mls @ 0 mls/hr IV TITR PRN; Protocol PRN Reason: BP MAINTENANCE (PER PROTOCOL) Stop: 09/11/18 23:38 Lorazepam (Ativan) 1 mg IVP Q4HR PRN; Protocol PRN Reason: Agitation Stop: 09/05/18 18:12 Last Admin: 07/13/18 08:53 Dose: 1 mg Magnesium Hydroxide (Milk Of Magnesia) 30 ml PO HS PRN PRN Reason: Constipation Stop: 09/05/18 09:18 Memantine (Namenda) 10 mg PO BID [facility] Stop: 09/05/18 09:29 Last Admin: 07/14/18 08:07 Dose: 10 mg Meperidine HCl (Demerol) 25 mg IVP NOW PRN PRN Reason: post-op Stop: 09/08/18 11:33 Last Admin: 07/10/18 12:19 Dose: 25 mg Morphine Sulfate (Morphine) 1 mg IVP Q4HR PRN PRN Reason: Pain (Moderate) 4-7 Stop: 09/08/18 19:41 Last Admin: 07/13/18 05:08 Dose: 1 mg Multivitamins/Vitamin C (Theragran) 1 tab PO DAILY [facility] Stop: 09/06/18 08:59 Last Admin: 07/14/18 08:06 Dose: 1 tab Quetiapine Fumarate (Seroquel) 25 mg PO HS [facility]; Protocol Stop: 09/05/18 20:59 Last Admin: 07/13/18 21:14 Dose: 25 mg - Procedures Procedures: Procedures Procedure Code Date GROUP PSYCHOTHERAPY GZHZZZZ 11/25/16 SUPPLEMENT L COM CAROTID WITH SYNTH SUB, OPEN APPROACH [id number] 07/06/18 Assessment/Plan - Problem List Patient Problems: All Active Problems DYSURIA WITH FEVER AND WEAKNESS (Acute) Nutritional Asmnt/Malnutr-PDOC - Dietary Evaluation Malnutrition Findings (Please click <Entered> for more info): Nutritional Asmnt/Malnutrition Start: 07/11/18 15: 16 Text: Status: Complete Freq: Protocol: Document 07/11/18 15:16 LCHENG (Rec: 07/11/18 15:39 LCBERRYG [email or web address]) Nutritional Asmnt/Malnutrition Patient General Information Nutritional Screening Moderate Risk Diagnosis general wekness, dizziness, fall Pertinent Medical Hx/Surgical Hx HTN, dyslipidemia, dementia, anxiety Subjective Information Pt seen resting in bed at time of visit, s/p left carotid patch graft angioplasty surgery day 1. Clear liquid diet started from lunch today. Pt was on regular diet before surgery, PO intake was 75-100 %. Current Diet Order/ Nutrition Support clear liquid Pertinent Medications os-kelechi, D5-0.45ns, colace, vit D2, theragran Pertinent Labs 07/11 BUN 28, Glucose 168, Ca 8.5, alb 3.2 07/10 BUN 29, Glucose 74, Ca 9 .3 Nutritional Hx/Data Height 1.6 m Height (Calculated Centimeters) 160.0 Current Weight (lbs) 80.286 kg Weight (Calculated Kilograms) 80.3 Weight (Calculated Grams) 43744.8 [place] Body Weight 115 Body Mass Index (BMI) 31.3 Weight Status Obese GI Symptoms GI Symptoms None Last BM 07/10 Difficult in: None Skin Integrity/Comment: intact Estimated Nutritional Goals BEE in Kcals: Adj wt of IBW Calories/Kcals/Kg 27-32 adj wt 59kg Kcals Calculated 3857-8117 Protein: Adj wt of IBW Protein g/k.2 Protein Calculated 70 Fluid: ml 1593-1888ml (1ml/kcal) Nutritional Problem 1. Problem Problem inadequate food intake Etiology increased nutrition needs Signs/Symptoms: s/p surgery, pt on clear liquid diet Malnutrition Alert Is there a minimum of two criteria No selected? Query Text:Check all the applicable criteria. A minimum of two criteria are recommended for diagnosis of either severe or non-severe malnutrition. Malnutrition Related to Morbid Obesity Malnutrition related to morbid obesity No Intervention/Recommendation Comments 1. Continue with clear liquid diet as ordered. Add Ensure clear for extra kcal/protein per protocol. MD to advance diet as tolerated. 2. Monitor PO intake, wt, labs and skin integrity 3. F/U as high risk in 2-3 days, 07/13-07/14 Expected Outcomes/Goals Expected Outcomes/Goals 1. PO intake >90% with supplement TID. Diet advanced in 2-3 days when medically appropriate. 2. Wt stability, skin to remain intact, labs to approach WNL.
--- NOTE | 2018-07-14 15:58 | Progress Notes ---
DATE: 07/14/2018 SUBJECTIVE: The patient was seen in ICU. The patient has been off nitro drip since yesterday, but is stable. The patient appears to be weak, but currently in no acute distress. OBJECTIVE: VITAL SIGNS: Heart rate 85, blood pressure 154/68, 96% oxygen saturation, respiration of 20. HEENT: Head is atraumatic and normocephalic. Eyes: Bilateral conjunctivae are clear. Bilateral pupils are equally round and reactive. NECK: Supple. No JVD. The patient has a nasogastric tube for feeding and medication access. CARDIOVASCULAR: S1 and S2, without murmur. PULMONARY: Decreased breath sounds. GASTROINTESTINAL: Soft and nontender without guarding. Hypoactive bowel sounds. MUSCULOSKELETAL: No clubbing. No cyanosis noted. ASSESSMENT: 1. Carotid artery disease. 2. Status post left carotid patch graft angioplasty. 3. Hypertension. 4. History of transient ischemic attack. 5. Hyperlipidemia. 6. Dementia. PLAN: The patient was cleared to go to telemetry. We will do swallow evaluation and put the patient on aspiration precaution. Treatment plans were discussed with the patient's nurse. Treatment plans were discussed with Dr. Wilson. JOB# [id number]
[2018-07-14] MEDS: Atorvastatin Calcium 10 MG TAB PO SCH (20:11)
[2018-07-15] MEDS: Enoxaparin 40 mg/0.4 mL 0.4mL Syr SUBQ SCH ×2 (00:37→12:01)
[2018-07-15] MEDS: Aspirin 81mg Chewable Tab PO SCH (08:46)
[2018-07-15] MEDS: Multivitamin Tab PO SCH (08:46)
--- NOTE | 2018-07-15 09:15 | General Progress Note ---
Subjective - Review of Systems Events since last encounter: 07/15/18 NGT feeding await swallowing eval BP stable no neuro deficit Objective - Results Result Diagrams: 07/13/18 04:10 07/13/18 04:10 Recent Labs: Laboratory Last Values WBC 8.1 Th/cmm (4.8-10.8) 07/13/18 04:10 RBC 3.35 Mil/cmm (3.80-5.20) L 07/13/18 04:10 Hgb 9.9 gm/dL (12-16) L 07/13/18 04:10 Hct 29.2 % (41.0-60) L 07/13/18 04:10 MCV 87.2 fl (81-100) 07/13/18 04:10 MCH 29.6 pg (27.0-31.0) 07/13/18 04:10 MCHC Differential 33.9 pg (28.0-36.0) 07/13/18 04:10 RDW 12.1 % (11.5-20.0) 07/13/18 04:10 Plt Count 169 Th/cmm (150-400) 07/13/18 04:10 MPV 8.5 fl 07/13/18 04:10 Add Manual Diff YES 07/12/18 06:20 Neutrophils % 79.1 % (40.0-80.0) 07/13/18 04:10 Band Neutrophils % 3 % (0-10) 07/13/18 04:10 Lymphocytes % 6.3 % (20.0-50.0) L 07/13/18 04:10 Monocytes % 12.5 % (2.0-10.0) H 07/13/18 04:10 Eosinophils % 1.3 % (0.0-5.0) 07/13/18 04:10 Basophils % 0.8 % (0.0-2.0) 07/13/18 04:10 Neutrophils (Manual) 80 % (40-80) 07/13/18 04:10 Lymphocytes 3 % (20-50) L 07/13/18 04:10 Monocytes 10 % (2-10) 07/13/18 04:10 Eosinophils 4 % (0-5) 07/13/18 04:10 Basophils 1 % (0-3) 07/12/18 06:20 Platelet Estimate ADEQUATE (NORMAL) 07/13/18 04:10 PT 9.9 SECONDS (9.5-11.5) 07/10/18 05:55 INR 0.95 (0.5-1.4) 07/10/18 05:55 PTT (Actin FS) 26.0 SECONDS (26.0-38.0) 07/10/18 05:55 Sodium 139 mEq/L (136-145) 07/13/18 04:10 Potassium 3.3 mEq/L (3.5-5.1) L 07/13/18 04:10 Chloride 105 mEq/L (98-107) 07/13/18 04:10 Carbon Dioxide 26.4 mEq/L (21.0-31.0) 07/13/18 04:10 Anion Gap 10.9 (7.0-16.0) 07/13/18 04:10 BUN 11 mg/dL (7-25) 07/13/18 04:10 Creatinine 0.6 mg/dL (0.6-1.2) 07/13/18 04:10 Est GFR ( Amer) TNP 07/13/18 04:10 Est GFR (Non-Af Amer) TNP 07/13/18 04:10 BUN/Creatinine Ratio 18.3 07/13/18 04:10 Glucose 136 mg/dL (70-105) H 07/13/18 04:10 POC Glucose 59 MG/DL (70 - 105) L 07/10/18 07:39 Calcium 8.9 mg/dL (8.6-10.3) 07/13/18 04:10 Phosphorus 3.2 mg/dL (2.5-5.0) 07/06/18 16:04 Magnesium 2.0 mg/dL (1.9-2.7) 07/11/18 04:55 Total Bilirubin 0.6 mg/dL (0.3-1.0) 07/11/18 04:55 AST 17 U/L (13-39) 07/11/18 04:55 ALT 12 U/L (7-52) 07/11/18 04:55 Alkaline Phosphatase 51 U/L (34-104) 07/11/18 04:55 B-Natriuretic Peptide 190.0 pg/mL (5.0-100.0) H 07/12/18 06:20 Total Protein 5.8 gm/dL (6.0-8.3) L 07/11/18 04:55 Albumin 3.2 gm/dL (3.7-5.3) L 07/11/18 04:55 Globulin 2.6 gm/dL 07/11/18 04:55 Albumin/Globulin Ratio 1.2 (1.0-1.8) 07/11/18 04:55 Triglycerides 64 mg/dL (<150) 07/12/18 06:20 Cholesterol 132 mg/dL (<200) 07/12/18 06:20 LDL Cholesterol Direct 92 mg/dL (75-193) 07/12/18 06:20 HDL Cholesterol 37 mg/dL (23-92) 07/12/18 06:20 Carcinoembryonic Ag 4.1 ng/mL (0.0-4.7) 07/07/18 06:19 TSH 3.66 uIU/ml (0.34-5.60) 07/07/18 06:19 Urine Source CLEAN C 07/06/18 16:10 Urine Color YELLOW 07/06/18 16:10 Urine Clarity CLEAR (CLEAR) 07/06/18 16:10 Urine pH 6.0 (4.6 - 8.0) 07/06/18 16:10 Ur Specific [place] 1.025 (1.005-1.030) 07/06/18 16:10 Urine Protein TRACE mg/dL (NEGATIVE) 07/06/18 16:10 Urine Glucose (UA) NEGATIVE mg/dL (NEGATIVE) 07/06/18 16:10 Urine Ketones NEGATIVE mg/dL (NEGATIVE) 07/06/18 16:10 Urine Blood TRACE (NEGATIVE) 07/06/18 16:10 Urine Nitrate NEGATIVE (NEGATIVE) 07/06/18 16:10 Urine Bilirubin NEGATIVE (NEGATIVE) 07/06/18 16:10 Urine Urobilinogen 0.2 E.U./dL (0.2 - 1.0) 07/06/18 16:10 Ur Leukocyte Esterase NEGATIVE (NEGATIVE) 07/06/18 16:10 Urine RBC 2-5 /hpf (0-5) 07/06/18 16:10 Urine WBC 0-2 /hpf (0-5) 07/06/18 16:10 Ur Epithelial Cells FEW /lpf (FEW) 07/06/18 16:10 Urine Bacteria FEW /hpf (NONE SEEN) 07/06/18 16:10 Urine Mucus FEW /lpf (FEW) 07/06/18 16:10 - Physical Exam Vitals and I&O: Vital Signs Temp 98.3 F 07/15/18 09:05 Pulse 81 07/15/18 09:05 Resp 18 07/15/18 09:05 BP 139/52 07/15/18 09:05 Pulse Ox 94 07/15/18 07:41 Intake & Output 07/14/18 07/15/18 07/15/18 18:59 06:59 18:59 Intake Total 200 700 Output Total 900 280 Balance -700 420 Weight (lbs) 81.193 kg 81.193 kg Intake: Tube Feeding 500 Other 200 200 Output: Urine 900 280 Other: # Bowel Movements 0 1 Weight Source Bedscale Bedscale Active Medications: Current Medications Acetaminophen (Tylenol) 650 mg PO Q4HR PRN PRN Reason: Fever > 101 OR MILD PAIN Stop: 09/05/18 09:25 Last Admin: 07/13/18 21:51 Dose: 650 mg Al Hydrox/Mg Hydrox/Simethicone (Maalox) 30 ml PO Q4HR PRN PRN Reason: GI DISTRESS Stop: 09/05/18 09:34 Aspirin (Aspirin Chewable) 81 mg PO DAILY [facility] Stop: 09/05/18 09:29 Last Admin: 07/15/18 08:46 Dose: 81 mg Atorvastatin Calcium (Lipitor) 10 mg PO HS [facility]; Protocol Stop: 09/05/18 20:59 Last Admin: 07/14/18 20:11 Dose: 10 mg Calcium Carbonate (Os-Kelechi) 500 mg PO DAILY [facility] Stop: 09/05/18 09:29 Last Admin: 07/15/18 08:46 Dose: 500 mg Citalopram Hydrobromide (Celexa) 20 mg PO HS [facility]; Protocol Stop: 09/05/18 20:59 Last Admin: 07/14/18 20:12 Dose: 20 mg Docusate Sodium (Colace) 250 mg PO DAILY [facility] Stop: 09/05/18 09:29 Last Admin: 07/15/18 08:46 Dose: 250 mg Enoxaparin Sodium (Lovenox) 40 mg SUBQ Q12H [facility] Stop: 09/06/18 12:14 Last Admin: 07/15/18 00:37 Dose: 40 mg Ergocalciferol (Vitamin D2) 50,000 iu PO QSUN [facility] Stop: 09/06/18 08:59 Last Admin: 07/08/18 10:07 Dose: Not Given Hydralazine HCl (Apresoline 20 Mg/Ml) 10 mg IV Q6HR PRN PRN Reason: BP MAINTENANCE (PER PROTOCOL) Stop: 09/11/18 00:45 Last Admin: 07/14/18 20:09 Dose: 10 mg Dextrose/Sodium Chloride (D5-0.45ns) 1,000 mls @ 50 mls/hr IV .Q20H [facility] Stop: 09/04/18 23:29 Last Infusion: 07/13/18 21:15 Dose: Infused Nitroglycerin/Dextrose (Nitroglycerin 50mg/Dextrose 5% Premix) 50 mg in 250 mls @ 0 mls/hr IV TITR PRN; Protocol PRN Reason: BP MAINTENANCE Stop: 09/08/18 14:32 Last Titration: 07/13/18 13:41 Dose: 0 mcg/min, 0 mls/hr Norepinephrine Bitartrate 4 mg (/ Dextrose) 254 mls @ 0 mls/hr IV TITR PRN; Protocol PRN Reason: BP MAINTENANCE (PER PROTOCOL) Stop: 09/11/18 23:38 Lorazepam (Ativan) 1 mg IVP Q4HR PRN; Protocol PRN Reason: Agitation Stop: 09/05/18 18:12 Last Admin: 07/13/18 08:53 Dose: 1 mg Magnesium Hydroxide (Milk Of Magnesia) 30 ml PO HS PRN PRN Reason: Constipation Stop: 09/05/18 09:18 Memantine (Namenda) 10 mg PO BID [facility] Stop: 09/05/18 09:29 Last Admin: 07/15/18 08:46 Dose: 10 mg Meperidine HCl (Demerol) 25 mg IVP NOW PRN PRN Reason: post-op Stop: 09/08/18 11:33 Last Admin: 07/10/18 12:19 Dose: 25 mg Morphine Sulfate (Morphine) 1 mg IVP Q4HR PRN PRN Reason: Pain (Moderate) 4-7 Stop: 09/08/18 19:41 Last Admin: 07/13/18 05:08 Dose: 1 mg Multivitamins/Vitamin C (Theragran) 1 tab PO DAILY [facility] Stop: 09/06/18 08:59 Last Admin: 07/15/18 08:46 Dose: 1 tab Quetiapine Fumarate (Seroquel) 25 mg PO HS [facility]; Protocol Stop: 09/05/18 20:59 Last Admin: 07/14/18 20:12 Dose: 25 mg - Procedures Procedures: Procedures Procedure Code Date GROUP PSYCHOTHERAPY GZHZZZZ 11/25/16 SUPPLEMENT L COM CAROTID WITH SYNTH SUB, OPEN APPROACH [id number] 07/06/18 Assessment/Plan - Problem List Patient Problems: All Active Problems DYSURIA WITH FEVER AND WEAKNESS (Acute) Nutritional Asmnt/Malnutr-PDOC - Dietary Evaluation Malnutrition Findings (Please click <Entered> for more info): Nutritional Asmnt/Malnutrition Start: 07/11/18 15: 16 Text: Status: Complete Freq: Protocol: Document 07/11/18 15:16 LCBERRYG (Rec: 07/11/18 15:39 [email or web address] [email or web address]) Nutritional Asmnt/Malnutrition Patient General Information Nutritional Screening Moderate Risk Diagnosis general wekness, dizziness, fall Pertinent Medical Hx/Surgical Hx HTN, dyslipidemia, dementia, anxiety Subjective Information Pt seen resting in bed at time of visit, s/p left carotid patch graft angioplasty surgery day 1. Clear liquid diet started from lunch today. Pt was on regular diet before surgery, PO intake was 75-100 %. Current Diet Order/ Nutrition Support clear liquid Pertinent Medications os-kelechi, D5-0.45ns, colace, vit D2, theragran Pertinent Labs 07/11 BUN 28, Glucose 168, Ca 8.5, alb 3.2 07/10 BUN 29, Glucose 74, Ca 9 .3 Nutritional Hx/Data Height 1.6 m Height (Calculated Centimeters) 160.0 Current Weight (lbs) 80.286 kg Weight (Calculated Kilograms) 80.3 Weight (Calculated Grams) 82206.8 [place] Body Weight 115 Body Mass Index (BMI) 31.3 Weight Status Obese GI Symptoms GI Symptoms None Last BM 07/10 Difficult in: None Skin Integrity/Comment: intact Estimated Nutritional Goals BEE in Kcals: Adj wt of IBW Calories/Kcals/Kg 27-32 adj wt 59kg Kcals Calculated 3945-2267 Protein: Adj wt of IBW Protein g/k.2 Protein Calculated 70 Fluid: ml 1593-1888ml (1ml/kcal) Nutritional Problem 1. Problem Problem inadequate food intake Etiology increased nutrition needs Signs/Symptoms: s/p surgery, pt on clear liquid diet Malnutrition Alert Is there a minimum of two criteria No selected? Query Text:Check all the applicable criteria. A minimum of two criteria are recommended for diagnosis of either severe or non-severe malnutrition. Malnutrition Related to Morbid Obesity Malnutrition related to morbid obesity No Intervention/Recommendation Comments 1. Continue with clear liquid diet as ordered. Add Ensure clear for extra kcal/protein per protocol. MD to advance diet as tolerated. 2. Monitor PO intake, wt, labs and skin integrity 3. F/U as high risk in 2-3 days, 07/13-07/14 Expected Outcomes/Goals Expected Outcomes/Goals 1. PO intake >90% with supplement TID. Diet advanced in 2-3 days when medically appropriate. 2. Wt stability, skin to remain intact, labs to approach WNL.
--- NOTE | 2018-07-15 11:25 | Internal Medicine Prog Note ---
Internal Medicine Subjective - Subjective Patient seen and examined:: chart reviewed Patient is:: awake, other (in no distress,on NGT feeding) Internal Medicine Objective - Results Result Diagrams: 07/13/18 04:10 07/13/18 04:10 Recent Labs: Laboratory Last Values WBC 8.1 Th/cmm (4.8-10.8) 07/13/18 04:10 RBC 3.35 Mil/cmm (3.80-5.20) L 07/13/18 04:10 Hgb 9.9 gm/dL (12-16) L 07/13/18 04:10 Hct 29.2 % (41.0-60) L 07/13/18 04:10 MCV 87.2 fl (81-100) 07/13/18 04:10 MCH 29.6 pg (27.0-31.0) 07/13/18 04:10 MCHC Differential 33.9 pg (28.0-36.0) 07/13/18 04:10 RDW 12.1 % (11.5-20.0) 07/13/18 04:10 Plt Count 169 Th/cmm (150-400) 07/13/18 04:10 MPV 8.5 fl 07/13/18 04:10 Add Manual Diff YES 07/12/18 06:20 Neutrophils % 79.1 % (40.0-80.0) 07/13/18 04:10 Band Neutrophils % 3 % (0-10) 07/13/18 04:10 Lymphocytes % 6.3 % (20.0-50.0) L 07/13/18 04:10 Monocytes % 12.5 % (2.0-10.0) H 07/13/18 04:10 Eosinophils % 1.3 % (0.0-5.0) 07/13/18 04:10 Basophils % 0.8 % (0.0-2.0) 07/13/18 04:10 Neutrophils (Manual) 80 % (40-80) 07/13/18 04:10 Lymphocytes 3 % (20-50) L 07/13/18 04:10 Monocytes 10 % (2-10) 07/13/18 04:10 Eosinophils 4 % (0-5) 07/13/18 04:10 Basophils 1 % (0-3) 07/12/18 06:20 Platelet Estimate ADEQUATE (NORMAL) 07/13/18 04:10 PT 9.9 SECONDS (9.5-11.5) 07/10/18 05:55 INR 0.95 (0.5-1.4) 07/10/18 05:55 PTT (Actin FS) 26.0 SECONDS (26.0-38.0) 07/10/18 05:55 Sodium 139 mEq/L (136-145) 07/13/18 04:10 Potassium 3.3 mEq/L (3.5-5.1) L 07/13/18 04:10 Chloride 105 mEq/L (98-107) 07/13/18 04:10 Carbon Dioxide 26.4 mEq/L (21.0-31.0) 07/13/18 04:10 Anion Gap 10.9 (7.0-16.0) 07/13/18 04:10 BUN 11 mg/dL (7-25) 07/13/18 04:10 Creatinine 0.6 mg/dL (0.6-1.2) 07/13/18 04:10 Est GFR ( Amer) TNP 07/13/18 04:10 Est GFR (Non-Af Amer) TNP 07/13/18 04:10 BUN/Creatinine Ratio 18.3 07/13/18 04:10 Glucose 136 mg/dL (70-105) H 07/13/18 04:10 POC Glucose 59 MG/DL (70 - 105) L 07/10/18 07:39 Calcium 8.9 mg/dL (8.6-10.3) 07/13/18 04:10 Phosphorus 3.2 mg/dL (2.5-5.0) 07/06/18 16:04 Magnesium 2.0 mg/dL (1.9-2.7) 07/11/18 04:55 Total Bilirubin 0.6 mg/dL (0.3-1.0) 07/11/18 04:55 AST 17 U/L (13-39) 07/11/18 04:55 ALT 12 U/L (7-52) 07/11/18 04:55 Alkaline Phosphatase 51 U/L (34-104) 07/11/18 04:55 B-Natriuretic Peptide 190.0 pg/mL (5.0-100.0) H 07/12/18 06:20 Total Protein 5.8 gm/dL (6.0-8.3) L 07/11/18 04:55 Albumin 3.2 gm/dL (3.7-5.3) L 07/11/18 04:55 Globulin 2.6 gm/dL 07/11/18 04:55 Albumin/Globulin Ratio 1.2 (1.0-1.8) 07/11/18 04:55 Triglycerides 64 mg/dL (<150) 07/12/18 06:20 Cholesterol 132 mg/dL (<200) 07/12/18 06:20 LDL Cholesterol Direct 92 mg/dL (75-193) 07/12/18 06:20 HDL Cholesterol 37 mg/dL (23-92) 07/12/18 06:20 Carcinoembryonic Ag 4.1 ng/mL (0.0-4.7) 07/07/18 06:19 TSH 3.66 uIU/ml (0.34-5.60) 07/07/18 06:19 Urine Source CLEAN C 07/06/18 16:10 Urine Color YELLOW 07/06/18 16:10 Urine Clarity CLEAR (CLEAR) 07/06/18 16:10 Urine pH 6.0 (4.6 - 8.0) 07/06/18 16:10 Ur Specific [place] 1.025 (1.005-1.030) 07/06/18 16:10 Urine Protein TRACE mg/dL (NEGATIVE) 07/06/18 16:10 Urine Glucose (UA) NEGATIVE mg/dL (NEGATIVE) 07/06/18 16:10 Urine Ketones NEGATIVE mg/dL (NEGATIVE) 07/06/18 16:10 Urine Blood TRACE (NEGATIVE) 07/06/18 16:10 Urine Nitrate NEGATIVE (NEGATIVE) 07/06/18 16:10 Urine Bilirubin NEGATIVE (NEGATIVE) 07/06/18 16:10 Urine Urobilinogen 0.2 E.U./dL (0.2 - 1.0) 07/06/18 16:10 Ur Leukocyte Esterase NEGATIVE (NEGATIVE) 07/06/18 16:10 Urine RBC 2-5 /hpf (0-5) 07/06/18 16:10 Urine WBC 0-2 /hpf (0-5) 07/06/18 16:10 Ur Epithelial Cells FEW /lpf (FEW) 07/06/18 16:10 Urine Bacteria FEW /hpf (NONE SEEN) 07/06/18 16:10 Urine Mucus FEW /lpf (FEW) 07/06/18 16:10 - Physical Exam Vitals and I&O: Vital Signs Temp 98.3 F 07/15/18 09:05 Pulse 81 07/15/18 09:05 Resp 18 07/15/18 09:05 BP 139/52 07/15/18 09:05 Pulse Ox 94 07/15/18 07:41 Intake & Output 07/14/18 07/15/18 07/15/18 18:59 06:59 18:59 Intake Total 200 700 Output Total 900 280 Balance -700 420 Weight (lbs) 81.193 kg 81.193 kg Intake: Tube Feeding 500 Other 200 200 Output: Urine 900 280 Other: # Bowel Movements 0 1 Weight Source Bedscale Bedscale Active Medications: Current Medications Acetaminophen (Tylenol) 650 mg PO Q4HR PRN PRN Reason: Fever > 101 OR MILD PAIN Stop: 09/05/18 09:25 Last Admin: 07/13/18 21:51 Dose: 650 mg Al Hydrox/Mg Hydrox/Simethicone (Maalox) 30 ml PO Q4HR PRN PRN Reason: GI DISTRESS Stop: 09/05/18 09:34 Aspirin (Aspirin Chewable) 81 mg PO DAILY [facility] Stop: 09/05/18 09:29 Last Admin: 07/15/18 08:46 Dose: 81 mg Atorvastatin Calcium (Lipitor) 10 mg PO HS [facility]; Protocol Stop: 09/05/18 20:59 Last Admin: 07/14/18 20:11 Dose: 10 mg Calcium Carbonate (Os-Vern) 500 mg PO DAILY [facility] Stop: 09/05/18 09:29 Last Admin: 07/15/18 08:46 Dose: 500 mg Citalopram Hydrobromide (Celexa) 20 mg PO HS [facility]; Protocol Stop: 09/05/18 20:59 Last Admin: 07/14/18 20:12 Dose: 20 mg Docusate Sodium (Colace) 250 mg PO DAILY [facility] Stop: 09/05/18 09:29 Last Admin: 07/15/18 08:46 Dose: 250 mg Enoxaparin Sodium (Lovenox) 40 mg SUBQ Q12H [facility] Stop: 09/06/18 12:14 Last Admin: 07/15/18 00:37 Dose: 40 mg Ergocalciferol (Vitamin D2) 50,000 iu PO QSUN [facility] Stop: 09/06/18 08:59 Last Admin: 07/15/18 10:19 Dose: 50,000 iu Hydralazine HCl (Apresoline 20 Mg/Ml) 10 mg IV Q6HR PRN PRN Reason: BP MAINTENANCE (PER PROTOCOL) Stop: 09/11/18 00:45 Last Admin: 07/14/18 20:09 Dose: 10 mg Dextrose/Sodium Chloride (D5-0.45ns) 1,000 mls @ 50 mls/hr IV .Q20H [facility] Stop: 09/04/18 23:29 Last Infusion: 07/13/18 21:15 Dose: Infused Nitroglycerin/Dextrose (Nitroglycerin 50mg/Dextrose 5% Premix) 50 mg in 250 mls @ 0 mls/hr IV TITR PRN; Protocol PRN Reason: BP MAINTENANCE Stop: 09/08/18 14:32 Last Titration: 07/13/18 13:41 Dose: 0 mcg/min, 0 mls/hr Norepinephrine Bitartrate 4 mg (/ Dextrose) 254 mls @ 0 mls/hr IV TITR PRN; Protocol PRN Reason: BP MAINTENANCE (PER PROTOCOL) Stop: 09/11/18 23:38 Lorazepam (Ativan) 1 mg IVP Q4HR PRN; Protocol PRN Reason: Agitation Stop: 09/05/18 18:12 Last Admin: 07/13/18 08:53 Dose: 1 mg Magnesium Hydroxide (Milk Of Magnesia) 30 ml PO HS PRN PRN Reason: Constipation Stop: 09/05/18 09:18 Memantine (Namenda) 10 mg PO BID [facility] Stop: 09/05/18 09:29 Last Admin: 07/15/18 08:46 Dose: 10 mg Meperidine HCl (Demerol) 25 mg IVP NOW PRN PRN Reason: post-op Stop: 09/08/18 11:33 Last Admin: 07/10/18 12:19 Dose: 25 mg Morphine Sulfate (Morphine) 1 mg IVP Q4HR PRN PRN Reason: Pain (Moderate) 4-7 Stop: 09/08/18 19:41 Last Admin: 07/13/18 05:08 Dose: 1 mg Multivitamins/Vitamin C (Theragran) 1 tab PO DAILY [facility] Stop: 09/06/18 08:59 Last Admin: 07/15/18 08:46 Dose: 1 tab Quetiapine Fumarate (Seroquel) 25 mg PO HS [facility]; Protocol Stop: 09/05/18 20:59 Last Admin: 07/14/18 20:12 Dose: 25 mg General: weak HEENT: NC/AT Neck: Supple Lungs: CTAB Cardiovascular: Normal S1, Normal S2 Abdomen: soft Extremities: clear Neurological: muscle weakness - Procedures Procedures: Procedures Procedure Code Date GROUP PSYCHOTHERAPY GZHZZZZ 11/25/16 SUPPLEMENT L COM CAROTID WITH SYNTH SUB, OPEN APPROACH [id number] 07/06/18 Internal Medicine Assmt/Plan - Assessment Assessment: s/p left graft angioplasty dysuria fever gen weakness acute - Plan Plan: icu monitoring pain mgmt cpm Nutritional Asmnt/Malnutr-PDOC - Dietary Evaluation Malnutrition Findings (Please click <Entered> for more info): Nutritional Asmnt/Malnutrition Start: 07/11/18 15: 16 Text: Status: Complete Freq: Protocol: Document 07/11/18 15:16 LCHENG (Rec: 07/11/18 15:39 LCHENG [email or web address]) Nutritional Asmnt/Malnutrition Patient General Information Nutritional Screening Moderate Risk Diagnosis general wekness, dizziness, fall Pertinent Medical Hx/Surgical Hx HTN, dyslipidemia, dementia, anxiety Subjective Information Pt seen resting in bed at time of visit, s/p left carotid patch graft angioplasty surgery day 1. Clear liquid diet started from lunch today. Pt was on regular diet before surgery, PO intake was 75-100 %. Current Diet Order/ Nutrition Support clear liquid Pertinent Medications os-vern, D5-0.45ns, colace, vit D2, theragran Pertinent Labs 07/11 BUN 28, Glucose 168, Ca 8.5, alb 3.2 07/10 BUN 29, Glucose 74, Ca 9 .3 Nutritional Hx/Data Height 1.6 m Height (Calculated Centimeters) 160.0 Current Weight (lbs) 80.286 kg Weight (Calculated Kilograms) 80.3 Weight (Calculated Grams) 83635.8 [place] Body Weight 115 Body Mass Index (BMI) 31.3 Weight Status Obese GI Symptoms GI Symptoms None Last BM 07/10 Difficult in: None Skin Integrity/Comment: intact Estimated Nutritional Goals BEE in Kcals: Adj wt of IBW Calories/Kcals/Kg 27-32 adj wt 59kg Kcals Calculated 9185-8403 Protein: Adj wt of IBW Protein g/k.2 Protein Calculated 70 Fluid: ml 1593-1888ml (1ml/kcal) Nutritional Problem 1. Problem Problem inadequate food intake Etiology increased nutrition needs Signs/Symptoms: s/p surgery, pt on clear liquid diet Malnutrition Alert Is there a minimum of two criteria No selected? Query Text:Check all the applicable criteria. A minimum of two criteria are recommended for diagnosis of either severe or non-severe malnutrition. Malnutrition Related to Morbid Obesity Malnutrition related to morbid obesity No Intervention/Recommendation Comments 1. Continue with clear liquid diet as ordered. Add Ensure clear for extra kcal/protein per protocol. MD to advance diet as tolerated. 2. Monitor PO intake, wt, labs and skin integrity 3. F/U as high risk in 2-3 days, 07/13-07/14 Expected Outcomes/Goals Expected Outcomes/Goals 1. PO intake >90% with supplement TID. Diet advanced in 2-3 days when medically appropriate. 2. Wt stability, skin to remain intact, labs to approach WNL.
--- NOTE | 2018-07-15 15:18 | Progress Notes ---
DATE: 07/15/2018 CONSULT FOLLOWUP SUBJECTIVE: Chart reviewed and the patient interviewed. Also discussed the patient's condition with the staff and reviewed records and labs. The patient is still in a depressed mood and agitated. The patient is trying to pull NG tube and the patient placed on soft restraints because her trial pull an NG tube. She also is still restless and she is still having difficulty following directions. Otherwise, the patient continued to take Celexa and Ativan. ASSESSMENT: The patient is still agitated and psychotic. TREATMENT PLAN: Continue to monitor her behavior and her condition and continue to work on behavior medication as well as adjusting her psychotropic medications. JOB# [id number]
[2018-07-15] MEDS: D5-0.45NS 1,000 ML IV SCH (16:18)
[2018-07-15] MEDS: Atorvastatin Calcium 10 MG TAB PO SCH (21:26)
--- NOTE | 2018-07-16 16:18 | Cardiology ---
07/12/[address] Wilson. PROCEDURE: Echocardiogram. M-MODE ECHOCARDIOGRAM: Mitral valve, anterior leaflet of mitral valve shows normal excursion, EF velocity. Posterior leaflet of mitral valve shows normal excursion. Left ventricle posterior wall shows increased thickness, normal excursion. Interventricular septum shows increased thickness, normal excursion, hypertrophy of the left ventricle, ejection fraction 70%. Left atrium normal. Aortic root shows normal dimension, normal excursion of aortic leaflets. CONCLUSION: Hypertrophy of the left ventricle, ejection fraction 70%. 2D ECHO: Long axis view show normal size left ventricle with hypertrophy of the left ventricle. Left atrium normal. Aortic root shows normal dimension, normal excursion of aortic leaflets. Short axis view of mitral valve normal. Short axis view of aortic valve normal. Apical four chamber view showed normal sized left ventricle with hypertrophy of the left ventricle. Left atrium normal. Right ventricular cavity, right atrium normal, no pericardial effusion. CONCLUSION: Hypertrophy of the left ventricle, ejection fraction 70%. Doppler study shows mild mitral regurgitation, mild tricuspid regurgitation, right ventricular systolic pressure 47 mmHg with mild pulmonary hypertension. CONCLUSION: Hypertrophy of the left ventricle, mild mitral regurgitation, mild tricuspid regurgitation, mild pulmonary hypertension. [facility]# [id number]
--- NOTE | 2018-08-23 19:29 | Discharge Summary ---
DATE OF DISCHARGE: 07/16/2018 DISCHARGE DIAGNOSES: History of fall, rule out transient ischemic attack; severe weakness; history of psychosis; hypertension; hyperlipidemia; dementia and transient ischemic attack. HISTORY OF PRESENT ILLNESS: The patient was admitted on 07/06/2018. The patient is subsequently came in the ER for severe weakness, dizziness, history of fall, history of dementia, history of hypertension and also possible UTI. The patient was seen in the Emergency Room and was admitted for further management. PHYSICAL EXAMINATION: GENERAL: The patient is awake, alert, in no apparent distress. VITAL SIGNS: Stable. HEAD: Normocephalic and atraumatic. NECK: Supple. No mass. LUNGS: Clear bilaterally. HEART: Regular rate and rhythm. ABDOMEN: Soft and nontender. HOSPITAL COURSE: During this hospitalization, the patient was admitted to the telemetry unit. On 07/10/2018, the patient had a bilateral carotid ultrasound and bilateral carotid stenosis was found and worse on the left side. The patient had a left carotid patch graft angioplasty done by Dr. Hernandez. The patient tolerated the procedure well. The patient was also being followed by engineer design and construction as well. Psychiatry evaluation. The patient was later then stabilized and for further management, the patient was transferred to [facility]. CONDITION UPON DISCHARGE: Fair. DISPOSITION: [facility]. JOB# [id number]
== END 2018-07-15 21:55 | DRG 37 ==
LOC: ER 15:36 → MSI 21:25 → ICU 07-10 11:00 → TELE 07-14 14:53
PROVIDERS: ADMIT Internal Medicine; ATTEND Internal Medicine
PROC: 03UJ0JZ Supplement Left Common Carotid Artery with Synthetic Substitute, Open Approach (ICD-10-PCS; principal; 2018-07-10)
DX: I65.23 Occlusion and stenosis of bilateral carotid arteries (principal); R53.2 Functional quadriplegia; F32.3 Major depressive disorder, single episode, severe with psychotic features; I69.351 Hemiplegia and hemiparesis following cerebral infarction affecting right dominant side; N39.0 Urinary tract infection, site not specified; G93.40 Encephalopathy, unspecified; F03.90 Unspecified dementia, unspecified severity, without behavioral disturbance, psychotic disturbance, mood disturbance, and anxiety; I10 Essential (primary) hypertension; E78.5 Hyperlipidemia, unspecified; F41.9 Anxiety disorder, unspecified; M19.90 Unspecified osteoarthritis, unspecified site; Z91.81 History of falling
CPT/HCPCS: 36415-UA; 70450-TC; 70498-TC; 71045-TC; 80048-TC; 80053-TC; 80061-TC; 81001-TC; 82378-90; 82948-90; 83735-TC; 83880-TC; 84100-TC; 84132-TC; 84443-TC; 85007-TC; 85025-TC; 85610-TC; 87086-90; 93005; 93880-TC; 94760; 96372; J0360; J0690; J1200; J1265; J1630; J1644; J1650; J2001; J2060; J2270; J2405; J2704; J2710; J2720; J3010; J3480; Q9967; V2790; X6026; X6258; X6452; Z7610

== ENCOUNTER 2019-02-04 18:43 | Inpatient (IN) | payer MEDICARE, MEDICAID ==
--- NOTE | 2019-02-04 19:10 | ED Physician Chart ---
ED Chief Complaint/HPI - Patient Information Date Seen:: 02/04/19 Time Seen:: 18:50 Chief Complaint:: Increased agitation. History of Present Illness:: Pt has h/o depression, psychosis, and dementia. Pt was brought in by ambulance from nursing facility because of increased agitation. Pt reportedly has been refusing her usual medications. Pt is now calm and comfortable. Pt denies any bodily pain or discomfort. Allergies:: Allergies Allergy/AdvReac Type Severity Reaction Status Date / Time No Known Allergies Allergy Verified 11/24/16 23:14 Vitals:: Vital Signs - 8 hr 02/04/19 18:55 Temp 99.1 F HR 82 RR 21 BP 106/79 O2 Sat % 93 Historian:: Patient, Medical Records (from transferring facility.) Family MD/PCP:: Dr. Wilson LMP:: Postmenopausal. Review:: Nurse's Note Reviewed, Transfer documents Reviewed ED Review of Systems - Review of Systems General/Constitutional: No fever, No chills, No weight loss, No weakness, No edema, No loss of appetite Skin: No rash, No bruising Head: No headache, No light-headedness Eyes: No loss of vision, No pain, No diplopia ENT: No earache, No nasal drainage, No sore throat Neck: No neck pain, No swelling, No stiffness, No mass noted Cardio Vascular: No chest pain, No palpitations, No edema Pulmonary: No SOB, No cough, No wheezing GI: No nausea, No vomiting, No diarrhea, No pain G/U: No dysuria, No frequency, No hematuria Licensing Specialist: No vaginal discharge, No abnormal vaginal bleed Musculoskeletal: No bone or joint pain, No back pain Psychiatric: Prior psych history, No depression, No anxiety, No suicidal ideation, No homicidal ideation, No auditory hallucination, No visual hallucination Hematopoietic: No bruising, No lymphadenopathy Allergic/Immuno: No urticaria, No angioedema Neurological: No syncope, No focal symptoms, No weakness, No paresthesia, No headache ED Past Medical History - Past Medical History Past Medical History: HTN, CAD, CVA/TIA, Dyslipidemia, Dementia, Other (chronic anemia, CRI.) Family History: HTN Social History: Non Smoker, No Alcohol, No Drug Use, Care Facility Employment:: Retired. Surgical History: other (S/P L carotid angioplasty.) Psychiatricy History: Depression, Dementia Medication: Reviewed Family Medical History - Family Member Mother History Unknown: Yes Ethnicity: Non- ED Physical Exam - Physical Examination General/Constitutional: Awake, Well-developed, well-nourished (female), Alert, No distress, Non-toxic appearing Other Gen/Cons comments:: Breathes comfortably, speaks clearly, and overall cooperative. Head: Atraumatic Eyes: Lids, conjuctiva normal, PERRL, EOMI Skin: Nl inspection, Well hydrated, No lymphadenopathy ENMT: External ears, nose nl, Nasal exam nl, Oropharynx nl Neck: Nontender, Full ROM w/o pain, No JVD, No nuchal rigidity, No mass Respiratory: Nl effort/Exclusion Other Respiratory comments:: Mild rales in R mid lower lung field. No wheeze. Cardio Vascular: RRR, No murmur, gallop, rubs GI: No tenderness/rebounding/guarding, No organomegaly, Normal BS's, Nondistended, No mass/bruits : No CVA tenderness Extremities: No tenderness or effusion, Full ROM, No edema Neuro/Psych: Alert/oriented (knows her name, and that she is in some kind of clinical facility.) Other Neuro/Psych comments:: Spontaneous movements noticed in all 4 extremities. Pt does not cooperate for full neurological exam. ED Labs/Radiology/EKG Results - Lab Results Results: Laboratory Results - last 24 hr 02/04/19 02/04/19 02/04/19 18:45 19:45 19:45 WBC 8.0 RBC 4.29 Hgb 12.2 Hct 36.4 L MCV 84.8 MCH 28.4 MCHC Differential 33.5 RDW 13.1 Plt Count 254 MPV 8.0 Neutrophils % 74.4 Lymphocytes % 10.2 L Monocytes % 6.9 Eosinophils % 8.1 H Basophils % 0.4 PT 10.4 INR 1.00 PTT (Actin FS) 22.2 L Sodium 141 Potassium 3.9 Chloride 106 Carbon Dioxide 25.6 Anion Gap 13.3 BUN 27 H Creatinine 0.9 Est GFR ( Amer) TNP Est GFR (Non-Af Amer) TNP BUN/Creatinine Ratio 30.0 Glucose 149 H Calcium 9.6 Total Bilirubin 0.3 AST 12 L ALT 12 Alkaline Phosphatase 70 Total Protein 6.9 Albumin 3.5 L Globulin 3.4 Albumin/Globulin Ratio 1.0 Laboratory Last Values WBC 8.0 Th/cmm (4.8-10.8) 02/04/19 18:45 RBC 4.29 Mil/cmm (3.80-5.20) 02/04/19 18:45 Hgb 12.2 gm/dL (12-16) 02/04/19 18:45 Hct 36.4 % (41.0-60) L 02/04/19 18:45 MCV 84.8 fl (81-100) 02/04/19 18:45 MCH 28.4 pg (27.0-31.0) 02/04/19 18:45 MCHC Differential 33.5 pg (28.0-36.0) 02/04/19 18:45 RDW 13.1 % (11.5-20.0) 02/04/19 18:45 Plt Count 254 Th/cmm (150-400) 02/04/19 18:45 MPV 8.0 fl 02/04/19 18:45 Neutrophils % 74.4 % (40.0-80.0) 02/04/19 18:45 Lymphocytes % 10.2 % (20.0-50.0) L 02/04/19 18:45 Monocytes % 6.9 % (2.0-10.0) 02/04/19 18:45 Eosinophils % 8.1 % (0.0-5.0) H 02/04/19 18:45 Basophils % 0.4 % (0.0-2.0) 02/04/19 18:45 PT 10.4 SECONDS (9.5-11.5) 02/04/19 19:45 INR 1.00 (0.5-1.4) 02/04/19 19:45 PTT (Actin FS) 22.2 SECONDS (26.0-38.0) L 02/04/19 19:45 Sodium 141 mEq/L (136-145) 02/04/19 19:45 Potassium 3.9 mEq/L (3.5-5.1) 02/04/19 19:45 Chloride 106 mEq/L (98-107) 02/04/19 19:45 Carbon Dioxide 25.6 mEq/L (21.0-31.0) 02/04/19 19:45 Anion Gap 13.3 (7.0-16.0) 02/04/19 19:45 BUN 27 mg/dL (7-25) H 02/04/19 19:45 Creatinine 0.9 mg/dL (0.6-1.2) 02/04/19 19:45 Est GFR ( Amer) TNP 02/04/19 19:45 Est GFR (Non-Af Amer) TNP 02/04/19 19:45 BUN/Creatinine Ratio 30.0 02/04/19 19:45 Glucose 149 mg/dL (70-105) H 02/04/19 19:45 Calcium 9.6 mg/dL (8.6-10.3) 02/04/19 19:45 Total Bilirubin 0.3 mg/dL (0.3-1.0) 02/04/19 19:45 AST 12 U/L (13-39) L 02/04/19 19:45 ALT 12 U/L (7-52) 02/04/19 19:45 Alkaline Phosphatase 70 U/L (34-104) 02/04/19 19:45 Total Protein 6.9 gm/dL (6.0-8.3) 02/04/19 19:45 Albumin 3.5 gm/dL (3.7-5.3) L 02/04/19 19:45 Globulin 3.4 gm/dL 02/04/19 19:45 Albumin/Globulin Ratio 1.0 (1.0-1.8) 02/04/19 19:45 Pending lab results: blood cultures, sputum culture. - Radiology Results Results: CXR (1v): Based on my interpretation, poor inspiration with increased markings at right mid and lower lung baxter c/w pneumonia. Official report is pending. - EKG Interpretations EKG Time:: 19:31 Rate & Rhythm: NSR with VR 82 Comments:: Occasional PVC. Cannot r/o old IMI, age undetermined. No acute ischemic changes. ED Septic Shock - . Is Septic Shock (SBP<90, OR Lactate>4 mmol\L) present?: No - <6hrs of presentation: Vital Signs: Vital Signs - 8 hr 02/04/19 18:55 Temp 99.1 F HR 82 RR 21 BP 106/79 O2 Sat % 93 ED Reassessment (Disposition) - Reassessment Reassessment:: 2149 Pt remains stable. EKG, CXR and available lab findings have been reviewed with pt. Management plan has been discussed. 2301 Case was discussed with Dr. Wilson with pertinent info reviewed. Pt is to be admitted to [facility] under his care. - Diagnosis Diagnosis:: R mid and lower lobe pneumonia. Dementia with increased agitation. Mild hyperglycemia. - Patient Disposition Admitted to:: Med/Surg Admitting Medical Physician:: Panda Wilson Time:: 23:10 Condition at Disposition:: Stable
[2019-02-04 19:54] LABS: % BASOPHILS 0.4 % (0.0-2.0); % EOSINOPHILS 8.1 % (0.0-5.0); % LYMPHOCYTES 10.2 % (20.0-50.0); % MONOCYTES 6.9 % (2.0-10.0); % NEUTROPHILS 74.4 % (40.0-80.0); EOSINOPHILE ABSOLUTE 0.6 Th/cmm (0.1-0.4); HEMATOCRIT 36.4 % (41.0-60); HEMOGLOBIN 12.2 gm/dL (12-16); LYMPHOCYTE ABSOLUTE 0.8 Th/cmm (1.5-3.0); MEAN CELL VOLUME 84.8 fl (81-100); MEAN CORPUSCULAR HEMOGLOBIN 28.4 pg (27.0-31.0); MEAN CORPUSCULAR HGB CONC 33.5 pg (28.0-36.0); MONOCYTE ABSOLUTE 0.6 Th/cmm (0.3-1.0); PLATELET COUNT 254 Th/cmm (150-400); RED BLOOD COUNT 4.29 Mil/cmm (3.80-5.20); RED CELL DISTRIBUTION WIDTH 13.1 % (11.5-20.0)
[2019-02-04 20:05] LABS: ALBUMIN 3.5 gm/dL (3.7-5.3); ALKALINE PHOSPHATASE 70 U/L (34-104); ANION GAP 13.3 (7.0-16.0); BILIRUBIN,TOTAL 0.3 mg/dL (0.3-1.0); BUN - UREA NITROGEN 27 mg/dL (7-25); CALCIUM SERUM 9.6 mg/dL (8.6-10.3); CARBON DIOXIDE 25.6 mEq/L (21.0-31.0); CHLORIDE 106 mEq/L (98-107); CREATININE - SERUM 0.9 mg/dL (0.6-1.2); GLUCOSE 149 mg/dL (70-105); POTASSIUM SERUM 3.9 mEq/L (3.5-5.1); SGOT 12 U/L (13-39); SGPT/ALT 12 U/L (7-52); SODIUM SERUM 141 mEq/L (136-145); TOTAL PROTEIN,SERUM 6.9 gm/dL (6.0-8.3)
[2019-02-05] MEDS ORDERED: cefTRIAXone 1 GM in Sodium Chloride 0.9% 50 ML IV ONE
[2019-02-05] MEDS ORDERED: Azithromycin 500 MG in Sodium Chloride 0.9% 250 ML IV ONE (00:30)
[2019-02-05] MEDS ORDERED: Levofloxacin 500mg/100mL 500 MG in Premix Fluid 1 BAG IV ONE (05:00)
[2019-02-05 06:27] VITALS: BP 96/51
[2019-02-05] MEDS ORDERED: guaiFENesin 200 MG/10 ML UDC PO PRN (08:16)
[2019-02-05] MEDS ORDERED: Magnesium Hydroxide (MOM) 30 mL UDC PO PRN (08:16)
[2019-02-05] MEDS ORDERED: cefTRIAXone 1 GM in Sodium Chloride 0.9% 50 ML IV SCH (08:30)
--- NOTE | 2019-02-05 08:43 | History & Physical ---
ADMIT DATE: 02/05/2019 CHIEF COMPLAINT: Agitation. HISTORY OF PRESENT ILLNESS: This is an 83-year-old female who is a detention resident, who was originally sent to ER due to increase of agitation. Due to patient's chest x-ray, the patient was noted with pneumonia. For this reason, the patient will be admitted to the Med/Surg unit. PAST MEDICAL HISTORY: Hypertension, CAD, CVA, dyslipidemia, dementia, chronic anemia. FAMILY HISTORY: Noncontributory. SOCIAL HISTORY: The patient is a detention resident. PAST SURGICAL HISTORY: Left carotid angioplasty. MEDICATIONS: See medication list. REVIEW OF SYSTEMS: Unable to obtain, patient is confused. PHYSICAL EXAMINATION: GENERAL: Elderly female, well-developed, well-nourished, in no apparent distress. VITAL SIGNS: Temperature 98.5, heart rate 86, blood pressure 102/58, respiration 18, O2 94%. HEENT: Head; normocephalic, atraumatic. NECK: Supple. No mass. LUNGS: Few scattered rhonchi. CARDIOVASCULAR: Regular rhythm. ABDOMEN: Soft, nontender. EXTREMITIES: No edema noted. LABORATORY DATA: WBC 8.0, H and H 12.2 and 36.4, platelets 254. Sodium 141, potassium 3.9, chloride 106, BUN 27 and creatinine 0.9. The patient had a chest x-ray done, impression is poor inspiration with increased markings in right mid and lower lung baxter with pneumonia. ASSESSMENT: 1. Community-acquired pneumonia, vasomotor nephropathy, moderate protein-calorie malnutrition, hypertension, history of cerebrovascular accident, dyslipidemia, dementia, history of anemia. 2. Generalized weakness. PLAN: The patient will be admitted to the Med/Surg unit. We will treat the patient with Zithromax and Rocephin, gentle IV fluids for hydration. We will keep the patient on 2 gram sodium diet. We will get psychiatric consultation, respiratory treatments as needed, aspiration precautions. We will get a followup chest x-ray for tomorrow morning, continue patient's home medications. We will continue to monitor the patient. JOB# [id number]
[2019-02-05] MEDS ORDERED: Azithromycin 500 MG in Sodium Chloride 0.9% 250 ML IV SCH (09:00)
[2019-02-05] MEDS: Aspirin 81mg Chewable Tab PO SCH (09:11)
[2019-02-05] MEDS: Multivitamin w/ Minerals Tab PO SCH (09:11)
[2019-02-05] MEDS: D5-0.45NS 1,000 ML IV SCH ×2 (09:30→23:21)
--- NOTE | 2019-02-05 09:36 | Diagnostic Imaging Report ---
Portable chest x-ray HISTORY: Cough, fever There is a poor inspiration. The heart is enlarged. Atherosclerotic calcification seen in the aorta. Generalized accentuation of the interstitial lung markings. Question infiltrate right lower lobe. Pneumonia cannot be excluded. IMPRESSION: 1. Poor inspiration with questionable infiltrate right lower lobe. Pneumonia cannot be excluded. Clinical correlation is needed. 2. Cardiomegaly with atherosclerotic vascular changes
[2019-02-05] MEDS: Ipratropium Neb 0.5 mg/2.5 mL UD HHN SCH ×2 (10:40→19:00)
[2019-02-05] MEDS: Albuterol Nebulizer 2.5mg/3mL HHN SCH ×2 (10:40→19:00)
[2019-02-05 16:53] LABS: ANION GAP 10.3 (7.0-16.0); BUN - UREA NITROGEN 26 mg/dL (7-25); CALCIUM SERUM 9.7 mg/dL (8.6-10.3); CHLORIDE 107 mEq/L (98-107); CREATININE - SERUM 0.9 mg/dL (0.6-1.2); GLUCOSE 97 mg/dL (70-105); POTASSIUM SERUM 4.3 mEq/L (3.5-5.1); SODIUM SERUM 140 mEq/L (136-145)
[2019-02-05] MEDS: Atorvastatin Calcium 10 MG TAB PO SCH (20:32)
[2019-02-05 20:54] LABS: WHITE BLOOD COUNT 7.1 Th/cmm (4.8-10.8)
[2019-02-05 20:55] LABS: % EOSINOPHILS 8.9 % (0.0-5.0); % LYMPHOCYTES 11.7 % (20.0-50.0); % MONOCYTES 7.9 % (2.0-10.0); % NEUTROPHILS 70.9 % (40.0-80.0); HEMATOCRIT 36.1 % (41.0-60); HEMOGLOBIN 11.9 gm/dL (12-16); MEAN CELL VOLUME 87.3 fl (81-100); MEAN CORPUSCULAR HEMOGLOBIN 28.7 pg (27.0-31.0); MEAN CORPUSCULAR HGB CONC 32.9 pg (28.0-36.0); PLATELET COUNT 260 Th/cmm (150-400); RED BLOOD COUNT 4.14 Mil/cmm (3.80-5.20); RED CELL DISTRIBUTION WIDTH 14.2 % (11.5-20.0)
[2019-02-05 20:56] LABS: % BASOPHILS 0.6 % (0.0-2.0); LYMPHOCYTE ABSOLUTE 0.8 Th/cmm (1.5-3.0)
[2019-02-05 20:57] LABS: EOSINOPHILE ABSOLUTE 0.6 Th/cmm (0.1-0.4); MONOCYTE ABSOLUTE 0.6 Th/cmm (0.3-1.0)
--- NOTE | 2019-02-05 21:47 | Consultation ---
DATE OF CONSULTATION: 02/05/2019 INFECTIOUS DISEASE CONSULTATION REFERRING PHYSICIAN: Dr. Wilson REASON FOR CONSULTATION: Pneumonia. HISTORY OF PRESENT ILLNESS: The patient is an 83-year-old female with past medical history of hypertension, coronary artery disease, CVA, dyslipidemia, dementia, and chronic anemia, brought in from skilled nursing for agitation. On initial evaluation, the patient was afebrile and the patient's WBC count was 8000. Chest x-ray showed right lower lobe infiltrate. So, the patient was admitted with right lower lobe pneumonia. Antibiotic-stevenson, the patient was started on Levaquin. PAST MEDICAL HISTORY: Includes hypertension, coronary artery disease, CVA, dyslipidemia, dementia, and anemia of chronic disease. FAMILY HISTORY: Noncontributory. SOCIAL HISTORY: The patient lives at a skilled nursing. No history of smoking, alcohol or drug use. PAST SURGICAL HISTORY: Left carotid angioplasty. MEDICATIONS: As per medication reconciliation sheet. Antibiotic-stevenson, the patient is on Levaquin. REVIEW OF SYSTEMS: Unable to obtain. The patient is confused. So far, the patient has no fever. PHYSICAL EXAMINATION: VITAL SIGNS: Current vital signs show temperature 97.9, pulse 78, respirations 18, blood pressure 129/87. GENERAL: The patient is comfortable, lying in the bed, not in any acute distress. HEENT: Head is normocephalic, atraumatic. Oral cavity is moist. [place] tongue. NECK: Supple. No JVD. No carotid bruit. Trachea in midline. CHEST: Bilateral breath sounds. No crackles or wheezing. HEART: S1 and S2 within normal limits. Regular rhythm. No murmur, no gallop. ABDOMEN: Soft, nontender, nondistended. Bowel sounds present. EXTREMITIES: No cyanosis, no clubbing, no edema. NEUROLOGIC: Alert and awake, but confused. LABORATORY DATA: WBC count 8000, hemoglobin 12.2, hematocrit 36.4, platelets 254,000. Sodium is 141, potassium 3.9, chloride 106, bicarbonate 27. Sodium is 141, potassium is 3.9, chloride is 106, bicarbonate is 25.6, BUN is 27, creatinine 0.9, glucose 149. Chest x-ray with right lower lobe infiltrate. IMPRESSION: 1. Right lower lobe pneumonia. 2. Dementia. 3. Anemia of chronic disease. 4. Coronary artery disease. 5. Cerebrovascular accident. 6. Hypertension. 7. Dyslipidemia. RECOMMENDATIONS: Continue Levaquin at an adjusted dose to a lower dose at 250 mg p.o. daily for a total of 8 days. Thank you, Dr. Wilson, for involving me in taking care of this patient. JOB# [id number]
[2019-02-06] MEDS: Albuterol Nebulizer 2.5mg/3mL HHN SCH ×4 (07:00→18:47)
[2019-02-06] MEDS: Ipratropium Neb 0.5 mg/2.5 mL UD HHN SCH ×4 (07:00→18:48)
[2019-02-06] MEDS: Aspirin 81mg Chewable Tab PO SCH ×2 (10:01→11:54)
[2019-02-06] MEDS: Multivitamin w/ Minerals Tab PO SCH ×2 (10:01→11:55)
--- NOTE | 2019-02-06 14:47 | Consultation ---
DATE OF CONSULTATION: 02/05/2019 HISTORY OF PRESENT ILLNESS: An 83-year-old female, care home resident, sent to the ER due to increase in agitation and unruly behaviors, could not be cared for. Apparently was decompensating. Chest x-ray noted pneumonia. On [id number], the patient is AO to name, place, not city, not situation, not years. She guesses the month is "January," not day of the week. The patient really has no idea why she is in the hospital, ____ anxiety, "Why am I here." Denying overt depression. PAST PSYCHIATRIC HISTORY: Dementia. No suicide attempts. FAMILY HISTORY: Noncontributory. SOCIAL HISTORY: The patient is living in a longterm facility, born in [place], not , states she has 1 adult son. The patient really has no idea where she lives, giving some address that is unrelated to where she actually lives. PAST SURGICAL HISTORY: Noted. MEDICATIONS: Noted including Celexa. MENTAL STATUS EXAMINATION: Stated age. Fair eye contact. Speech within normal limits. Mood "okay." Affect flat. Thought processes were disengaged, confused. No SI, no HI. No overt psychotic symptoms. Poor insight, poor judgment, very poor impulse control. PROVISIONAL DIAGNOSES: Dementia per documentation, mood, unspecified; anxiety, unspecified; psychosis, unspecified. MEDICAL: Please see full H and P. RECOMMENDATIONS AND PLAN: Recommend continuation of Seroquel. The patient may need Geropsych placement given her behaviors. [facility]# [id number]
[2019-02-06] MEDS: D5-0.45NS 1,000 ML IV SCH (18:29)
[2019-02-06] MEDS: Atorvastatin Calcium 10 MG TAB PO SCH (21:29)
--- NOTE | 2019-02-07 12:40 | Diagnostic Imaging Report ---
Exam: Portable initially chest HISTORY: Pneumonia COMPARISON: 02/04/2019 Findings: Portable summation of chest reviewed. The study demonstrates decrease in the right lower lobe infiltrate. The costophrenic angles are clear bony thorax intact. Ill-defined nodularity in the right mid chest appreciated. The costophrenic angles are clear. COPD changes noted. IMPRESSION: Decreased right basilar infiltrate.
--- NOTE | 2019-02-12 22:42 | Discharge Summary ---
DATE OF DISCHARGE: 02/06/2019 The patient was admitted on 02/04/2019 to [facility] Medical Floor. HISTORY OF PRESENT ILLNESS: The patient is an 83-year-old female who came in because of increasing agitation, and the patient known to have history of hypertension, coronary artery disease, CVA, hyperlipidemia. FAMILY HISTORY: Unremarkable in the past. SOCIAL HISTORY: Unremarkable. PAST SURGICAL HISTORY: History of right carotid artery angioplasty. PHYSICAL EXAMINATION: HEENT: Head: Normal. ENT: Normal. LUNGS: Bilateral rales. CARDIOVASCULAR SYSTEM: S1 and S2 heard. ABDOMEN: Soft. Bowel sounds are heard. LABORATORY DATA: Indicated dehydration. BUN was 27. Chest x-ray showed a right middle and right lower lobe pneumonia. DIAGNOSES: 1. Right lower lobe pneumonia. 2. History of hypertension. 3. History of cerebrovascular accident. 4. History of hyperlipidemia. 5. Dementia. 6. Anemia. HOSPITAL COURSE: The patient was admitted for IV antibiotics and we will have Dr. Rasmussen see the patient for ID and I will also give her IV for hydration and then psychiatrist for psych problem and we will transfer to Psych Unit when she is stable. This patient was treated with IV antibiotic. The patient felt better and the patient was cleared by Dr. Rasmussen. The patient was sent to [facility] for further therapy and I will be following the patient. [facility]# [id number]
== END 2019-02-06 21:20 | DRG 193 ==
LOC: ER 18:43 → MSI 23:38
PROVIDERS: ADMIT Internal Medicine; ATTEND Internal Medicine
DX: J18.1 Lobar pneumonia, unspecified organism (principal); N17.0 Acute kidney failure with tubular necrosis; E44.0 Moderate protein-calorie malnutrition; F03.91 Unspecified dementia, unspecified severity, with behavioral disturbance; I25.10 Atherosclerotic heart disease of native coronary artery without angina pectoris; E78.5 Hyperlipidemia, unspecified; N18.9 Chronic kidney disease, unspecified; I12.9 Hypertensive chronic kidney disease with stage 1 through stage 4 chronic kidney disease, or unspecified chronic kidney disease; E11.65 Type 2 diabetes mellitus with hyperglycemia; D63.8 Anemia in other chronic diseases classified elsewhere; F39 Unspecified mood [affective] disorder; F41.9 Anxiety disorder, unspecified; F29 Unspecified psychosis not due to a substance or known physiological condition; Z86.73 Personal history of transient ischemic attack (TIA), and cerebral infarction without residual deficits
CPT/HCPCS: 36415-UA; 71045-TC; 80048-TC; 80053-TC; 85025-TC; 85610-TC; 87070; 90779; 93005; 94640; 94760; J0360; J0456; J0696; J1956; J7613; Z7610

== ENCOUNTER 2019-02-06 21:15 | Inpatient (IN) | payer MEDICARE, MEDICAID ==
[2019-02-06 23:36] VITALS: BP 147/89
[2019-02-07] MEDS ORDERED: Magnesium Hydroxide (MOM) 30 mL UDC PO PRN (00:19)
[2019-02-07] MEDS ORDERED: Acetaminophen 500 MG TAB PO PRN (00:19)
[2019-02-07] MEDS: Aspirin 81mg Chewable Tab PO SCH (09:21)
[2019-02-07] MEDS: Multivitamin w/ Minerals Tab PO SCH (09:22)
--- NOTE | 2019-02-07 14:41 | History & Physical ---
ADMIT DATE: 02/07/2019 DICTATED FOR: Dr. Wilson. CHIEF COMPLAINT: Admitted from the Med/Surg unit. HISTORY OF PRESENT ILLNESS: This is an 83-year-old female who is admitted from the Med/Surg unit due to increased agitation, refusing medications. PAST MEDICAL HISTORY: Hypercholesterolemia, hypertension, psychosis, dementia, MRSA. PAST SURGICAL HISTORY: Unknown. ALLERGIES: No known drug allergies. HOME MEDICATIONS: See medication list. REVIEW OF SYSTEMS: GENERAL: Denies any fever or chills. CARDIOVASCULAR: Denies chest pain. RESPIRATORY: Denies shortness of breath. GASTROINTESTINAL: Denies nausea, vomiting, abdominal pain. GENITOURINARY: Denies increased frequency or dysuria. NEUROLOGIC: No headaches, seizures, or syncope. All other systems reviewed and negative. PHYSICAL EXAMINATION: GENERAL: Elderly female, well developed, well nourished, in no apparent distress. VITAL SIGNS: Temperature 97, heart rate 60, blood pressure 147/81, respirations 19, O2 97%. HEENT: Head: Normocephalic, atraumatic. NECK: Supple. No mass. LUNGS: Clear bilaterally. HEART: Regular rhythm. ABDOMEN: Soft, nontender. ASSESSMENT: Hypercholesterolemia, acute urinary tract infection, dementia, psychosis. PLAN: Fall precautions will be initiated. We will continue the patient on oral Levaquin for 7 days, low-fat diet. We will continue to monitor this patient. [facility]# [id number]
[2019-02-07] MEDS: Atorvastatin Calcium 10 MG TAB PO SCH (21:42)
--- NOTE | 2019-02-08 04:43 | Progress Notes ---
DATE: 02/07/2019 SUBJECTIVE: The patient was seen in the Med/Surg unit. The patient now in the Psych unit. Noted to be very confused, AO to name, not place, states the year is 2024. Does not know what is going on, really impulsive, unpredictable, concerns that she may strike out at others, some yelling episodes, increased agitation, refusing medications at times. Apparently, the patient is conserved, currently on dosing of Seroquel. Ongoing concerns mostly for the safety of others. PLAN: We will continue to monitor and monitor for any side effect. Dictation Ends Here. JOB# [id number]
[2019-02-08] MEDS: Multivitamin w/ Minerals Tab PO SCH (09:29)
[2019-02-08] MEDS: Aspirin 81mg Chewable Tab PO SCH (09:29)
[2019-02-08] MEDS ORDERED: Probiotic Screen MC PRN (10:52)
--- NOTE | 2019-02-08 14:49 | Internal Medicine Prog Note ---
Internal Medicine Subjective - Subjective Service Date: 02/08/19 Patient seen and examined:: with staff Patient is:: awake, verbal, agitated, confused Patient Complaints of:: other (Uti.) Per staff patient has:: no adverse event, no episodes of fall Internal Medicine Objective - Physical Exam Vitals and I&O: Vital Signs Temp 97.5 F 02/07/19 20:00 Pulse 71 02/08/19 09:30 Resp 19 02/07/19 20:00 BP 138/74 02/08/19 09:30 Pulse Ox 95 02/07/19 20:00 Intake & Output 02/07/19 02/08/19 02/08/19 18:59 06:59 18:59 Intake Total 1400 120 Balance 1400 120 Intake: Oral 1400 120 Other: # Voids 4 3 # Bowel Movements 1 Stool Characteristics Soft Active Medications: Current Medications Acetaminophen (Tylenol) 650 mg PO Q4HR PRN PRN Reason: Fever > 101 OR MILD PAIN Stop: 04/08/19 00:18 Acetaminophen (Tylenol Extra Strength) 1,000 mg PO Q4H PRN PRN Reason: Pain (Moderate) Stop: 04/08/19 00:18 Aspirin (Aspirin Chewable) 81 mg PO DAILY [facility] Stop: 04/08/19 08:59 Last Admin: 02/08/19 09:29 Dose: 81 mg Atorvastatin Calcium (Lipitor) 10 mg PO [facility]; Protocol Stop: 04/08/19 20:59 Last Admin: 02/07/19 21:42 Dose: Not Given Calcium Carbonate (Os-Vern) 1,250 mg PO DAILY [facility] Stop: 04/08/19 08:59 Last Admin: 02/08/19 09:28 Dose: 1,250 mg Citalopram Hydrobromide (Celexa) 10 mg PO [facility]; Protocol Stop: 04/08/19 20:59 Last Admin: 02/07/19 21:42 Dose: Not Given Docusate Sodium (Colace) 250 mg PO DAILY [facility] Stop: 04/08/19 08:59 Last Admin: 02/08/19 09:28 Dose: 250 mg Ergocalciferol (Vitamin D2) 50,000 iu PO Fr@0800 [facility] Stop: 04/09/19 07:59 Last Admin: 02/08/19 10:49 Dose: 50,000 iu Hydralazine HCl (Apresoline) 20 mg PO TID [facility] Stop: 04/08/19 08:59 Last Admin: 02/08/19 09:30 Dose: 20 mg Lactobacillus Rhamnosus (Culturelle 15b) 1 each PO DAILY [facility] Stop: 04/10/19 08:59 Levofloxacin (Levaquin) 500 mg PO DAILY [facility] Stop: 02/12/19 08:59 Last Admin: 02/08/19 09:30 Dose: 500 mg Lorazepam (Ativan) 0.5 mg PO Q4H PRN; Protocol PRN Reason: Anxiety Stop: 04/08/19 00:09 Magnesium Hydroxide (Milk Of Magnesia) 30 ml PO HS PRN PRN Reason: Constipation Stop: 04/08/19 00:18 Memantine (Namenda) 10 mg PO Q12HR [place] Stop: 04/08/19 00:29 Last Admin: 02/08/19 09:29 Dose: 10 mg Miscellaneous (Probiotic Screen) 1 ea [facility] PRN PRN PRN Reason: PROTOCOL Stop: 04/09/19 10:51 Mupirocin (Bactroban Oint) 1 appl TP BID [facility] Stop: 02/12/19 08:59 Last Admin: 02/08/19 09:34 Dose: 1 appl Quetiapine Fumarate (Seroquel) 25 mg PO BID [facility]; Protocol Stop: 04/08/19 08:59 Last Admin: 02/08/19 09:29 Dose: 25 mg Quetiapine Fumarate (Seroquel) 25 mg PO HS [facility]; Protocol Stop: 04/08/19 20:59 Last Admin: 02/07/19 21:44 Dose: Not Given Zolpidem Tartrate (Ambien) 5 mg PO HS PRN PRN Reason: Insomnia Stop: 04/08/19 00:09 Physical Exam: 83 y/o female patient has UTI. General: weak HEENT: NC/AT Neck: Supple Lungs: CTAB Cardiovascular: RRR, Normal S1 Abdomen: soft, non-tender Extremities: clear Neurological: no change - Procedures Procedures: Procedures Procedure Code Date GROUP PSYCHOTHERAPY [id number] 11/25/16 SUPPLEMENT L COM CAROTID WITH SYNTH SUB, OPEN APPROACH [id number] 07/06/18 Internal Medicine Assmt/Plan - Assessment Assessment: Acute Uti. Dementia. Hypercholesterolemia. Psychosis. - Plan Plan: Continuation of care. Monitor Vitals and Labs. Continue present meds as directed. Monitor Diet/ Low sodium diet /Nutritional support. Psych management per Psych. Pain Management. Fall precaution, frequent nursing rounds, and as needed restraints to prevent fall. Safety precaution. Supportive care. Continue collaborating with consulting specialists, case management and nursing team. Will Monitor patient and continue current treatment plan as ordered. Nutritional Asmnt/Malnutr-PDOC - Dietary Evaluation Malnutrition Findings (Please click <Entered> for more info): see orders.
[2019-02-08] MEDS: Atorvastatin Calcium 10 MG TAB PO SCH (22:06)
--- NOTE | 2019-02-09 01:17 | Progress Notes ---
DATE: 02/08/2019 Case was discussed with staff of the patient, reviewed records. Covering for Dr. Jimenez. The patient is an 83-year-old female who was admitted on 02/06/2019, continues to be confused, unable to tell me her name or place. She is also hard of hearing, unable to state a safe plan for self-care, unpredictable, impulsive, needing redirection, demented, and confused. She has been compliant with the medication with no side effects, no sedation, no nausea, no extrapyramidal symptoms. She is on Namenda 10 mg twice a day. She is on Seroquel 25 mg twice a day and 25 mg at bedtime with no side effects, no sedation, no nausea, no extrapyramidal symptoms. We will continue the patient in group therapy, milieu therapy, and adjust the medication as needed. [facility]# [id number]
[2019-02-09] MEDS: Aspirin 81mg Chewable Tab PO SCH (08:31)
[2019-02-09] MEDS: Multivitamin w/ Minerals Tab PO SCH (08:32)
[2019-02-09] MEDS: Lactobacillus Rhamnosus GG 15 Billion CFU CAP.SPRINK PO SCH (08:32)
--- NOTE | 2019-02-09 10:19 | Progress Notes ---
DATE: 02/09/2019 SUBJECTIVE: The patient was seen in her room. The patient is a poor historian due to medical condition, appears to be calm and comfortable; otherwise, the patient appears to be in no acute distress. OBJECTIVE: VITAL SIGNS: Temperature 98.3, heart rate 73, blood pressure 138/68, respiration 20, 95% on room air. HEENT: Head is atraumatic and normocephalic. Eyes: Bilateral conjunctivae are clear. Bilateral pupils are equally round and reactive. NECK: Supple. No JVD. CARDIOVASCULAR: S1, S2, without murmur. PULMONARY: Clear to auscultation. GASTROINTESTINAL: Soft and nontender without guarding. Positive bowel sounds. MUSCULOSKELETAL: No clubbing. No cyanosis noted. ASSESSMENT: 1. Dementia. 2. Hyperlipidemia. 3. Hypertension. 4. Vitamin D deficiency. 5. Osteoarthritis. PLAN: We will keep the patient inpatient to Psychiatric unit and we will follow up with a psychiatrist to monitor the patient's condition and behavior. Treatment plans were discussed with the patient's nurse. Treatment plans were discussed with Dr. Wilson. JOB# [id number]
[2019-02-09] MEDS: Atorvastatin Calcium 10 MG TAB PO SCH (21:23)
[2019-02-10] MEDS: Multivitamin w/ Minerals Tab PO SCH (08:25)
[2019-02-10] MEDS: Lactobacillus Rhamnosus GG 15 Billion CFU CAP.SPRINK PO SCH (08:25)
[2019-02-10] MEDS: Aspirin 81mg Chewable Tab PO SCH (08:25)
--- NOTE | 2019-02-10 08:51 | Internal Medicine Prog Note ---
Internal Medicine Subjective - Subjective Patient seen and examined:: with staff Patient is:: asleep, agitated, confused Patient Complaints of:: other Per staff patient has:: no adverse event, no episodes of fall Internal Medicine Objective - Physical Exam Vitals and I&O: Vital Signs Temp 97.9 F 02/09/19 14:22 Pulse 78 02/10/19 08:22 Resp 18 02/09/19 20:00 BP 139/79 02/10/19 08:22 Pulse Ox 93 02/09/19 14:22 Intake & Output 02/09/19 02/10/19 02/10/19 18:59 06:59 18:59 Intake Total 80 Balance 80 Intake: Oral 80 Other: # Voids 1 # Bowel Movements 0 Active Medications: Current Medications Acetaminophen (Tylenol) 650 mg PO Q4HR PRN PRN Reason: Fever > 101 OR MILD PAIN Stop: 04/08/19 00:18 Acetaminophen (Tylenol Extra Strength) 1,000 mg PO Q4H PRN PRN Reason: Pain (Moderate) Stop: 04/08/19 00:18 Aspirin (Aspirin Chewable) 81 mg PO DAILY [facility] Stop: 04/08/19 08:59 Last Admin: 02/10/19 08:25 Dose: 81 mg Atorvastatin Calcium (Lipitor) [address] [facility]; Protocol Stop: 04/08/19 20:59 Last Admin: 02/09/19 21:23 Dose: 10 mg Calcium Carbonate (Os-Sonia) 1,250 mg PO DAILY [facility] Stop: 04/08/19 08:59 Last Admin: 02/10/19 08:26 Dose: 1,250 mg Citalopram Hydrobromide (Celexa) 10 mg PO HS [facility]; Protocol Stop: 04/08/19 20:59 Last Admin: 02/09/19 21:25 Dose: 10 mg Docusate Sodium (Colace) 250 mg PO DAILY [facility] Stop: 04/08/19 08:59 Last Admin: 02/10/19 08:22 Dose: 250 mg Ergocalciferol (Vitamin D2) 50,000 iu PO Fr@0800 [facility] Stop: 04/09/19 07:59 Last Admin: 02/08/19 10:49 Dose: 50,000 iu Hydralazine HCl (Apresoline) 20 mg PO TID [facility] Stop: 04/08/19 08:59 Last Admin: 06/23/19 08:22 Dose: 20 mg Lactobacillus Rhamnosus (Culturelle 15b) 1 each PO DAILY [facility] Stop: 04/10/19 08:59 Last Admin: 02/10/19 08:25 Dose: 1 each Levofloxacin (Levaquin) 500 mg PO DAILY [facility] Stop: 02/12/19 08:59 Last Admin: 02/10/19 08:25 Dose: 500 mg Lorazepam (Ativan) 0.5 mg PO Q4H PRN; Protocol PRN Reason: Anxiety Stop: 04/08/19 00:09 Magnesium Hydroxide (Milk Of Magnesia) 30 ml PO HS PRN PRN Reason: Constipation Stop: 04/08/19 00:18 Memantine (Namenda) 10 mg PO Q12HR [facility] Stop: 04/08/19 00:29 Last Admin: 02/10/19 08:26 Dose: 10 mg Miscellaneous (Probiotic Screen) 1 ea MC PRN PRN PRN Reason: PROTOCOL Stop: 04/09/19 10:51 Mupirocin (Bactroban Oint) 1 appl TP BID [facility] Stop: 02/12/19 08:59 Last Admin: 02/10/19 08:26 Dose: 1 appl Quetiapine Fumarate (Seroquel) 25 mg PO BID [facility]; Protocol Stop: 04/08/19 08:59 Last Admin: 02/10/19 08:25 Dose: 25 mg Quetiapine Fumarate (Seroquel) 25 mg PO HS [facility]; Protocol Stop: 04/08/19 20:59 Last Admin: 02/09/19 21:26 Dose: 25 mg Zolpidem Tartrate (Ambien) 5 mg PO HS PRN PRN Reason: Insomnia Stop: 04/08/19 00:09 General: weak HEENT: NC/AT Neck: Supple Lungs: CTAB Cardiovascular: RRR Abdomen: soft, non-tender Extremities: clear Neurological: no change - Procedures Procedures: Procedures Procedure Code Date GROUP PSYCHOTHERAPY GZHZZZZ 11/25/16 SUPPLEMENT L COM CAROTID WITH SYNTH SUB, OPEN APPROACH [id number] 07/06/18 Internal Medicine Assmt/Plan - Assessment Assessment: Dementia Hyperlipidemia HTN OA - Plan Plan: Continuation of care. Monitor Vitals and Labs. Continue present meds as directed. Monitor Diet/ Low sodium diet /Nutritional support. Psych management per Psych. Pain Management. Fall precaution, frequent nursing rounds, and as needed restraints to prevent fall. Safety precaution. Supportive care. Continue collaborating with consulting specialists, case management and nursing team. Will Monitor patient and continue current treatment plan as ordered. Nutritional Asmnt/Malnutr-PDOC - Dietary Evaluation Malnutrition Findings (Please click <Entered> for more info): Nutritional Asmnt/Malnutrition Start: 02/08/19 15: 42 Text: Status: Active Freq: Protocol: Document 02/08/19 15:44 INDIO (Rec: 02/08/19 16:13 INDIO [email or web address]) Nutritional Asmnt/Malnutrition Patient General Information Nutritional Screening Moderate Risk Diagnosis PSYCHOSIS Pertinent Medical Hx/Surgical Hx HYPERCHOLESTEROLEMIA, HTN, PSYCHOSIS, DEMENTIA, MSRA Subjective Information PT IS A 83 YEAR OLD FEMALE ADMITTED FROM MED/SURG UNIT D/ T INCREASED AGITATION AND REFUSING MEDICATIONS. HT: 53 WT: 180 (81.8KG) BMI: 31.89 (OBESE) ABW: 131 LB (59.5KG) GI: WNL BM: 02/08 X1 I/O: 1520/ NO NOTED SKIN: WNL SUSAN: 15 DIET ORDER: 2GM NA ESTIMATED ENERGY NEEDS: 2440-5226 KCALS (20-25 KCALS/ KG) 65-74 G PRO (0.8-0.9 G/KG) 0513-5963 ML FLUIDS (35-40 ML/ KG) PT PO INTAKE: 75-100% DIETARY IS CURRENTLY PROVIDING 2434 KCALS AND 96 GM PRO. WITH PT PO INTAKE, PT IS RECEIVING AN ESTIMATED 100%+ KCAL AND 100%+ PRO REQUIREMENTS- ADEQUATE. Pertinent Medications LIPITOR, OS-SONIA, COLACE, MOM Pertinent Labs 02/04: ALB 3.5 02/05: HGB/HCT 11.9/36.1, BUN/ CR 26/0.9 07/10: POC GLUC 59 Nutritional Hx/Data Height 5 ft 3 in Height (Calculated Centimeters) 160.0 Current Weight (lbs) 180 lb Weight (Calculated Kilograms) 81.6 Weight (Calculated Grams) 41631.6 [place] Body Weight 115 % [place] Body Weight 157 Body Mass Index (BMI) 31.8 Weight Status Obese GI Symptoms GI Symptoms None Last BM 02/08 X1 Skin Integrity/Comment: WNL Current %PO Good (75-100%) Estimated Nutritional Goals BEE in Kcals: Using Current wt Calories/Kcals/Kg 20-25 Kcals Calculated 5169-7300 Protein g/k.8-0.9 Protein Calculated 65-74 Fluid: ml 5218-8969 Nutritional Problem No current Nutrition Prob Problem N/A Etiology N/A Signs/Symptoms: N/A Malnutrition Related to Morbid Obesity Malnutrition related to morbid obesity No Intervention/Recommendation Comments 1. CONTINUE 2 GM NA DIET ORDERED. 2. MONITOR WT, SKIN INTEGRITY, NUTRITTION RELATED LABS, AND PO INTAKE. Expected Outcomes/Goals Expected Outcomes/Goals 1. PT TO CONTINUE TO MEET >75% NUTRITIONAL NEEDS. 2. WT STABILITY, SKIN INTEGRITY WNL, NUTRITION RELATED LABS WNL.
--- NOTE | 2019-02-10 12:32 | Progress Notes ---
DATE: SUBJECTIVE: The patient was seen and evaluated. The patient's chart reviewed. This is Dr. Alcantar doing initial psychiatric evaluation covering for Dr. Jimenez. IDENTIFYING DATA: She has history of schizophrenia. She has been impulsive, irritable, agitated ____. The patient was seen very irritable, agitated, does not know what place she is in. She believes it is 2015, disorganized and refusing medications at times. MENTAL STATUS EXAMINATION: Disorganized and delusional. ASSESSMENT AND PLAN: The patient ____ delusional state and refusing medications intermittently, unable to formulate a safe plan outside the structured environment. We will continue with primary psychiatric treatment and plan and goals. [facility]# [id number]
[2019-02-10] MEDS: Atorvastatin Calcium 10 MG TAB PO SCH (21:17)
--- NOTE | 2019-02-10 23:58 | Progress Notes ---
DATE: 02/10/2019 SUBJECTIVE: The patient was seen and evaluated. The patient was interviewed. Today, on [id number] evaluation, the patient still needs a lot of redirection. She only knows her name, does not know where she is. Very impulsive and gets angry, irritable when attempting to discuss further information. On examination, irritable, agitated, yelling episodes and increased agitation. ASSESSMENT AND PLAN: Due to patient's still ongoing intermittent refuse of medications and disorganized state and unable to form a safe plan, ____. JOB# [id number]
[2019-02-11] MEDS: Lactobacillus Rhamnosus GG 15 Billion CFU CAP.SPRINK PO SCH (08:30)
[2019-02-11] MEDS: Multivitamin w/ Minerals Tab PO SCH (08:30)
[2019-02-11] MEDS: Aspirin 81mg Chewable Tab PO SCH (08:30)
--- NOTE | 2019-02-11 11:03 | Internal Medicine Prog Note ---
Internal Medicine Subjective - Subjective Service Date: 02/11/19 Patient seen and examined:: with staff Patient is:: asleep, agitated, confused Patient Complaints of:: other Per staff patient has:: no adverse event, no episodes of fall, agitated, combative Internal Medicine Objective - Physical Exam Vitals and I&O: Vital Signs Temp 0 F 02/11/19 06:26 Pulse 66 02/10/19 21:17 Resp 20 02/10/19 20:32 BP 115/66 02/10/19 21:17 Pulse Ox 97 02/10/19 20:32 Intake & Output 02/10/19 02/11/19 02/11/19 18:59 06:59 18:59 Intake Total 800 480 Output Total 1 Balance 800 479 Intake: Oral 800 480 Output: Urine/Stool Mix 1 Other: # Voids 4 3 # Bowel Movements 1 0 Active Medications: Current Medications Acetaminophen (Tylenol) 650 mg PO Q4HR PRN PRN Reason: Fever > 101 OR MILD PAIN Stop: 04/08/19 00:18 Acetaminophen (Tylenol Extra Strength) 1,000 mg PO Q4H PRN PRN Reason: Pain (Moderate) Stop: 04/08/19 00:18 Aspirin (Aspirin Chewable) 81 mg PO DAILY [facility] Stop: 04/08/19 08:59 Last Admin: 02/11/19 08:30 Dose: 81 mg Atorvastatin Calcium (Lipitor) 10 mg PO [facility]; Protocol Stop: 04/08/19 20:59 Last Admin: 02/10/19 21:17 Dose: 10 mg Calcium Carbonate (Os-Sonia) 1,250 mg PO DAILY [facility] Stop: 04/08/19 08:59 Last Admin: 02/11/19 08:30 Dose: 1,250 mg Citalopram Hydrobromide (Celexa) 10 mg PO HS [facility]; Protocol Stop: 04/08/19 20:59 Last Admin: 02/10/19 21:16 Dose: 10 mg Docusate Sodium (Colace) 250 mg PO DAILY [facility] Stop: 04/08/19 08:59 Last Admin: 02/11/19 08:31 Dose: Not Given Ergocalciferol (Vitamin D2) 50,000 iu PO Fr@0800 [facility] Stop: 04/09/19 07:59 Last Admin: 02/08/19 10:49 Dose: 50,000 iu Hydralazine HCl (Apresoline) 20 mg PO TID [facility] Stop: 04/08/19 08:59 Last Admin: 02/11/19 08:30 Dose: Not Given Lactobacillus Rhamnosus (Culturelle 15b) 1 each PO DAILY [facility] Stop: 04/10/19 08:59 Last Admin: 02/11/19 08:30 Dose: 1 each Levofloxacin (Levaquin) 500 mg PO DAILY [facility] Stop: 02/12/19 08:59 Last Admin: 02/11/19 08:28 Dose: 500 mg Lorazepam (Ativan) 0.5 mg PO Q4H PRN; Protocol PRN Reason: Anxiety Stop: 04/08/19 00:09 Magnesium Hydroxide (Milk Of Magnesia) 30 ml PO HS PRN PRN Reason: Constipation Stop: 04/08/19 00:18 Memantine (Namenda) 10 mg PO Q12HR [facility] Stop: 04/08/19 00:29 Last Admin: 02/11/19 08:31 Dose: 10 mg Miscellaneous (Probiotic Screen) 1 ea MC PRN PRN PRN Reason: PROTOCOL Stop: 04/09/19 10:51 Mupirocin (Bactroban Oint) 1 appl TP BID [facility] Stop: 02/12/19 08:59 Last Admin: 02/10/19 17:01 Dose: 1 appl Quetiapine Fumarate (Seroquel) 25 mg PO BID [facility]; Protocol Stop: 04/08/19 08:59 Last Admin: 02/11/19 08:29 Dose: 25 mg Quetiapine Fumarate (Seroquel) 25 mg PO HS [facility]; Protocol Stop: 04/08/19 20:59 Last Admin: 02/10/19 21:16 Dose: 25 mg Zolpidem Tartrate (Ambien) 5 mg PO HS PRN PRN Reason: Insomnia Stop: 04/08/19 00:09 Physical Exam: 83 y/o female patient has been having episodes of yelling and screaming, very agitated. General: weak HEENT: NC/AT Neck: Supple Lungs: CTAB Cardiovascular: RRR Abdomen: soft, non-tender Extremities: clear Neurological: no change - Procedures Procedures: Procedures Procedure Code Date GROUP PSYCHOTHERAPY GZHZZZZ 11/25/16 SUPPLEMENT L COM CAROTID WITH SYNTH SUB, OPEN APPROACH [id number] 07/06/18 Internal Medicine Assmt/Plan - Assessment Assessment: Acute Uti. Dementia. Hypercholesterolemia. Psychosis. - Plan Plan: Continuation of care. Monitor Vitals and Labs. Continue present meds as directed. Monitor Diet/ Low sodium diet /Nutritional support. Psych management per Psych. Pain Management. Fall precaution, frequent nursing rounds, and as needed restraints to prevent fall. Safety precaution. Supportive care. Continue collaborating with consulting specialists, case management and nursing team. Will Monitor patient and continue current treatment plan as ordered. Nutritional Asmnt/Malnutr-PDOC - Dietary Evaluation Malnutrition Findings (Please click <Entered> for more info): Nutritional Asmnt/Malnutrition Start: 02/08/19 15: 42 Text: Status: Active Freq: Protocol: Document 02/08/19 15:44 INDIO (Rec: 02/08/19 16:13 INDIO [email or web address]) Nutritional Asmnt/Malnutrition Patient General Information Nutritional Screening Moderate Risk Diagnosis PSYCHOSIS Pertinent Medical Hx/Surgical Hx HYPERCHOLESTEROLEMIA, HTN, PSYCHOSIS, DEMENTIA, MSRA Subjective Information PT IS A 83 YEAR OLD FEMALE ADMITTED FROM MED/SURG UNIT D/ T INCREASED AGITATION AND REFUSING MEDICATIONS. HT: 53 WT: 180 (81.8KG) BMI: 31.89 (OBESE) ABW: 131 LB (59.5KG) GI: WNL BM: 02/08 X1 I/O: 1520/ NO NOTED SKIN: WNL SUSAN: 15 DIET ORDER: 2GM NA ESTIMATED ENERGY NEEDS: [id number] KCALS (20-25 KCALS/ KG) 65-74 G PRO (0.8-0.9 G/KG) 6371-0057 ML FLUIDS (35-40 ML/ KG) PT PO INTAKE: 75-100% DIETARY IS CURRENTLY PROVIDING 2434 KCALS AND 96 GM PRO. WITH PT PO INTAKE, PT IS RECEIVING AN ESTIMATED 100%+ KCAL AND 100%+ PRO REQUIREMENTS- ADEQUATE. Pertinent Medications LIPITOR, OS-SONIA, COLACE, MOM Pertinent Labs 02/04: ALB 3.5 02/05: HGB/HCT 11.9/36.1, BUN/ CR 26/0.9 07/10: POC GLUC 59 Nutritional Hx/Data Height 1.6 m Height (Calculated Centimeters) 160.0 Current Weight (lbs) 81.647 kg Weight (Calculated Kilograms) 81.6 Weight (Calculated Grams) 46185.6 [place] Body Weight 115 % [place] Body Weight 157 Body Mass Index (BMI) 31.8 Weight Status Obese GI Symptoms GI Symptoms None Last BM 02/08 X1 Skin Integrity/Comment: WNL Current %PO Good (75-100%) Estimated Nutritional Goals BEE in Kcals: Using Current wt Calories/Kcals/Kg 20-25 Kcals Calculated 3181-8262 Protein g/k.8-0.9 Protein Calculated 65-74 Fluid: ml 1377-2187 Nutritional Problem No current Nutrition Prob Problem N/A Etiology N/A Signs/Symptoms: N/A Malnutrition Related to Morbid Obesity Malnutrition related to morbid obesity No Intervention/Recommendation Comments 1. CONTINUE 2 GM NA DIET ORDERED. 2. MONITOR WT, SKIN INTEGRITY, NUTRITTION RELATED LABS, AND PO INTAKE. Expected Outcomes/Goals Expected Outcomes/Goals 1. PT TO CONTINUE TO MEET >75% NUTRITIONAL NEEDS. 2. WT STABILITY, SKIN INTEGRITY WNL, NUTRITION RELATED LABS WNL.
[2019-02-11] MEDS: Atorvastatin Calcium 10 MG TAB PO SCH (21:50)
--- NOTE | 2019-02-12 01:35 | Progress Notes ---
DATE: 02/11/2019 SUBJECTIVE: The patient impulsive, irritable, agitated, very confused, disoriented, does not know what is going on, suspicious of others, ____ the questions, does not want to answer questions, gets very mad, ongoing yelling episodes. ASSESSMENT: The patient unruly, still symptomatic, confused, concerns about impulsivity, there are concerns that she may strike out at others. PLAN: We will continue to monitor ongoing safety concerns. [facility]# [id number]
[2019-02-12] MEDS: Multivitamin w/ Minerals Tab PO SCH (09:03)
[2019-02-12] MEDS: Aspirin 81mg Chewable Tab PO SCH (09:03)
[2019-02-12] MEDS: Lactobacillus Rhamnosus GG 15 Billion CFU CAP.SPRINK PO SCH (09:03)
--- NOTE | 2019-02-12 18:48 | Internal Medicine Prog Note ---
Internal Medicine Subjective - Subjective Service Date: 02/12/19 Patient is:: asleep, agitated, confused Patient Complaints of:: other Per staff patient has:: no adverse event, no episodes of fall, agitated, combative Internal Medicine Objective - Physical Exam Vitals and I&O: Vital Signs Temp 98.1 F 02/12/19 14:53 Pulse 84 02/12/19 14:53 Resp 19 02/12/19 14:53 BP 124/70 02/12/19 14:53 Pulse Ox 94 02/12/19 14:53 Intake & Output 02/11/19 02/12/19 02/12/19 18:59 06:59 18:59 Intake Total 800 240 Output Total 1 Balance 800 239 Intake: Oral 800 240 Output: Urine/Stool Mix 1 Other: # Voids 4 3 # Bowel Movements 1 0 Active Medications: Current Medications Acetaminophen (Tylenol) 650 mg PO Q4HR PRN PRN Reason: Fever > 101 OR MILD PAIN Stop: 04/08/19 00:18 Acetaminophen (Tylenol Extra Strength) 1,000 mg PO Q4H PRN PRN Reason: Pain (Moderate) Stop: 04/08/19 00:18 Aspirin (Aspirin Chewable) 81 mg PO DAILY [facility] Stop: 04/08/19 08:59 Last Admin: 02/12/19 09:03 Dose: Not Given Atorvastatin Calcium (Lipitor) 10 mg PO [facility]; Protocol Stop: 04/08/19 20:59 Last Admin: 02/11/19 21:50 Dose: Not Given Calcium Carbonate (Os-Sonia) 1,250 mg PO DAILY [facility] Stop: 04/08/19 08:59 Last Admin: 02/12/19 09:03 Dose: Not Given Citalopram Hydrobromide (Celexa) 10 mg PO [facility]; Protocol Stop: 04/08/19 20:59 Last Admin: 02/11/19 21:50 Dose: Not Given Docusate Sodium (Colace) 250 mg PO DAILY [facility] Stop: 04/08/19 08:59 Last Admin: 02/12/19 09:03 Dose: Not Given Ergocalciferol (Vitamin D2) 50,000 iu PO Fr@0800 [facility] Stop: 04/09/19 07:59 Last Admin: 02/08/19 10:49 Dose: 50,000 iu Hydralazine HCl (Apresoline) 20 mg PO TID [facility] Stop: 04/08/19 08:59 Last Admin: 02/12/19 13:09 Dose: Not Given Lactobacillus Rhamnosus (Culturelle 15b) 1 each PO DAILY [facility] Stop: 04/10/19 08:59 Last Admin: 02/12/19 09:03 Dose: Not Given Lorazepam (Ativan) 0.5 mg PO Q4H PRN; Protocol PRN Reason: Anxiety Stop: 04/08/19 00:09 Magnesium Hydroxide (Milk Of Magnesia) 30 ml PO HS PRN PRN Reason: Constipation Stop: 04/08/19 00:18 Memantine (Namenda) 10 mg PO Q12HR [facility] Stop: 04/08/19 00:29 Last Admin: 02/12/19 09:03 Dose: Not Given Miscellaneous (Probiotic Screen) 1 ea MC PRN PRN PRN Reason: PROTOCOL Stop: 04/09/19 10:51 Quetiapine Fumarate (Seroquel) 25 mg PO BID [facility]; Protocol Stop: 04/08/19 08:59 Last Admin: 02/12/19 16:36 Dose: Not Given Quetiapine Fumarate (Seroquel) 25 mg PO HS [facility]; Protocol Stop: 04/08/19 20:59 Last Admin: 02/11/19 21:51 Dose: Not Given Zolpidem Tartrate (Ambien) 5 mg PO HS PRN PRN Reason: Insomnia Stop: 04/08/19 00:09 General: weak HEENT: NC/AT Neck: Supple Lungs: CTAB Cardiovascular: RRR Abdomen: soft, non-tender Extremities: clear Neurological: no change - Procedures Procedures: Procedures Procedure Code Date GROUP PSYCHOTHERAPY GZHZZZZ 11/25/16 SUPPLEMENT L COM CAROTID WITH SYNTH SUB, OPEN APPROACH [id number] 07/06/18 Nutritional Asmnt/Malnutr-PDOC - Dietary Evaluation Malnutrition Findings (Please click <Entered> for more info): Nutritional Asmnt/Malnutrition Start: 02/08/19 15: 42 Text: Status: Active Freq: Protocol: Document 02/08/19 15:44 INDIO (Rec: 02/08/19 16:13 INDIO [email or web address]) Nutritional Asmnt/Malnutrition Patient General Information Nutritional Screening Moderate Risk Diagnosis PSYCHOSIS Pertinent Medical Hx/Surgical Hx HYPERCHOLESTEROLEMIA, HTN, PSYCHOSIS, DEMENTIA, MSRA Subjective Information PT IS A 83 YEAR OLD FEMALE ADMITTED FROM MED/SURG UNIT D/ T INCREASED AGITATION AND REFUSING MEDICATIONS. HT: 53 WT: 180 (81.8KG) BMI: 31.89 (OBESE) ABW: 131 LB (59.5KG) GI: WNL BM: 02/08 X1 I/O: 1520/ NO NOTED SKIN: WNL SUSAN: 15 DIET ORDER: 2GM NA ESTIMATED ENERGY NEEDS: 3882-6617 KCALS (20-25 KCALS/ KG) 65-74 G PRO (0.8-0.9 G/KG) 7615-0159 ML FLUIDS (35-40 ML/ KG) PT PO INTAKE: 75-100% DIETARY IS CURRENTLY PROVIDING 2434 KCALS AND 96 GM PRO. WITH PT PO INTAKE, PT IS RECEIVING AN ESTIMATED 100%+ KCAL AND 100%+ PRO REQUIREMENTS- ADEQUATE. Pertinent Medications LIPITOR, OS-SONIA, COLACE, MOM Pertinent Labs 02/04: ALB 3.5 02/05: HGB/HCT 11.9/36.1, BUN/ CR 26/0.9 07/10: POC GLUC 59 Nutritional Hx/Data Height 5 ft 3 in Height (Calculated Centimeters) 160.0 Current Weight (lbs) 180 lb Weight (Calculated Kilograms) 81.6 Weight (Calculated Grams) 97371.6 [place] Body Weight 115 % [place] Body Weight 157 Body Mass Index (BMI) 31.8 Weight Status Obese GI Symptoms GI Symptoms None Last BM 02/08 X1 Skin Integrity/Comment: WNL Current %PO Good (75-100%) Estimated Nutritional Goals BEE in Kcals: Using Current wt Calories/Kcals/Kg 20-25 Kcals Calculated 1314-6795 Protein g/k.8-0.9 Protein Calculated 65-74 Fluid: ml 3576-9812 Nutritional Problem No current Nutrition Prob Problem N/A Etiology N/A Signs/Symptoms: N/A Malnutrition Related to Morbid Obesity Malnutrition related to morbid obesity No Intervention/Recommendation Comments 1. CONTINUE 2 GM NA DIET ORDERED. 2. MONITOR WT, SKIN INTEGRITY, NUTRITTION RELATED LABS, AND PO INTAKE. Expected Outcomes/Goals Expected Outcomes/Goals 1. PT TO CONTINUE TO MEET >75% NUTRITIONAL NEEDS. 2. WT STABILITY, SKIN INTEGRITY WNL, NUTRITION RELATED LABS WNL.
[2019-02-12] MEDS: Atorvastatin Calcium 10 MG TAB PO SCH (21:39)
--- NOTE | 2019-02-12 21:42 | Progress Notes ---
DATE: 02/12/2019 SUBJECTIVE: The patient allowing ADLs, somewhat calmer, but very disorganized, confused, does not want to take medications, wants to be left alone, withdrawn, keeps to self. The patient really has no idea where she is or what is going on. Still disorganized, nonsensical. Medications were noted. PLAN: We will continue to monitor. Continue dosing of Celexa, low-dose Seroquel. [facility]# [id number]
[2019-02-13] MEDS: Multivitamin w/ Minerals Tab PO SCH ×2 (09:07→09:18)
[2019-02-13] MEDS: Lactobacillus Rhamnosus GG 15 Billion CFU CAP.SPRINK PO SCH ×2 (09:07→09:19)
[2019-02-13] MEDS: Aspirin 81mg Chewable Tab PO SCH ×2 (09:09→09:19)
--- NOTE | 2019-02-13 15:09 | Internal Medicine Prog Note ---
Internal Medicine Subjective - Subjective Service Date: 02/13/19 Patient seen and examined:: with staff Patient is:: asleep, agitated, confused Patient Complaints of:: other Per staff patient has:: no adverse event, no episodes of fall, agitated, combative Internal Medicine Objective - Physical Exam Vitals and I&O: Vital Signs Temp 97.8 F 02/13/19 06:39 Pulse 84 02/13/19 06:39 Resp 18 02/13/19 06:39 BP 122/67 02/13/19 06:39 Pulse Ox 98 02/13/19 06:39 Intake & Output 02/12/19 02/13/19 02/13/19 18:59 06:59 18:59 Intake Total 120 Balance 120 Intake: Oral 120 Other: # Voids 1 # Bowel Movements 0 Active Medications: Current Medications Acetaminophen (Tylenol) 650 mg PO Q4HR PRN PRN Reason: Fever > 101 OR MILD PAIN Stop: 04/08/19 00:18 Acetaminophen (Tylenol Extra Strength) 1,000 mg PO Q4H PRN PRN Reason: Pain (Moderate) Stop: 04/08/19 00:18 Aspirin (Aspirin Chewable) 81 mg PO DAILY [facility] Stop: 04/08/19 08:59 Last Admin: 02/13/19 09:19 Dose: Not Given Atorvastatin Calcium (Lipitor) 10 mg PO HS [facility]; Protocol Stop: 04/08/19 20:59 Last Admin: 02/12/19 21:39 Dose: Not Given Calcium Carbonate (Os-Sonia) 1,250 mg PO DAILY [facility] Stop: 04/08/19 08:59 Last Admin: 02/13/19 09:19 Dose: Not Given Docusate Sodium (Colace) 250 mg PO DAILY [facility] Stop: 04/08/19 08:59 Last Admin: 02/13/19 09:19 Dose: Not Given Ergocalciferol (Vitamin D2) 50,000 iu PO Fr@0800 [facility] Stop: 04/09/19 07:59 Last Admin: 02/08/19 10:49 Dose: 50,000 iu Hydralazine HCl (Apresoline) 20 mg PO TID [facility] Stop: 04/08/19 08:59 Last Admin: 02/13/19 14:23 Dose: Not Given Lactobacillus Rhamnosus (Culturelle 15b) 1 each PO DAILY [facility] Stop: 04/10/19 08:59 Last Admin: 02/13/19 09:19 Dose: Not Given Lorazepam (Ativan) 0.5 mg PO Q4H PRN; Protocol PRN Reason: Anxiety Stop: 04/08/19 00:09 Magnesium Hydroxide (Milk Of Magnesia) 30 ml PO HS PRN PRN Reason: Constipation Stop: 04/08/19 00:18 Memantine (Namenda) 10 mg PO Q12HR [facility] Stop: 04/08/19 00:29 Last Admin: 02/13/19 09:18 Dose: Not Given Miscellaneous (Probiotic Screen) 1 ea MC PRN PRN PRN Reason: PROTOCOL Stop: 04/09/19 10:51 Miscellaneous (Misc Oral Tab) 1.5 tab PO HS [facility] Stop: 04/14/19 20:59 Quetiapine Fumarate (Seroquel) 25 mg PO BID [facility]; Protocol Stop: 04/08/19 08:59 Last Admin: 02/13/19 09:18 Dose: Not Given Quetiapine Fumarate (Seroquel) 25 mg PO HS [facility]; Protocol Stop: 04/08/19 20:59 Last Admin: 02/12/19 21:39 Dose: Not Given Zolpidem Tartrate (Ambien) 5 mg PO HS PRN PRN Reason: Insomnia Stop: 04/08/19 00:09 Physical Exam: 83 y/o female patient continues to have episodes of yelling and screaming, very agitated. General: weak HEENT: NC/AT Neck: Supple Lungs: CTAB Cardiovascular: RRR Abdomen: soft, non-tender Extremities: clear Neurological: no change - Procedures Procedures: Procedures Procedure Code Date GROUP PSYCHOTHERAPY GZHZZZZ 11/25/16 SUPPLEMENT L COM CAROTID WITH SYNTH SUB, OPEN APPROACH [id number] 07/06/18 Internal Medicine Assmt/Plan - Assessment Assessment: Acute Uti. Dementia. Hypercholesterolemia. Psychosis. - Plan Plan: Continuation of care. Monitor Vitals and Labs. Continue present meds as directed. Monitor Diet/ Low sodium diet /Nutritional support. Psych management per Psych. Pain Management. Fall precaution, frequent nursing rounds, and as needed restraints to prevent fall. Safety precaution. Supportive care. Continue collaborating with consulting specialists, case management and nursing team. Will Monitor patient and continue present management. Nutritional Asmnt/Malnutr-PDOC - Dietary Evaluation Malnutrition Findings (Please click <Entered> for more info): Nutritional Asmnt/Malnutrition Start: 02/08/19 15: 42 Text: Status: Active Freq: Protocol: Document 02/08/19 15:44 INDIO (Rec: 02/08/19 16:13 INDIO [email or web address]) Nutritional Asmnt/Malnutrition Patient General Information Nutritional Screening Moderate Risk Diagnosis PSYCHOSIS Pertinent Medical Hx/Surgical Hx HYPERCHOLESTEROLEMIA, HTN, PSYCHOSIS, DEMENTIA, MSRA Subjective Information PT IS A 83 YEAR OLD FEMALE ADMITTED FROM MED/SURG UNIT D/ T INCREASED AGITATION AND REFUSING MEDICATIONS. HT: 53 WT: 180 (81.8KG) BMI: 31.89 (OBESE) ABW: 131 LB (59.5KG) GI: WNL BM: 02/08 X1 I/O: 1520/ NO NOTED SKIN: WNL SUSAN: 15 DIET ORDER: 2GM NA ESTIMATED ENERGY NEEDS: 0863-0395 KCALS (20-25 KCALS/ KG) 65-74 G PRO (0.8-0.9 G/KG) 1132-3667 ML FLUIDS (35-40 ML/ KG) PT PO INTAKE: 75-100% DIETARY IS CURRENTLY PROVIDING 2434 KCALS AND 96 GM PRO. WITH PT PO INTAKE, PT IS RECEIVING AN ESTIMATED 100%+ KCAL AND 100%+ PRO REQUIREMENTS- ADEQUATE. Pertinent Medications LIPITOR, OS-SONIA, COLACE, MOM Pertinent Labs 02/04: ALB 3.5 02/05: HGB/HCT 11.9/36.1, BUN/ CR 26/0.9 07/10: POC GLUC 59 Nutritional Hx/Data Height 1.6 m Height (Calculated Centimeters) 160.0 Current Weight (lbs) 81.647 kg Weight (Calculated Kilograms) 81.6 Weight (Calculated Grams) 40393.6 [place] Body Weight 115 % [place] Body Weight 157 Body Mass Index (BMI) 31.8 Weight Status Obese GI Symptoms GI Symptoms None Last BM 02/08 X1 Skin Integrity/Comment: WNL Current %PO Good (75-100%) Estimated Nutritional Goals BEE in Kcals: Using Current wt Calories/Kcals/Kg 20-25 Kcals Calculated 8013-5756 Protein g/k.8-0.9 Protein Calculated 65-74 Fluid: ml 6012-9032 Nutritional Problem No current Nutrition Prob Problem N/A Etiology N/A Signs/Symptoms: N/A Malnutrition Related to Morbid Obesity Malnutrition related to morbid obesity No Intervention/Recommendation Comments 1. CONTINUE 2 GM NA DIET ORDERED. 2. MONITOR WT, SKIN INTEGRITY, NUTRITTION RELATED LABS, AND PO INTAKE. Expected Outcomes/Goals Expected Outcomes/Goals 1. PT TO CONTINUE TO MEET >75% NUTRITIONAL NEEDS. 2. WT STABILITY, SKIN INTEGRITY WNL, NUTRITION RELATED LABS WNL.
--- NOTE | 2019-02-13 20:54 | Progress Notes ---
DATE: 02/13/2019 SUBJECTIVE: The patient is confused, still combative, still aggressive at times, agitated, unruly. He mumbles to self. Fair sleep, fair appetite, wants to mostly be left alone, very disoriented. ASSESSMENT: The patient remains symptomatic, not safe for a lower level of care, still unruly, irritable. PLAN: We will continue to monitor. I will be increasing dosing of Celexa today to try to calm down her behaviors, irritabilities and aggressive behaviors. [facility]# [id number]
[2019-02-13] MEDS: Atorvastatin Calcium 10 MG TAB PO SCH (21:46)
[2019-02-14] MEDS: Aspirin 81mg Chewable Tab PO SCH (09:12)
[2019-02-14] MEDS: Multivitamin w/ Minerals Tab PO SCH (09:12)
[2019-02-14] MEDS: Lactobacillus Rhamnosus GG 15 Billion CFU CAP.SPRINK PO SCH (09:13)
--- NOTE | 2019-02-14 17:33 | Internal Medicine Prog Note ---
Internal Medicine Subjective - Subjective Service Date: 02/14/19 Patient is:: asleep, agitated, confused Patient Complaints of:: other Per staff patient has:: no adverse event, no episodes of fall, agitated, combative Internal Medicine Objective - Physical Exam Vitals and I&O: Vital Signs Temp 97.8 F 02/14/19 14:00 Pulse 75 02/14/19 14:00 Resp 19 02/14/19 14:00 BP 134/70 02/14/19 14:00 Pulse Ox 95 02/14/19 14:00 Intake & Output 02/13/19 02/14/19 02/14/19 18:59 06:59 18:59 Intake Total 240 Balance 240 Intake: Oral 240 Other: # Voids 2 # Bowel Movements 0 Active Medications: Current Medications Acetaminophen (Tylenol) 650 mg PO Q4HR PRN PRN Reason: Fever > 101 OR MILD PAIN Stop: 04/08/19 00:18 Acetaminophen (Tylenol Extra Strength) 1,000 mg PO Q4H PRN PRN Reason: Pain (Moderate) Stop: 04/08/19 00:18 Aspirin (Aspirin Chewable) 81 mg PO DAILY [facility] Stop: 04/08/19 08:59 Last Admin: 02/14/19 09:12 Dose: 81 mg Atorvastatin Calcium (Lipitor) 10 mg PO HS [facility]; Protocol Stop: 04/08/19 20:59 Last Admin: 02/13/19 21:46 Dose: 10 mg Calcium Carbonate (Os-Sonia) 1,250 mg PO DAILY [facility] Stop: 04/08/19 08:59 Last Admin: 02/14/19 09:11 Dose: 1,250 mg Docusate Sodium (Colace) 250 mg PO DAILY [facility] Stop: 04/08/19 08:59 Last Admin: 02/14/19 09:12 Dose: 250 mg Ergocalciferol (Vitamin D2) 50,000 iu PO Fr@0800 [facility] Stop: 04/09/19 07:59 Last Admin: 02/08/19 10:49 Dose: 50,000 iu Hydralazine HCl (Apresoline) 20 mg PO TID [facility] Stop: 04/08/19 08:59 Last Admin: 02/14/19 09:13 Dose: 20 mg Lactobacillus Rhamnosus (Culturelle 15b) 1 each PO DAILY [facility] Stop: 04/10/19 08:59 Last Admin: 02/14/19 09:13 Dose: 1 each Lorazepam (Ativan) 0.5 mg PO Q4H PRN; Protocol PRN Reason: Anxiety Stop: 04/08/19 00:09 Magnesium Hydroxide (Milk Of Magnesia) 30 ml PO HS PRN PRN Reason: Constipation Stop: 04/08/19 00:18 Memantine (Namenda) 10 mg PO Q12HR [facility] Stop: 04/08/19 00:29 Last Admin: 02/14/19 09:14 Dose: 10 mg Miscellaneous (Probiotic Screen) 1 ea MC PRN PRN PRN Reason: PROTOCOL Stop: 04/09/19 10:51 Miscellaneous (Misc Oral Tab) 1.5 tab PO HS [facility] Stop: 04/14/19 20:59 Last Admin: 02/13/19 21:44 Dose: 1.5 tab Quetiapine Fumarate (Seroquel) 25 mg PO BID [facility]; Protocol Stop: 04/08/19 08:59 Last Admin: 02/14/19 09:12 Dose: 25 mg Quetiapine Fumarate (Seroquel) 25 mg PO HS [facility]; Protocol Stop: 04/08/19 20:59 Last Admin: 02/13/19 21:46 Dose: 25 mg Zolpidem Tartrate (Ambien) 5 mg PO HS PRN PRN Reason: Insomnia Stop: 04/08/19 00:09 General: weak HEENT: NC/AT Neck: Supple Lungs: CTAB Cardiovascular: RRR Abdomen: soft, non-tender Extremities: clear Neurological: no change - Procedures Procedures: Procedures Procedure Code Date GROUP PSYCHOTHERAPY GZHZZZZ 11/25/16 SUPPLEMENT L COM CAROTID WITH SYNTH SUB, OPEN APPROACH [id number] 07/06/18 Nutritional Asmnt/Malnutr-PDOC - Dietary Evaluation Malnutrition Findings (Please click <Entered> for more info): Nutritional Asmnt/Malnutrition Start: 02/08/19 15: 42 Text: Status: Active Freq: Protocol: Document 02/08/19 15:44 INDIO (Rec: 02/08/19 16:13 [facility] [email or web address]) Nutritional Asmnt/Malnutrition Patient General Information Nutritional Screening Moderate Risk Diagnosis PSYCHOSIS Pertinent Medical Hx/Surgical Hx HYPERCHOLESTEROLEMIA, HTN, PSYCHOSIS, DEMENTIA, MSRA Subjective Information PT IS A 83 YEAR OLD FEMALE ADMITTED FROM MED/SURG UNIT D/ T INCREASED AGITATION AND REFUSING MEDICATIONS. HT: 53 WT: 180 (81.8KG) BMI: 31.89 (OBESE) ABW: 131 LB (59.5KG) GI: WNL BM: 02/08 X1 I/O: 1520/ NO NOTED SKIN: WNL SUSAN: 15 DIET ORDER: 2GM NA ESTIMATED ENERGY NEEDS: 2315-8723 KCALS (20-25 KCALS/ KG) 65-74 G PRO (0.8-0.9 G/KG) 6226-1872 ML FLUIDS (35-40 ML/ KG) PT PO INTAKE: 75-100% DIETARY IS CURRENTLY PROVIDING 2434 KCALS AND 96 GM PRO. WITH PT PO INTAKE, PT IS RECEIVING AN ESTIMATED 100%+ KCAL AND 100%+ PRO REQUIREMENTS- ADEQUATE. Pertinent Medications LIPITOR, OS-SONIA, COLACE, MOM Pertinent Labs 02/04: ALB 3.5 02/05: HGB/HCT 11.9/36.1, BUN/ CR 26/0.9 07/10: POC GLUC 59 Nutritional Hx/Data Height 5 ft 3 in Height (Calculated Centimeters) 160.0 Current Weight (lbs) 180 lb Weight (Calculated Kilograms) 81.6 Weight (Calculated Grams) 15612.6 [place] Body Weight 115 % [place] Body Weight 157 Body Mass Index (BMI) 31.8 Weight Status Obese GI Symptoms GI Symptoms None Last BM 02/08 X1 Skin Integrity/Comment: WNL Current %PO Good (75-100%) Estimated Nutritional Goals BEE in Kcals: Using Current wt Calories/Kcals/Kg 20-25 Kcals Calculated 3743-9548 Protein g/k.8-0.9 Protein Calculated 65-74 Fluid: ml 4231-0875 Nutritional Problem No current Nutrition Prob Problem N/A Etiology N/A Signs/Symptoms: N/A Malnutrition Related to Morbid Obesity Malnutrition related to morbid obesity No Intervention/Recommendation Comments 1. CONTINUE 2 GM NA DIET ORDERED. 2. MONITOR WT, SKIN INTEGRITY, NUTRITTION RELATED LABS, AND PO INTAKE. Expected Outcomes/Goals Expected Outcomes/Goals 1. PT TO CONTINUE TO MEET >75% NUTRITIONAL NEEDS. 2. WT STABILITY, SKIN INTEGRITY WNL, NUTRITION RELATED LABS WNL.
[2019-02-14] MEDS: Atorvastatin Calcium 10 MG TAB PO SCH (21:21)
--- NOTE | 2019-02-14 22:16 | Progress Notes ---
DATE: 02/14/2019 SUBJECTIVE: The patient is currently in the hospital, noted to be very confused, disoriented, somewhat suspicious of others, impulsive, ongoing concerns that she will act out, not trusting of staff, yelling at staff at times, still unruly, still with some yelling episodes, still seems to be unstable, but some improvement noted. Generally calmer. Medications were noted. We will continue to monitor, attempt to also secure a safe disposition. [facility]# [id number]
[2019-02-15] MEDS: Aspirin 81mg Chewable Tab PO SCH (09:53)
[2019-02-15] MEDS: Lactobacillus Rhamnosus GG 15 Billion CFU CAP.SPRINK PO SCH (09:53)
[2019-02-15] MEDS: Multivitamin w/ Minerals Tab PO SCH (09:53)
--- NOTE | 2019-02-15 15:44 | Internal Medicine Prog Note ---
Internal Medicine Subjective - Subjective Service Date: 02/15/19 Patient seen and examined:: with staff Patient is:: asleep, agitated, confused Patient Complaints of:: other Per staff patient has:: no adverse event, no episodes of fall, agitated, combative Internal Medicine Objective - Physical Exam Vitals and I&O: Vital Signs Temp 98.0 F 02/15/19 06:33 Pulse 79 02/15/19 09:52 Resp 20 02/15/19 11:04 BP 134/62 02/15/19 09:52 Pulse Ox 91 02/15/19 06:33 Intake & Output 02/14/19 02/15/19 02/15/19 18:59 06:59 18:59 Intake Total 950 240 Balance 950 240 Intake: Oral 950 240 Other: # Voids 4 2 # Bowel Movements 1 0 Active Medications: Current Medications Acetaminophen (Tylenol) 650 mg PO Q4HR PRN PRN Reason: Fever > 101 OR MILD PAIN Stop: 04/08/19 00:18 Acetaminophen (Tylenol Extra Strength) 1,000 mg PO Q4H PRN PRN Reason: Pain (Moderate) Stop: 04/08/19 00:18 Aspirin (Aspirin Chewable) 81 mg PO DAILY [facility] Stop: 04/08/19 08:59 Last Admin: 02/15/19 09:53 Dose: 81 mg Atorvastatin Calcium (Lipitor) 10 mg PO HS [facility]; Protocol Stop: 04/08/19 20:59 Last Admin: 02/14/19 21:21 Dose: 10 mg Calcium Carbonate (Os-Sonia) 1,250 mg PO DAILY [facility] Stop: 04/08/19 08:59 Last Admin: 02/15/19 09:52 Dose: 1,250 mg Docusate Sodium (Colace) 250 mg PO DAILY [facility] Stop: 04/08/19 08:59 Last Admin: 02/15/19 09:53 Dose: 250 mg Ergocalciferol (Vitamin D2) 50,000 iu PO Fr@0800 [facility] Stop: 04/09/19 07:59 Last Admin: 02/15/19 09:50 Dose: Not Given Hydralazine HCl (Apresoline) 20 mg PO TID [facility] Stop: 04/08/19 08:59 Last Admin: 02/15/19 09:52 Dose: 20 mg Lactobacillus Rhamnosus (Culturelle 15b) 1 each PO DAILY [facility] Stop: 04/10/19 08:59 Last Admin: 02/15/19 09:53 Dose: 1 each Lorazepam (Ativan) 0.5 mg PO Q4H PRN; Protocol PRN Reason: Anxiety Stop: 04/08/19 00:09 Magnesium Hydroxide (Milk Of Magnesia) 30 ml PO HS PRN PRN Reason: Constipation Stop: 04/08/19 00:18 Memantine (Namenda) 10 mg PO Q12HR [facility] Stop: 04/08/19 00:29 Last Admin: 02/15/19 09:53 Dose: 10 mg Miscellaneous (Probiotic Screen) 1 ea MC PRN PRN PRN Reason: PROTOCOL Stop: 04/09/19 10:51 Miscellaneous (Misc Oral Tab) 1.5 tab PO HS [facility] Stop: 04/14/19 20:59 Last Admin: 02/14/19 21:22 Dose: 1.5 tab Quetiapine Fumarate (Seroquel) 25 mg PO BID [facility]; Protocol Stop: 04/08/19 08:59 Last Admin: 02/15/19 09:53 Dose: 25 mg Quetiapine Fumarate (Seroquel) 25 mg PO HS [facility]; Protocol Stop: 04/08/19 20:59 Last Admin: 02/14/19 21:21 Dose: 25 mg Zolpidem Tartrate (Ambien) 5 mg PO HS PRN PRN Reason: Insomnia Stop: 04/08/19 00:09 Physical Exam: 83 y/o female patient is very confused, continues to have episodes of yelling and screaming, still very agitated. General: weak HEENT: NC/AT Neck: Supple Lungs: CTAB Cardiovascular: RRR Abdomen: soft, non-tender Extremities: clear Neurological: no change - Procedures Procedures: Procedures Procedure Code Date GROUP PSYCHOTHERAPY GZHZZZZ 11/25/16 SUPPLEMENT L COM CAROTID WITH SYNTH SUB, OPEN APPROACH [id number] 07/06/18 Internal Medicine Assmt/Plan - Assessment Assessment: Acute Uti. Dementia. Hypercholesterolemia. Psychosis. - Plan Plan: Continuation of care. Monitor Vitals and Labs. Continue present meds as directed. Monitor Diet/ Low sodium diet /Nutritional support. Psych management per Psych. Pain Management. Fall precaution, frequent nursing rounds, and as needed restraints to prevent fall. Safety precaution. Supportive care. Continue collaborating with consulting specialists, case management and nursing team. Will Monitor patient and continue present management. Nutritional Asmnt/Malnutr-PDOC - Dietary Evaluation Malnutrition Findings (Please click <Entered> for more info): Nutritional Asmnt/Malnutrition Start: 02/08/19 15: 42 Text: Status: Active Freq: Protocol: Document 02/08/19 15:44 INDIO (Rec: 02/08/19 16:13 INDIO [email or web address]) Nutritional Asmnt/Malnutrition Patient General Information Nutritional Screening Moderate Risk Diagnosis PSYCHOSIS Pertinent Medical Hx/Surgical Hx HYPERCHOLESTEROLEMIA, HTN, PSYCHOSIS, DEMENTIA, MSRA Subjective Information PT IS A 83 YEAR OLD FEMALE ADMITTED FROM MED/SURG UNIT D/ T INCREASED AGITATION AND REFUSING MEDICATIONS. HT: 53 WT: 180 (81.8KG) BMI: 31.89 (OBESE) ABW: 131 LB (59.5KG) GI: WNL BM: 02/08 X1 I/O: 1520/ NO NOTED SKIN: WNL SUSAN: 15 DIET ORDER: 2GM NA ESTIMATED ENERGY NEEDS: 4003-6657 KCALS (20-25 KCALS/ KG) 65-74 G PRO (0.8-0.9 G/KG) 3246-1771 ML FLUIDS (35-40 ML/ KG) PT PO INTAKE: 75-100% DIETARY IS CURRENTLY PROVIDING 2434 KCALS AND 96 GM PRO. WITH PT PO INTAKE, PT IS RECEIVING AN ESTIMATED 100%+ KCAL AND 100%+ PRO REQUIREMENTS- ADEQUATE. Pertinent Medications LIPITOR, OS-SONIA, COLACE, MOM Pertinent Labs 02/04: ALB 3.5 02/05: HGB/HCT 11.9/36.1, BUN/ CR 26/0.9 07/10: POC GLUC 59 Nutritional Hx/Data Height 1.6 m Height (Calculated Centimeters) 160.0 Current Weight (lbs) 81.647 kg Weight (Calculated Kilograms) 81.6 Weight (Calculated Grams) 27381.6 [place] Body Weight 115 % [place] Body Weight 157 Body Mass Index (BMI) 31.8 Weight Status Obese GI Symptoms GI Symptoms None Last BM 02/08 X1 Skin Integrity/Comment: WNL Current %PO Good (75-100%) Estimated Nutritional Goals BEE in Kcals: Using Current wt Calories/Kcals/Kg 20-25 Kcals Calculated 9090-6530 Protein g/k.8-0.9 Protein Calculated 65-74 Fluid: ml 6514-4295 Nutritional Problem No current Nutrition Prob Problem N/A Etiology N/A Signs/Symptoms: N/A Malnutrition Related to Morbid Obesity Malnutrition related to morbid obesity No Intervention/Recommendation Comments 1. CONTINUE 2 GM NA DIET ORDERED. 2. MONITOR WT, SKIN INTEGRITY, NUTRITTION RELATED LABS, AND PO INTAKE. Expected Outcomes/Goals Expected Outcomes/Goals 1. PT TO CONTINUE TO MEET >75% NUTRITIONAL NEEDS. 2. WT STABILITY, SKIN INTEGRITY WNL, NUTRITION RELATED LABS WNL.
[2019-02-15] MEDS: Atorvastatin Calcium 10 MG TAB PO SCH (20:51)
[2019-02-16] MEDS: Aspirin 81mg Chewable Tab PO SCH (09:28)
[2019-02-16] MEDS: Lactobacillus Rhamnosus GG 15 Billion CFU CAP.SPRINK PO SCH (09:28)
[2019-02-16] MEDS: Multivitamin w/ Minerals Tab PO SCH (09:29)
--- NOTE | 2019-02-16 16:29 | Progress Notes ---
DATE: 02/16/2019 SUBJECTIVE: The patient was seen in her room. The patient is asleep, but is easily arousable. The patient is a poor historian due to medical condition. The patient appears to be confused and poor historian, appears to have agitation and somewhat suspicious. Otherwise, the patient appears to be in no acute distress. OBJECTIVE: VITAL SIGNS: Temperature 97.9, heart rate of 80, blood pressure 113/69, respiration 19, 94% on room air. HEENT: Head is atraumatic and normocephalic. Eyes: Bilateral conjunctivae are clear. Bilateral pupils are equally round and reactive. NECK: Supple. No JVD. CARDIOVASCULAR: S1 and S2, without murmur. PULMONARY: Clear to auscultation. ABDOMEN: Soft and nontender without guarding. Positive bowel sounds. MUSCULOSKELETAL: No clubbing. No cyanosis noted. ASSESSMENT: 1. Dementia. 2. Hypertension. 3. Hyperlipidemia. 4. Osteoarthritis. 5. Vitamin D deficiency. PLAN: We will keep the patient to inpatient Psychiatric Unit. We will follow up with a psychiatrist to monitor the patient's condition and behavior and put the patient on aspiration precaution and fall precaution. Treatment plans were discussed with the patient's nurse. Treatment plans were discussed with Dr. Wilson. J[facility]# [id number]
--- NOTE | 2019-02-16 19:52 | Progress Notes ---
DATE: 02/15/2019 SUBJECTIVE: The patient is confused, disoriented, still impulsive, unpredictable, but generally calmer, somewhat cooperative, still irritable, yelling, demanding, difficult to care for her because of her behavioral disturbances, agitation, escalation of behaviors, poor frustration tolerance. AO to name only, really has no idea what is going on or where she is. Medications were noted, seems to be tolerating well. Vitals were reviewed. We will continue to monitor for any side effects and behavioral disturbances. [facility]# [id number]
[2019-02-16] MEDS: Atorvastatin Calcium 10 MG TAB PO SCH (22:00)
[2019-02-17] MEDS: Multivitamin w/ Minerals Tab PO SCH (09:00)
[2019-02-17] MEDS: Lactobacillus Rhamnosus GG 15 Billion CFU CAP.SPRINK PO SCH (09:00)
--- NOTE | 2019-02-17 10:32 | Progress Notes ---
DATE: 02/16/2019 PHYSICIAN: Dr. Karen Price. COVERING FOR: Gasper Jimenez MD SUBJECTIVE: The patient is interviewed. The case was discussed with staff and the chart was reviewed. The patient per the staff has been calm. She has been taking her medications and making her needs known. The patient was interviewed at bedside. The patient is irritable. She is also disorganized and confused. She believes that the year is 2004. She is unwilling to engage much more than this with the interview. She reports that she is tired and she does not want to answer any questions at this time. MENTAL STATUS EXAMINATION: The patient is an elderly female, sleeping comfortably, arouses to her name. She is irritable with the interviewer. She is uncooperative. Her speech is soft and with an irritable tone. Her thought process is concrete. She denies any suicidal or homicidal thoughts. She denies any hallucinations or paranoia, but she is somewhat suspicious and paranoid of others and not willing to engage much. The patient also is alert and oriented only to her name. Her insight, judgment and impulse control are poor. ASSESSMENT: This is an 83-year-old female admitted to [facility]. The patient at this time continues with episodes of mood swings, yelling and also paranoia. She appears to be improving on her current regimen of medications, but does continue with symptoms at this time. No side effects noted. The patient in addition is irritable and disorganized and continues to demonstrate poor frustration tolerance. PLAN: I will continue the patient's acute hospitalization. We will continue the medications as prescribed including Namenda and Seroquel. We will also encourage the patient to verbalize her needs and participate in group and milieu therapy. [facility]# [id number]
--- NOTE | 2019-02-17 13:31 | Internal Medicine Prog Note ---
Internal Medicine Subjective - Subjective Service Date: 02/17/19 Patient seen and examined:: with staff Patient is:: asleep, agitated, confused Patient Complaints of:: other Per staff patient has:: no adverse event, no episodes of fall, agitated, combative Internal Medicine Objective - Physical Exam Vitals and I&O: Vital Signs Temp 97.7 F 02/17/19 05:49 Pulse 82 02/17/19 09:46 Resp 20 02/17/19 05:49 BP 139/75 02/17/19 09:46 Pulse Ox 95 02/17/19 05:49 Intake & Output 02/16/19 02/17/19 02/17/19 18:59 06:59 18:59 Intake Total 1350 240 Balance 1350 240 Intake: Oral 1350 240 Other: # Voids 3 2 # Bowel Movements 0 Active Medications: Current Medications Acetaminophen (Tylenol) 650 mg PO Q4HR PRN PRN Reason: Fever > 101 OR MILD PAIN Stop: 04/08/19 00:18 Acetaminophen (Tylenol Extra Strength) 1,000 mg PO Q4H PRN PRN Reason: Pain (Moderate) Stop: 04/08/19 00:18 Aspirin (Aspirin Chewable) 81 mg PO DAILY [facility] Stop: 04/08/19 08:59 Last Admin: 02/16/19 09:28 Dose: 81 mg Atorvastatin Calcium (Lipitor) 10 mg PO HS [facility]; Protocol Stop: 04/08/19 20:59 Last Admin: 02/16/19 22:00 Dose: Not Given Calcium Carbonate (Os-Sonia) 1,250 mg PO DAILY [facility] Stop: 04/08/19 08:59 Last Admin: 02/16/19 09:29 Dose: Not Given Docusate Sodium (Colace) 250 mg PO DAILY [facility] Stop: 04/08/19 08:59 Last Admin: 02/16/19 09:28 Dose: 250 mg Ergocalciferol (Vitamin D2) 50,000 iu PO Fr@0800 [facility] Stop: 04/09/19 07:59 Last Admin: 02/15/19 09:50 Dose: Not Given Hydralazine HCl (Apresoline) 20 mg PO TID [facility] Stop: 04/08/19 08:59 Last Admin: 02/17/19 09:46 Dose: 20 mg Lactobacillus Rhamnosus (Culturelle 15b) 1 each PO DAILY [facility] Stop: 04/10/19 08:59 Last Admin: 02/16/19 09:28 Dose: 1 each Lorazepam (Ativan) 0.5 mg PO Q4H PRN; Protocol PRN Reason: Anxiety Stop: 04/08/19 00:09 Last Admin: 02/17/19 09:46 Dose: 0.5 mg Magnesium Hydroxide (Milk Of Magnesia) 30 ml PO HS PRN PRN Reason: Constipation Stop: 04/08/19 00:18 Memantine (Namenda) 10 mg PO Q12HR [facility] Stop: 04/08/19 00:29 Last Admin: 02/17/19 09:45 Dose: 10 mg Miscellaneous (Probiotic Screen) 1 ea [facility] PRN PRN PRN Reason: PROTOCOL Stop: 04/09/19 10:51 Miscellaneous (Misc Oral Tab) 1.5 tab PO HS [facility] Stop: 04/14/19 20:59 Last Admin: 02/16/19 22:00 Dose: Not Given Quetiapine Fumarate (Seroquel) 25 mg PO BID [facility]; Protocol Stop: 04/08/19 08:59 Last Admin: 02/17/19 09:46 Dose: 25 mg Quetiapine Fumarate (Seroquel) 25 mg PO HS [facility]; Protocol Stop: 04/08/19 20:59 Last Admin: 02/16/19 22:00 Dose: Not Given Zolpidem Tartrate (Ambien) 5 mg PO HS PRN PRN Reason: Insomnia Stop: 04/08/19 00:09 Last Admin: 02/15/19 20:56 Dose: 5 mg Physical Exam: 83 y/o female patient is paranoid, have episodes of yelling and screaming, continues to very agitated. General: weak HEENT: NC/AT Neck: Supple Lungs: CTAB Cardiovascular: RRR Abdomen: soft, non-tender Extremities: clear Neurological: no change - Procedures Procedures: Procedures Procedure Code Date GROUP PSYCHOTHERAPY GZHZZZZ 11/25/16 SUPPLEMENT L COM CAROTID WITH SYNTH SUB, OPEN APPROACH [id number] 07/06/18 Internal Medicine Assmt/Plan - Assessment Assessment: Acute Uti. Dementia. Hypercholesterolemia. Psychosis. - Plan Plan: Continuation of care. Monitor Vitals and Labs. Continue present meds as directed. Monitor Diet/ Low sodium diet /Nutritional support. Psych management per Psych. Pain Management. Fall precaution, frequent nursing rounds, and as needed restraints to prevent fall. Safety precaution. Supportive care. Continue collaborating with consulting specialists, case management and nursing team. Will Monitor patient and continue present management. Nutritional Asmnt/Malnutr-PDOC - Dietary Evaluation Malnutrition Findings (Please click <Entered> for more info): Nutritional Asmnt/Malnutrition Start: 02/08/19 15: 42 Text: Status: Active Freq: Protocol: Document 02/08/19 15:44 JUANITOANGELIQUE (Rec: 02/08/19 16:13 INDIO [email or web address]) Nutritional Asmnt/Malnutrition Patient General Information Nutritional Screening Moderate Risk Diagnosis PSYCHOSIS Pertinent Medical Hx/Surgical Hx HYPERCHOLESTEROLEMIA, HTN, PSYCHOSIS, DEMENTIA, MSRA Subjective Information PT IS A 83 YEAR OLD FEMALE ADMITTED FROM MED/SURG UNIT D/ T INCREASED AGITATION AND REFUSING MEDICATIONS. HT: 53 WT: 180 (81.8KG) BMI: 31.89 (OBESE) ABW: 131 LB (59.5KG) GI: WNL BM: 02/08 X1 I/O: 1520/ NO NOTED SKIN: WNL SUSAN: 15 DIET ORDER: 2GM NA ESTIMATED ENERGY NEEDS: 8769-0407 KCALS (20-25 KCALS/ KG) 65-74 G PRO (0.8-0.9 G/KG) 8542-2151 ML FLUIDS (35-40 ML/ KG) PT PO INTAKE: 75-100% DIETARY IS CURRENTLY PROVIDING 2434 KCALS AND 96 GM PRO. WITH PT PO INTAKE, PT IS RECEIVING AN ESTIMATED 100%+ KCAL AND 100%+ PRO REQUIREMENTS- ADEQUATE. Pertinent Medications LIPITOR, OS-SONIA, COLACE, MOM Pertinent Labs 02/04: ALB 3.5 02/05: HGB/HCT 11.9/36.1, BUN/ CR 26/0.9 07/10: POC GLUC 59 Nutritional Hx/Data Height 1.6 m Height (Calculated Centimeters) 160.0 Current Weight (lbs) 81.647 kg Weight (Calculated Kilograms) 81.6 Weight (Calculated Grams) 09117.6 [place] Body Weight 115 % [place] Body Weight 157 Body Mass Index (BMI) 31.8 Weight Status Obese GI Symptoms GI Symptoms None Last BM 02/08 X1 Skin Integrity/Comment: WNL Current %PO Good (75-100%) Estimated Nutritional Goals BEE in Kcals: Using Current wt Calories/Kcals/Kg 20-25 Kcals Calculated 8014-4014 Protein g/k.8-0.9 Protein Calculated 65-74 Fluid: ml 0531-7370 Nutritional Problem No current Nutrition Prob Problem N/A Etiology N/A Signs/Symptoms: N/A Malnutrition Related to Morbid Obesity Malnutrition related to morbid obesity No Intervention/Recommendation Comments 1. CONTINUE 2 GM NA DIET ORDERED. 2. MONITOR WT, SKIN INTEGRITY, NUTRITTION RELATED LABS, AND PO INTAKE. Expected Outcomes/Goals Expected Outcomes/Goals 1. PT TO CONTINUE TO MEET >75% NUTRITIONAL NEEDS. 2. WT STABILITY, SKIN INTEGRITY WNL, NUTRITION RELATED LABS WNL.
[2019-02-17] MEDS: Aspirin 81mg Chewable Tab PO SCH (17:34)
[2019-02-17] MEDS: Atorvastatin Calcium 10 MG TAB PO SCH (20:57)
--- NOTE | 2019-02-18 02:00 | Progress Notes ---
DATE: 02/17/2019 Covering for Gasper Jimenez M.D. SUBJECTIVE: The patient was interviewed. The case was discussed with staff, and the chart was reviewed. Per the staff, the patient has been calm. She sleeps for most of the day. She has been taking her medications and makes her needs known. The patient was interviewed this morning at bedside. She is pleasantly confused. She is irritable at times, but she overall reports that she is doing well. No side effects to the medication. Reports that she feels tired and would like to go back to sleep. She otherwise has no other complaints, unwilling to engage very much with the interview, but denies any suicidal or homicidal thoughts. MENTAL STATUS EXAMINATION: The patient is an elderly female, sleeping comfortably in bed, arouses to her name. She is irritable with the provider at times and other times, pleasant. She is uncooperative overall. Her speech is soft with an irritable tone. Her thought process is concrete. She denies any suicidal or homicidal thoughts. She denies any hallucinations or paranoia. She is somewhat suspicious and paranoid of others including this provider. She is not willing to engage much. The patient is alert and oriented to her name. Her insight, judgment and impulse control are poor. ASSESSMENT: An 83-year-old female admitted to [facility]. The patient at this time continues with episodes of mood swings, but has been improving, much more calm, much more pleasant, lying comfortably in her bed, less calling out and shouting. The patient does have some irritability, but is easily redirectable and mostly pleasant. No side effects noted to the medications. Denies any suicidal or homicidal thoughts. PLAN: We will continue the patient's acute hospitalization. We will continue medications prescribed including Namenda and Seroquel. Also, continue to encourage the patient to participate in group and milieu therapy. [facility]# [id number]
[2019-02-18] MEDS: Multivitamin w/ Minerals Tab PO SCH (09:00)
[2019-02-18] MEDS: Lactobacillus Rhamnosus GG 15 Billion CFU CAP.SPRINK PO SCH (09:01)
[2019-02-18] MEDS: Aspirin 81mg Chewable Tab PO SCH (09:01)
--- NOTE | 2019-02-18 11:08 | Internal Medicine Prog Note ---
Internal Medicine Subjective - Subjective Service Date: 02/18/19 Patient seen and examined:: with staff Patient is:: asleep, agitated, confused Patient Complaints of:: other Per staff patient has:: no adverse event, no episodes of fall, agitated, combative Internal Medicine Objective - Physical Exam Vitals and I&O: Vital Signs Temp 97.9 F 02/18/19 05:55 Pulse 81 02/18/19 09:01 Resp 20 02/18/19 08:00 BP 127/78 02/18/19 09:01 Pulse Ox 91 02/18/19 05:55 Intake & Output 02/17/19 02/18/19 02/18/19 18:59 06:59 18:59 Intake Total 800 240 Balance 800 240 Intake: Oral 800 240 Other: # Voids 2 2 # Bowel Movements 0 Active Medications: Current Medications Acetaminophen (Tylenol) 650 mg PO Q4HR PRN PRN Reason: Fever > 101 OR MILD PAIN Stop: 04/08/19 00:18 Acetaminophen (Tylenol Extra Strength) 1,000 mg PO Q4H PRN PRN Reason: Pain (Moderate) Stop: 04/08/19 00:18 Aspirin (Aspirin Chewable) 81 mg PO DAILY [facility] Stop: 04/08/19 08:59 Last Admin: 02/18/19 09:01 Dose: 81 mg Atorvastatin Calcium (Lipitor) 10 mg PO HS [facility]; Protocol Stop: 04/08/19 20:59 Last Admin: 02/17/19 20:57 Dose: 10 mg Calcium Carbonate (Os-Sonia) 1,250 mg PO DAILY [facility] Stop: 04/08/19 08:59 Last Admin: 02/18/19 09:00 Dose: 1,250 mg Docusate Sodium (Colace) 250 mg PO DAILY [facility] Stop: 04/08/19 08:59 Last Admin: 02/18/19 09:00 Dose: 250 mg Ergocalciferol (Vitamin D2) 50,000 iu PO Fr@0800 [facility] Stop: 04/09/19 07:59 Last Admin: 02/15/19 09:50 Dose: Not Given Hydralazine HCl (Apresoline) 20 mg PO TID [facility] Stop: 04/08/19 08:59 Last Admin: 02/18/19 09:01 Dose: 20 mg Lactobacillus Rhamnosus (Culturelle 15b) 1 each PO DAILY [facility] Stop: 04/10/19 08:59 Last Admin: 02/18/19 09:01 Dose: 1 each Lorazepam (Ativan) 0.5 mg PO Q4H PRN; Protocol PRN Reason: Anxiety Stop: 04/08/19 00:09 Last Admin: 02/17/19 09:46 Dose: 0.5 mg Magnesium Hydroxide (Milk Of Magnesia) 30 ml PO HS PRN PRN Reason: Constipation Stop: 04/08/19 00:18 Memantine (Namenda) 10 mg PO Q12HR [facility] Stop: 04/08/19 00:29 Last Admin: 02/18/19 09:01 Dose: 10 mg Miscellaneous (Probiotic Screen) 1 ea MC PRN PRN PRN Reason: PROTOCOL Stop: 04/09/19 10:51 Miscellaneous (Misc Oral Tab) 1.5 tab PO HS [facility] Stop: 04/14/19 20:59 Last Admin: 02/17/19 21:06 Dose: 1.5 tab Quetiapine Fumarate (Seroquel) 25 mg PO BID [facility]; Protocol Stop: 04/08/19 08:59 Last Admin: 02/18/19 09:01 Dose: 25 mg Quetiapine Fumarate (Seroquel) 25 mg PO HS [facility]; Protocol Stop: 04/08/19 20:59 Last Admin: 02/17/19 20:58 Dose: 25 mg Zolpidem Tartrate (Ambien) 5 mg PO HS PRN PRN Reason: Insomnia Stop: 04/08/19 00:09 Last Admin: 02/17/19 20:58 Dose: 5 mg Physical Exam: 83 y/o female patient is paranoid, mood swings, uncooperative, still has episodes of yelling and screaming,continues to be easily agitated. General: weak HEENT: NC/AT Neck: Supple Lungs: CTAB Cardiovascular: RRR Abdomen: soft, non-tender Extremities: clear Neurological: no change - Procedures Procedures: Procedures Procedure Code Date GROUP PSYCHOTHERAPY GZHZZZZ 11/25/16 SUPPLEMENT L COM CAROTID WITH SYNTH SUB, OPEN APPROACH [id number] 07/06/18 Internal Medicine Assmt/Plan - Assessment Assessment: Acute Uti. Dementia. Hypercholesterolemia. Psychosis. - Plan Plan: Continuation of care. Monitor Vitals and Labs. Continue present meds as directed. Monitor Diet/ Low sodium diet /Nutritional support. Psych management per Psych. Pain Management. Fall precaution, frequent nursing rounds, and as needed restraints to prevent fall. Safety precaution. Supportive care. Continue collaborating with consulting specialists, case management and nursing team. Will Monitor patient and continue present management. Nutritional Asmnt/Malnutr-PDOC - Dietary Evaluation Malnutrition Findings (Please click <Entered> for more info): Nutritional Asmnt/Malnutrition Start: 02/08/19 15: 42 Text: Status: Active Freq: Protocol: Document 02/08/19 15:44 INDIO (Rec: 02/08/19 16:13 [place] [email or web address]) Nutritional Asmnt/Malnutrition Patient General Information Nutritional Screening Moderate Risk Diagnosis PSYCHOSIS Pertinent Medical Hx/Surgical Hx HYPERCHOLESTEROLEMIA, HTN, PSYCHOSIS, DEMENTIA, MSRA Subjective Information PT IS A 83 YEAR OLD FEMALE ADMITTED FROM MED/SURG UNIT D/ T INCREASED AGITATION AND REFUSING MEDICATIONS. HT: 53 WT: 180 (81.8KG) BMI: 31.89 (OBESE) ABW: 131 LB (59.5KG) GI: WNL BM: 02/08 X1 I/O: 1520/ NO NOTED SKIN: WNL SUSAN: 15 DIET ORDER: 2GM NA ESTIMATED ENERGY NEEDS: 0689-0453 KCALS (20-25 KCALS/ KG) 65-74 G PRO (0.8-0.9 G/KG) 3770-4483 ML FLUIDS (35-40 ML/ KG) PT PO INTAKE: 75-100% DIETARY IS CURRENTLY PROVIDING 2434 KCALS AND 96 GM PRO. WITH PT PO INTAKE, PT IS RECEIVING AN ESTIMATED 100%+ KCAL AND 100%+ PRO REQUIREMENTS- ADEQUATE. Pertinent Medications LIPITOR, OS-SONIA, COLACE, MOM Pertinent Labs 02/04: ALB 3.5 02/05: HGB/HCT 11.9/36.1, BUN/ CR 26/0.9 07/10: POC GLUC 59 Nutritional Hx/Data Height 1.6 m Height (Calculated Centimeters) 160.0 Current Weight (lbs) 81.647 kg Weight (Calculated Kilograms) 81.6 Weight (Calculated Grams) 75716.6 [place] Body Weight 115 % [place] Body Weight 157 Body Mass Index (BMI) 31.8 Weight Status Obese GI Symptoms GI Symptoms None Last BM 02/08 X1 Skin Integrity/Comment: WNL Current %PO Good (75-100%) Estimated Nutritional Goals BEE in Kcals: Using Current wt Calories/Kcals/Kg 20-25 Kcals Calculated 2071-6063 Protein g/k.8-0.9 Protein Calculated 65-74 Fluid: ml 8644-5516 Nutritional Problem No current Nutrition Prob Problem N/A Etiology N/A Signs/Symptoms: N/A Malnutrition Related to Morbid Obesity Malnutrition related to morbid obesity No Intervention/Recommendation Comments 1. CONTINUE 2 GM NA DIET ORDERED. 2. MONITOR WT, SKIN INTEGRITY, NUTRITTION RELATED LABS, AND PO INTAKE. Expected Outcomes/Goals Expected Outcomes/Goals 1. PT TO CONTINUE TO MEET >75% NUTRITIONAL NEEDS. 2. WT STABILITY, SKIN INTEGRITY WNL, NUTRITION RELATED LABS WNL.
[2019-02-18] MEDS: Atorvastatin Calcium 10 MG TAB PO SCH (21:35)
--- NOTE | 2019-02-18 23:22 | Progress Notes ---
DATE: SUBJECTIVE: The patient was seen, chart was reviewed, discussed with staff. The patient is currently in the hospital, very confused, disoriented. No longer combative. Taking medications. States her mood is "calm." No aggressive behaviors. No outburst likely approaching her baseline. Her sleep and appetite, we will monitor for further 24 hours to confirm placement. JOB# [id number]
[2019-02-19] MEDS: Lactobacillus Rhamnosus GG 15 Billion CFU CAP.SPRINK PO SCH (09:00)
[2019-02-19] MEDS: Multivitamin w/ Minerals Tab PO SCH (09:00)
[2019-02-19] MEDS: Aspirin 81mg Chewable Tab PO SCH (09:00)
--- NOTE | 2019-02-19 11:44 | Internal Medicine Prog Note ---
Internal Medicine Subjective - Subjective Service Date: 02/19/19 Patient seen and examined:: with staff Patient is:: awake, verbal, agitated, confused Patient Complaints of:: other Per staff patient has:: no adverse event, no episodes of fall, agitated, combative Internal Medicine Objective - Physical Exam Vitals and I&O: Vital Signs Temp 97.4 F 02/19/19 05:56 Pulse 81 02/19/19 08:59 Resp 20 02/19/19 05:56 BP 125/68 02/19/19 08:59 Pulse Ox 94 02/19/19 05:56 Intake & Output 02/18/19 02/19/19 02/19/19 18:59 06:59 18:59 Intake Total 850 240 Balance 850 240 Intake: Oral 850 240 Other: # Voids 4 2 # Bowel Movements 1 0 Active Medications: Current Medications Acetaminophen (Tylenol) 650 mg PO Q4HR PRN PRN Reason: Fever > 101 OR MILD PAIN Stop: 04/08/19 00:18 Acetaminophen (Tylenol Extra Strength) 1,000 mg PO Q4H PRN PRN Reason: Pain (Moderate) Stop: 04/08/19 00:18 Aspirin (Aspirin Chewable) 81 mg PO DAILY [facility] Stop: 04/08/19 08:59 Last Admin: 02/19/19 09:00 Dose: 81 mg Atorvastatin Calcium (Lipitor) 10 mg PO HS [facility]; Protocol Stop: 04/08/19 20:59 Last Admin: 02/18/19 21:35 Dose: 10 mg Calcium Carbonate (Os-Sonia) 1,250 mg PO DAILY [facility] Stop: 04/08/19 08:59 Last Admin: 02/19/19 08:58 Dose: 1,250 mg Docusate Sodium (Colace) 250 mg PO DAILY [facility] Stop: 04/08/19 08:59 Last Admin: 02/19/19 08:58 Dose: 250 mg Ergocalciferol (Vitamin D2) 50,000 iu PO Fr@0800 [facility] Stop: 04/09/19 07:59 Last Admin: 02/15/19 09:50 Dose: Not Given Hydralazine HCl (Apresoline) 20 mg PO TID [facility] Stop: 04/08/19 08:59 Last Admin: 02/19/19 08:59 Dose: 20 mg Lactobacillus Rhamnosus (Culturelle 15b) 1 each PO DAILY [facility] Stop: 04/10/19 08:59 Last Admin: 02/19/19 09:00 Dose: 1 each Lorazepam (Ativan) 0.5 mg PO Q4H PRN; Protocol PRN Reason: Anxiety Stop: 04/08/19 00:09 Last Admin: 02/17/19 09:46 Dose: 0.5 mg Magnesium Hydroxide (Milk Of Magnesia) 30 ml PO HS PRN PRN Reason: Constipation Stop: 04/08/19 00:18 Memantine (Namenda) 10 mg PO Q12HR [facility] Stop: 04/08/19 00:29 Last Admin: 02/19/19 09:00 Dose: 10 mg Miscellaneous (Probiotic Screen) 1 ea MC PRN PRN PRN Reason: PROTOCOL Stop: 04/09/19 10:51 Miscellaneous (Misc Oral Tab) 1.5 tab PO HS [facility] Stop: 04/14/19 20:59 Last Admin: 02/18/19 21:34 Dose: 1.5 tab Quetiapine Fumarate (Seroquel) 25 mg PO BID [facility]; Protocol Stop: 04/08/19 08:59 Last Admin: 02/19/19 09:00 Dose: 25 mg Quetiapine Fumarate (Seroquel) 25 mg PO HS [facility]; Protocol Stop: 04/08/19 20:59 Last Admin: 02/18/19 21:36 Dose: 25 mg Zolpidem Tartrate (Ambien) 5 mg PO HS PRN PRN Reason: Insomnia Stop: 04/08/19 00:09 Last Admin: 02/17/19 20:58 Dose: 5 mg Physical Exam: 83 y/o female patient is still paranoid, having mood swings, uncooperative, still has episodes of yelling and screaming,continues to be easily agitated. General: weak HEENT: NC/AT Neck: Supple Lungs: CTAB Cardiovascular: RRR Abdomen: soft, non-tender Extremities: clear Neurological: no change - Procedures Procedures: Procedures Procedure Code Date GROUP PSYCHOTHERAPY GZHZZZZ 11/25/16 SUPPLEMENT L COM CAROTID WITH SYNTH SUB, OPEN APPROACH [id number] 07/06/18 Internal Medicine Assmt/Plan - Assessment Assessment: Paranoid. Acute Uti. Dementia. Hypercholesterolemia. Psychosis. - Plan Plan: Continuation of care. Monitor Vitals and Labs. Continue present meds as directed. Monitor Diet/ Low sodium diet /Nutritional support. Psych management per Psych. Pain Management. Fall precaution, frequent nursing rounds, and as needed restraints to prevent fall. Safety precaution. Supportive care. Continue collaborating with consulting specialists, case management and nursing team. Will Monitor patient and continue present management. Nutritional Asmnt/Malnutr-PDOC - Dietary Evaluation Malnutrition Findings (Please click <Entered> for more info): Nutritional Asmnt/Malnutrition Start: 02/08/19 15: 42 Text: Status: Active Freq: Protocol: Document 02/08/19 15:44 JUANITOANGELIQUE (Rec: 02/08/19 16:13 [place] [email or web address]) Nutritional Asmnt/Malnutrition Patient General Information Nutritional Screening Moderate Risk Diagnosis PSYCHOSIS Pertinent Medical Hx/Surgical Hx HYPERCHOLESTEROLEMIA, HTN, PSYCHOSIS, DEMENTIA, MSRA Subjective Information PT IS A 83 YEAR OLD FEMALE ADMITTED FROM MED/SURG UNIT D/ T INCREASED AGITATION AND REFUSING MEDICATIONS. HT: 53 WT: 180 (81.8KG) BMI: 31.89 (OBESE) ABW: 131 LB (59.5KG) GI: WNL BM: 02/08 X1 I/O: 1520/ NO NOTED SKIN: WNL SUSAN: 15 DIET ORDER: 2GM NA ESTIMATED ENERGY NEEDS: 3215-3166 KCALS (20-25 KCALS/ KG) 65-74 G PRO (0.8-0.9 G/KG) 9173-9721 ML FLUIDS (35-40 ML/ KG) PT PO INTAKE: 75-100% DIETARY IS CURRENTLY PROVIDING 2434 KCALS AND 96 GM PRO. WITH PT PO INTAKE, PT IS RECEIVING AN ESTIMATED 100%+ KCAL AND 100%+ PRO REQUIREMENTS- ADEQUATE. Pertinent Medications LIPITOR, OS-SONIA, COLACE, MOM Pertinent Labs 02/04: ALB 3.5 02/05: HGB/HCT 11.9/36.1, BUN/ CR 26/0.9 07/10: POC GLUC 59 Nutritional Hx/Data Height 1.6 m Height (Calculated Centimeters) 160.0 Current Weight (lbs) 81.647 kg Weight (Calculated Kilograms) 81.6 Weight (Calculated Grams) 95518.6 [place] Body Weight 115 % [place] Body Weight 157 Body Mass Index (BMI) 31.8 Weight Status Obese GI Symptoms GI Symptoms None Last BM 02/08 X1 Skin Integrity/Comment: WNL Current %PO Good (75-100%) Estimated Nutritional Goals BEE in Kcals: Using Current wt Calories/Kcals/Kg 20-25 Kcals Calculated 0619-2163 Protein g/k.8-0.9 Protein Calculated 65-74 Fluid: ml 8153-7461 Nutritional Problem No current Nutrition Prob Problem N/A Etiology N/A Signs/Symptoms: N/A Malnutrition Related to Morbid Obesity Malnutrition related to morbid obesity No Intervention/Recommendation Comments 1. CONTINUE 2 GM NA DIET ORDERED. 2. MONITOR WT, SKIN INTEGRITY, NUTRITTION RELATED LABS, AND PO INTAKE. Expected Outcomes/Goals Expected Outcomes/Goals 1. PT TO CONTINUE TO MEET >75% NUTRITIONAL NEEDS. 2. WT STABILITY, SKIN INTEGRITY WNL, NUTRITION RELATED LABS WNL.
[2019-02-19] MEDS: Atorvastatin Calcium 10 MG TAB PO SCH (20:29)
--- NOTE | 2019-02-19 21:11 | Progress Notes ---
DATE: SUBJECTIVE: The patient seen, chart reviewed, discussed with staff. The patient remains confused, forgetful, still down, depressed, seems to be approaching to baseline. No visual disturbance, fairly calm, cooperative, AO x name only, some irritability, poor impulse control, but otherwise seems to be calm and better able to control her agitation. We will monitor for further 24 hours. Medications were noted. We will discuss with staff and prepare for a step-down. [facility]# [id number]
[2019-02-20] MEDS: Aspirin 81mg Chewable Tab PO SCH (09:19)
[2019-02-20] MEDS: Lactobacillus Rhamnosus GG 15 Billion CFU CAP.SPRINK PO SCH (09:20)
[2019-02-20] MEDS: Multivitamin w/ Minerals Tab PO SCH (09:20)
--- NOTE | 2019-02-20 13:36 | Internal Medicine Prog Note ---
Internal Medicine Subjective - Subjective Service Date: 02/20/19 Patient seen and examined:: with staff Patient is:: awake, verbal, agitated, confused Patient Complaints of:: other Per staff patient has:: no adverse event, no episodes of fall, agitated, combative Internal Medicine Objective - Physical Exam Vitals and I&O: Vital Signs Temp 98.0 F 02/20/19 10:09 Pulse 84 02/20/19 10:09 Resp 20 02/20/19 10:09 BP 128/72 02/20/19 06:08 Pulse Ox 95 02/20/19 10:09 Intake & Output 02/19/19 02/20/19 02/20/19 18:59 06:59 18:59 Intake Total 1500 180 Balance 1500 180 Intake: Oral 1500 180 Other: # Voids 3 1 # Bowel Movements 0 1 Active Medications: Current Medications Acetaminophen (Tylenol) 650 mg PO Q4HR PRN PRN Reason: Fever > 101 OR MILD PAIN Stop: 04/08/19 00:18 Acetaminophen (Tylenol Extra Strength) 1,000 mg PO Q4H PRN PRN Reason: Pain (Moderate) Stop: 04/08/19 00:18 Aspirin (Aspirin Chewable) 81 mg PO DAILY [facility] Stop: 04/08/19 08:59 Last Admin: 02/20/19 09:19 Dose: Not Given Atorvastatin Calcium (Lipitor) 10 mg PO HS [facility]; Protocol Stop: 04/08/19 20:59 Last Admin: 02/19/19 20:29 Dose: 10 mg Calcium Carbonate (Os-Sonia) 1,250 mg PO DAILY [facility] Stop: 04/08/19 08:59 Last Admin: 02/20/19 09:20 Dose: Not Given Docusate Sodium (Colace) 250 mg PO DAILY [facility] Stop: 04/08/19 08:59 Last Admin: 02/20/19 09:20 Dose: Not Given Ergocalciferol (Vitamin D2) 50,000 iu PO Fr@0800 [facility] Stop: 04/09/19 07:59 Last Admin: 02/15/19 09:50 Dose: Not Given Hydralazine HCl (Apresoline) 20 mg PO TID [facility] Stop: 04/08/19 08:59 Last Admin: 02/20/19 09:20 Dose: Not Given Lactobacillus Rhamnosus (Culturelle 15b) 1 each PO DAILY [facility] Stop: 04/10/19 08:59 Last Admin: 02/20/19 09:20 Dose: Not Given Lorazepam (Ativan) 0.5 mg PO Q4H PRN; Protocol PRN Reason: Anxiety Stop: 04/08/19 00:09 Last Admin: 02/17/19 09:46 Dose: 0.5 mg Magnesium Hydroxide (Milk Of Magnesia) 30 ml PO HS PRN PRN Reason: Constipation Stop: 04/08/19 00:18 Memantine (Namenda) 10 mg PO Q12HR [place] Stop: 04/08/19 00:29 Last Admin: 02/20/19 09:20 Dose: Not Given Miscellaneous (Probiotic Screen) 1 ea MC PRN PRN PRN Reason: PROTOCOL Stop: 04/09/19 10:51 Miscellaneous (Misc Oral Tab) 1.5 tab PO HS [place] Stop: 04/14/19 20:59 Last Admin: 02/19/19 20:30 Dose: 1.5 tab Quetiapine Fumarate (Seroquel) 25 mg PO BID [place]; Protocol Stop: 04/08/19 08:59 Last Admin: 02/20/19 09:20 Dose: Not Given Quetiapine Fumarate (Seroquel) 25 mg PO HS [place]; Protocol Stop: 04/08/19 20:59 Last Admin: 02/19/19 20:30 Dose: 25 mg Zolpidem Tartrate (Ambien) 5 mg PO HS PRN PRN Reason: Insomnia Stop: 04/08/19 00:09 Last Admin: 02/17/19 20:58 Dose: 5 mg Physical Exam: 83 y/o female patient is still having mood swings, uncooperative, still has episodes of yelling and screaming,continues to be easily agitated and frustrated. General: weak HEENT: NC/AT Neck: Supple Lungs: CTAB Cardiovascular: RRR Abdomen: soft, non-tender Extremities: clear Neurological: no change - Procedures Procedures: Procedures Procedure Code Date GROUP PSYCHOTHERAPY [id number] 11/25/16 SUPPLEMENT L COM CAROTID WITH SYNTH SUB, OPEN APPROACH [id number] 07/06/18 Internal Medicine Assmt/Plan - Assessment Assessment: Paranoid. Acute Uti. Dementia. Hypercholesterolemia. Psychosis. - Plan Plan: Continuation of care. Monitor Vitals and Labs. Continue present meds as directed. Monitor Diet/ Low sodium diet /Nutritional support. Psych management per Psych. Pain Management. Fall precaution, frequent nursing rounds, and as needed restraints to prevent fall. Safety precaution. Supportive care. Continue collaborating with consulting specialists, case management and nursing team. Will Monitor patient and continue present management. Nutritional Asmnt/Malnutr-PDOC - Dietary Evaluation Malnutrition Findings (Please click <Entered> for more info): Nutritional Asmnt/Malnutrition Start: 02/08/19 15: 42 Text: Status: Active Freq: Protocol: Document 02/08/19 15:44 INDIO (Rec: 02/08/19 16:13 INDIO [email or web address]) Nutritional Asmnt/Malnutrition Patient General Information Nutritional Screening Moderate Risk Diagnosis PSYCHOSIS Pertinent Medical Hx/Surgical Hx HYPERCHOLESTEROLEMIA, HTN, PSYCHOSIS, DEMENTIA, MSRA Subjective Information PT IS A 83 YEAR OLD FEMALE ADMITTED FROM MED/SURG UNIT D/ T INCREASED AGITATION AND REFUSING MEDICATIONS. HT: 53 WT: 180 (81.8KG) BMI: 31.89 (OBESE) ABW: 131 LB (59.5KG) GI: WNL BM: 02/08 X1 I/O: 1520/ NO NOTED SKIN: WNL SUSAN: 15 DIET ORDER: 2GM NA ESTIMATED ENERGY NEEDS: 3330-7893 KCALS (20-25 KCALS/ KG) 65-74 G PRO (0.8-0.9 G/KG) 0028-8198 ML FLUIDS (35-40 ML/ KG) PT PO INTAKE: 75-100% DIETARY IS CURRENTLY PROVIDING 2434 KCALS AND 96 GM PRO. WITH PT PO INTAKE, PT IS RECEIVING AN ESTIMATED 100%+ KCAL AND 100%+ PRO REQUIREMENTS- ADEQUATE. Pertinent Medications LIPITOR, OS-SONIA, COLACE, MOM Pertinent Labs 02/04: ALB 3.5 02/05: HGB/HCT 11.9/36.1, BUN/ CR 26/0.9 07/10: POC GLUC 59 Nutritional Hx/Data Height 1.6 m Height (Calculated Centimeters) 160.0 Current Weight (lbs) 81.647 kg Weight (Calculated Kilograms) 81.6 Weight (Calculated Grams) 36679.6 [place] Body Weight 115 % [place] Body Weight 157 Body Mass Index (BMI) 31.8 Weight Status Obese GI Symptoms GI Symptoms None Last BM 02/08 X1 Skin Integrity/Comment: WNL Current %PO Good (75-100%) Estimated Nutritional Goals BEE in Kcals: Using Current wt Calories/Kcals/Kg 20-25 Kcals Calculated 4579-9627 Protein g/k.8-0.9 Protein Calculated 65-74 Fluid: ml 3498-9812 Nutritional Problem No current Nutrition Prob Problem N/A Etiology N/A Signs/Symptoms: N/A Malnutrition Related to Morbid Obesity Malnutrition related to morbid obesity No Intervention/Recommendation Comments 1. CONTINUE 2 GM NA DIET ORDERED. 2. MONITOR WT, SKIN INTEGRITY, NUTRITTION RELATED LABS, AND PO INTAKE. Expected Outcomes/Goals Expected Outcomes/Goals 1. PT TO CONTINUE TO MEET >75% NUTRITIONAL NEEDS. 2. WT STABILITY, SKIN INTEGRITY WNL, NUTRITION RELATED LABS WNL.
--- NOTE | 2019-02-21 02:29 | Discharge Summary ---
DATE OF DISCHARGE: 02/20/2019 HISTORY OF PRESENT ILLNESS: An 83-year-old female coming to the hospital, very confused, disoriented, unruly, could not be cared for at a lower level of care. She remained confused in the hospital, irritable, upset on initial presentation. PAST PSYCHIATRIC HISTORY: Dementia. SOCIAL HISTORY: Noted. HOSPITAL COURSE: At initial assessment, the patient was started on medications which were adjusted and titrated. Over the course of the treatment; her mood improved, affect improved. She remains confused, disoriented, but not combative, not aggressive. No yelling and screaming episodes. Toward the latter end of treatment, placement was confirmed. She was significantly calmer, just confused. CONDITION UPON DISCHARGE: Improved, allowing ADLs, calm, no aggressive behaviors, AO to name only. No SI, no HI. No overt psychotic symptoms. PROVISIONAL DIAGNOSES: Dementia, dementia with behaviors; psychosis, unspecified; mood, unspecified; anxiety, unspecified. MEDICAL: Please see full H and P. PROGNOSIS: The patient follows up with outpatient mental health services and remains compliant with treatment. Prognosis will improve; otherwise, guarded. JOB# [id number]
== END 2019-02-20 13:05 | DRG 885 ==
LOC: GERO 21:15
PROVIDERS: ADMIT Psychiatry & Neurology Psychiatry; ATTEND Psychiatry & Neurology Psychiatry
DX: F29 Unspecified psychosis not due to a substance or known physiological condition (principal); N39.0 Urinary tract infection, site not specified; F03.91 Unspecified dementia, unspecified severity, with behavioral disturbance; E78.00 Pure hypercholesterolemia, unspecified; F41.9 Anxiety disorder, unspecified; E78.5 Hyperlipidemia, unspecified; M19.90 Unspecified osteoarthritis, unspecified site; E55.9 Vitamin D deficiency, unspecified
CPT/HCPCS: 83036-90; 90899; 94760; Z7610